=== PATIENT | female | born 1985 | race Caucasian/White ===

== ENCOUNTER 2018-08-31 21:34 | Emergency (ER) | payer MEDICAID, SELFPAY ==
[2018-08-31 21:39] VITALS: BP 158/81; PULSE 102; RESP 22; TEMP 36.9; O2SAT 99
[2018-08-31] MEDS: Albuterol/Ipratropium 3 ML UPD VIAL (21:46)
[2018-08-31] MEDS: Dexamethasone 4 MG TAB 8 MG PO (21:57)
--- NOTE | 2018-08-31 22:06 | DI.RAD_ITS ---
SYMPTOM/DIAGNOSIS: COUGH AFTER EXPOSURE TO MOLD PA AND LATERAL CHEST: The heart is normal in size. The lungs are clear. The mediastinal structures and pleura appear intact. CONCLUSION: Normal chest. No evidence of acute cardiopulmonary disease.
[2018-08-31 22:37] VITALS: BP 113/79; PULSE 108; O2SAT 100
[2018-08-31] MEDS: Albuterol/Ipratropium 3 ML UPD VIAL UPD (22:38)
[2018-08-31] MEDS: guaiFENesin/CODEINE PHOSPHATE 10 ML CUP PO (22:50)
--- NOTE | 2018-08-31 23:02 | W.ED.GENAD ---
Discharge Plan Disposition Patient Disposition: HOME Condition: Improving Discharge Details Chief Complaint: RespSymp Clinical Impression: Exacerbation of reactive airway disease Primary Care Provider: Graciela Mohamud ED Provider: Lucien Young Home Meds and New Rx's Prescriptions: New dexamethasone 6 mg tablet 6 mg PO DAILY Qty: 4 RF: 0 Robitussin Cough-Chest Vargas DM 5-100 mg/5 mL liquid 10 ml PO Q6H PRN (Reason: cough) Qty: 237 RF: 0 benzonatate [Tessalon Perles] 100 mg capsule 100 mg PO TID PRN (Reason: cough) Qty: 14 RF: 0 Continued venlafaxine [Effexor XR] 37.5 MG capsule,extended release 24hr 75 mg PO DAILY RF: 0 venlafaxine [Effexor XR] 37.5 MG capsule,extended release 24hr 150 mg PO DAILY RF: 0 pantoprazole 40 MG tablet,delayed release (DR/EC) 40 mg PO DAILY RF: 0 levothyroxine [Synthroid] 75 MCG tablet 75 mcg PO DAILY RF: 0 albuterol sulfate 8.5 GM HFA aerosol inhaler 2 puff Inhalation QID PRN PRNRF: 0 methylphenidate HCl [Ritalin] 20 MG tablet 20 mg PO TID RF: 0 metformin [Glucophage] 1,000 MG tablet 500 mg PO TID RF: 0 loratadine [Claritin Liqui-Gel] 10 MG capsule 1 tab PO DAILY RF: 0 No Action hydrocodone-acetaminophen 5-300 mg tablet 1 tab PO Q6H PRN (Reason: pain) Qty: 10 RF: 0 Discharge Instructions Instructions: Reactive Airways Disease (ED) Additional Instructions: Rest this evening. Small, frequent sips of fluids to maintain hydration. May try a teaspoon of honey at night to decrease her cough as well. Take dexamethasone as prescribed May use the provided Robitussin, Tessalon and subsequent prescription as needed for cough. Albuterol as needed for cough and wheeze. Please follow-up with your regular doctor in the next 7-10 days time for recheck Discharge Data Discharge Date/Time-TO BE ENTERED AT DEPARTURE: 08/31/18 23:56 Medical Decision Making 32-year-old female presents from home with cough and shortness of breath that worsened when her landlord attempted to investigate mold in the [place] of her apartment. She does have a history of reactive airway disease. She arrives afebrile, mildly tachycardic at 102 with diminished breath sounds throughout. Differential diagnosis includes asthma exacerbation, pneumonia, must exclude pneumothorax. Patient was given oral steroids and inhaled DuoNeb as well as antitussive. Referred for chest x-ray. Chest x-ray unremarkable. Patient improved with treatment for reactive airway disease. She will follow-up with her landlord regarding mold in the domicile. Treated with a burst steroids, dexamethasone given her intolerance of prednisone. She also be prescribed antitussive. Stable for discharge to home HPI General Mode of arrival: ambulatory. Date/Time Provider Initiated Documentation: 08/31/18 21:41. Limitations to Documentation: no limitations. Information obtained by: patient and family. History of Present Illness 32 year old F presents to the emergency department with the chief complaint of Cough and shortness of breath after mold exposure, described as moderate, Quality is described as dull and constant, and is localized to the chest. Patient reports no radiation. Patient started experiencing this hour(s) and it has been constant. No relieving factors improve symptom(s), No exacerbating factors reported . Patient notes cough and shortness of breath; denies chest pain and fever/chills. Patient did receive the following treatments prior to arrival, other (Home inhaler) Related Data Home Medications Medication Instructions Recorded Confirmed pantoprazole 40 mg PO DAILY 03/19/13 09/05/18 levothyroxine [Synthroid] 75 mcg PO DAILY 06/23/13 09/05/18 albuterol sulfate 2 puff INHALATION QID PRN PRN 08/31/14 09/05/18 venlafaxine [Effexor XR] 75 mg PO DAILY tab-cap 07/26/16 09/05/18 venlafaxine [Effexor XR] 150 mg PO DAILY tab-cap 07/26/16 09/05/18 loratadine [Claritin Liqui-Gel] 1 tab PO DAILY 03/18/17 09/05/18 metformin [Glucophage] 500 mg PO TID 03/18/17 09/05/18 methylphenidate HCl [Ritalin] 20 mg PO TID 03/18/17 09/05/18 Robitussin Cough-Chest Vargas DM 10 ml PO Q6H PRN #237 ml 08/31/18 09/05/18 benzonatate [Tessalon Perles] 100 mg PO TID PRN #14 cap 08/31/18 09/05/18 dexamethasone 6 mg PO DAILY #4 tab 08/31/18 09/05/18 hydrocodone-acetaminophen 1 tab PO Q6H PRN #10 tab 09/05/18 Previous Rx's Medication Instructions Recorded Robitussin Cough-Chest Vargas DM 10 ml PO Q6H PRN #237 ml 08/31/18 benzonatate [Tessalon Perles] 100 mg PO TID PRN #14 cap 08/31/18 dexamethasone 6 mg PO DAILY #4 tab 08/31/18 hydrocodone-acetaminophen 1 tab PO Q6H PRN #10 tab 09/05/18 Allergies Allergy/AdvReac Type Severity Reaction Status Date / Time Sulfa (Sulfonamide Allergy rash/vomiti Unverified 09/05/18 05:03 Antibiotics) ng ibuprofen AdvReac Psychosis Unverified 09/05/18 05:03 prednisone AdvReac flashes of Unverified 09/05/18 05:03 light/feels drunk General Stated Complaint: RespSymp TANA: 4 Review of Systems Review of Systems Patient concern for mold in home. Landlord investigated today and cough increased. 6 systems reviewed and otherwise negative [facility] Medical History deep vein thrombosis with complication Depression Impaired glucose tolerance Irritable colon Menorrhagia Positive urine drug screen Subclinical hypothyroidism Surgical History section Dilation and curettage (06/23/13) Hysterectomy, Laproscopic Ligation of fallopian tube (11/27/07) Sigmoidoscopy Family History Father Diabetes Heart disease Hyperlipidemia Grandmother Diabetes paternal uncle Mental disorder Social History Smoking/Tobacco Use Status: Never Alcohol Intake: never Drug use: Never Substance use type: does not use Do you feel safe in your relationship?: Yes Additional Social history: unable to assess privately Exam Narrative Exam Narrative: GEN: awake, alert, oriented 3. Pleasant, well groomed, interactive. HEAD: Normocephalic, atraumatic ENT: Mucous membranes moist, oropharynx unremarkable, External ear exam unremarkable EYES: PERRL, EOMI NECK: Full ROM, no ISMA, no menigismus CHEST/RESP: Nontender, diminished bilaterally with end expiratory wheeze. Cough noted. CARDIOVASCULAR: RRR, no murmur, rub delroy. 2+ Rad pulse bilateral ABDOMEN: Soft, nontender, no mass. +Bowel sounds EXT: Full ROM, no edema, no rash Neuro: Grossly normal neurologic exam, conversant, interactive. Psych: Speech fluent, thoughts congruent, affect normal Course Vital Signs Temperature 36.9 C 08/31/18 21:39 Pulse 102 H 08/31/18 21:39 Respiratory Rate 22 08/31/18 21:39 Blood Pressure 158/81 H 08/31/18 21:39 Pulse Oximetry 99 08/31/18 21:39 Temperature 36.9 C 08/31/18 21:39 Temperature Source Skin 08/31/18 21:39 Pulse 108 H 08/31/18 22:37 Respiratory Rate 22 08/31/18 21:39 Respiratory Effort 08/31/18 21:50 Respiratory Depth Normal 08/31/18 21:50 Blood Pressure 113/79 08/31/18 22:37 Blood Pressure Position Sitting 08/31/18 21:39 Pulse Oximetry 100 08/31/18 22:37 Oxygen Delivery Method Room Air 08/31/18 22:37 Oxygen Flow Rate 0 08/31/18 22:37 Pain Level 6 08/31/18 21:39
--- NOTE | 2018-08-31 23:08 | ED.GENADUL_ITS ---
Discharge Plan Disposition Patient Disposition: HOME Condition: Improving Discharge Details Chief Complaint: RespSymp Clinical Impression: Exacerbation of reactive airway disease Primary Care Provider: Graciela Mohamud ED Provider: Lucien Young Home Meds and New Rx's Prescriptions: New dexamethasone 6 mg tablet 6 mg PO DAILY Qty: 4 RF: 0 Robitussin Cough-Chest Vargas DM 5-100 mg/5 mL liquid 10 ml PO Q6H PRN (Reason: cough) Qty: 237 RF: 0 benzonatate [Tessalon Perles] 100 mg capsule 100 mg PO TID PRN (Reason: cough) Qty: 14 RF: 0 Continued venlafaxine [Effexor XR] 37.5 MG capsule,extended release 24hr 75 mg PO DAILY RF: 0 venlafaxine [Effexor XR] 37.5 MG capsule,extended release 24hr 150 mg PO DAILY RF: 0 pantoprazole 40 MG tablet,delayed release (DR/EC) 40 mg PO DAILY RF: 0 levothyroxine [Synthroid] 75 MCG tablet 75 mcg PO DAILY RF: 0 albuterol sulfate 8.5 GM HFA aerosol inhaler 2 puff Inhalation QID PRN PRNRF: 0 methylphenidate HCl [Ritalin] 20 MG tablet 20 mg PO TID RF: 0 metformin [Glucophage] 1,000 MG tablet 500 mg PO TID RF: 0 loratadine [Claritin Liqui-Gel] 10 MG capsule 1 tab PO DAILY RF: 0 No Action hydrocodone-acetaminophen 5-300 mg tablet 1 tab PO Q6H PRN (Reason: pain) Qty: 10 RF: 0 Discharge Instructions Instructions: Reactive Airways Disease (ED) Additional Instructions: Rest this evening. Small, frequent sips of fluids to maintain hydration. May try a teaspoon of honey at night to decrease her cough as well. Take dexamethasone as prescribed May use the provided Robitussin, Tessalon and subsequent prescription as needed for cough. Albuterol as needed for cough and wheeze. Please follow-up with your regular doctor in the next 7-10 days time for recheck Discharge Data Discharge Date/Time-TO BE ENTERED AT DEPARTURE: 08/31/18 23:56 Medical Decision Making 32-year-old female presents from home with cough and shortness of breath that worsened when her landlord attempted to investigate mold in the [place] of her apartment. She does have a history of reactive airway disease. She arrives afebrile, mildly tachycardic at 102 with diminished breath sounds throughout. Differential diagnosis includes asthma exacerbation, pneumonia, must exclude pneumothorax. Patient was given oral steroids and inhaled DuoNeb as well as antitussive. Referred for chest x-ray. Chest x-ray unremarkable. Patient improved with treatment for reactive airway disease. She will follow-up with her landlord regarding mold in the domicile. Treated with a burst steroids, dexamethasone given her intolerance of prednisone. She also be prescribed antitussive. Stable for discharge to home HPI General Mode of arrival: ambulatory . Date/Time Provider Initiated Documentation: 08/31/18 21:41 . Limitations to Documentation: no limitations . Information obtained by: patient and family . History of Present Illness 32 year old F presents to the emergency department with the chief complaint of Cough and shortness of breath after mold exposure, described as moderate, Quality is described as dull and constant, and is localized to the chest. Patient reports no radiation. Patient started experiencing this hour(s) and it has been constant. No relieving factors improve symptom(s), No exacerbating factors reported . Patient notes cough and shortness of breath; denies chest pain and fever/chills. Patient did receive the following treatme nts prior to arrival, other (Home inhaler) Related Data Home Medications Medication Instructions Recorded Confirmed pantoprazole 40 mg PO DAILY 03/19/13 09/05/18 levothyroxine [Synthroid] 75 mcg PO DAILY 06/23/13 09/05/18 albuterol sulfate 2 puff INHALATION QID PRN PRN 08/31/14 09/05/18 venlafaxine [Effexor XR] 75 mg PO DAILY tab-cap 07/26/16 09/05/18 venlafaxine [Effexor XR] 150 mg PO DAILY tab-cap 07/26/16 09/05/18 loratadine [Claritin Liqui-Gel] 1 tab PO DAILY 03/18/17 09/05/18 metformin [Glucophage] 500 mg PO TID 03/18/17 09/05/18 methylphenidate HCl [Ritalin] 20 mg PO TID 03/18/17 09/05/18 Robitussin Cough-Chest Vargas DM 10 ml PO Q6H PRN #237 ml 08/31/18 09/05/18 benzonatate [Tessalon Perles] 100 mg PO TID PRN #14 cap 08/31/18 09/05/18 dexamethasone 6 mg PO DAILY #4 tab 08/31/18 09/05/18 hydrocodone-acetaminophen 1 tab PO Q6H PRN #10 tab 09/05/18 Previous Rx's Medication Instructions Recorded Robitussin Cough-Chest Vargas DM 10 ml PO Q6H PRN #237 ml 08/31/18 benzonatate [Tessalon Perles] 100 mg PO TID PRN #14 cap 08/31/18 dexamethasone 6 mg PO DAILY #4 tab 08/31/18 hydrocodone-acetaminophen 1 tab PO Q6H PRN #10 tab 09/05/18 Allergies Allergy/AdvReac Type Severity Reaction Status Date / Time Sulfa (Sulfonamide Allergy rash/vomiti Unverified 09/05/18 05:03 Antibiotics) ng ibuprofen AdvReac Psychosis Unverified 09/05/18 05:03 prednisone AdvReac flashes of Unverified 09/05/18 05:03 light/feels drunk General Stated Complaint: RespSymp TANA: 4 Review of Systems Review of Systems Patient concern for mold in home. Landlord investigated today and cough increased. 6 systems reviewed and otherwise negative [facility] Medical History deep vein thrombosis with complication Depression Impaired glucose tolerance Irritable colon Menorrhagia Positive urine drug screen Subclinical hypothyroidism Surgical History section Dilation and curettage (06/23/13) Hysterectomy, Laproscopic Ligation of fallopian tube (11/27/07) Sigmoidoscopy Family History Father Diabetes Heart disease Hyperlipidemia Grandmother Diabetes paternal uncle Mental disorder Social History Smoking/Tobacco Use Status: Never Alcohol Intake: never Drug use: Never Substance use type: does not use Do you feel safe in your relationship?: Yes Additional Social history: unable to assess privately Exam Narrative Exam Narrative: GEN: awake, alert, oriented 3. Pleasant, well groomed, interactive. HEAD: Normocephalic, atraumatic ENT: Mucous membranes moist, oropharynx unremarkable, External ear exam unremarkable EYES: PERRL, EOMI NECK: Full ROM, no ISMA, no menigismus CHEST/RESP: Nontender, diminished bilaterally with end expiratory wheeze. Cough noted. CARDIOVASCULAR: RRR, no murmur, rub delroy. 2+ Rad pulse bilateral ABDOMEN: Soft, nontender, no mass. +Bowel sounds EXT: Full ROM, no edema, no rash Neuro: Grossly normal neurologic exam, conversant, interactive. Psych: Speech fluent, thoughts congruent, affect normal Course Vital Signs Temperature 36.9 C 08/31/18 21:39 Pulse 102 H 08/31/18 21:39 Respiratory Rate 22 08/31/18 21:39 Blood Pressure 158/81 H 08/31/18 21:39 Pulse Oximetry 99 08/31/18 21:39 Temperature 36.9 C 08/31/18 21:39 Temperature Source Skin 08/31/18 21:39 Pulse 108 H 08/31/18 22:37 Respiratory Rate 22 08/31/18 21:39 Respiratory Effort 08/31/18 21:50 Respiratory Depth Normal 08/31/18 21:50 Blood Pressure 113/79 08/31/18 22:37 Blood Pressure Position Sitting 08/31/18 21:39 Pulse Oximetry 100 08/31/18 22:37 Oxygen Delivery Method Room Air 08/31/18 22:37 Oxygen Flow Rate 0 08/31/18 22:37 Pain Level 6 08/31/18 21:39
--- NOTE | 2018-08-31 23:23 | DI.VRAD_ITS ---
EXAM: XR Chest, 2 Views EXAM DATE/TIME: 08/31/2018 10:07 PM CLINICAL HISTORY: 32 years old, female; Signs and symptoms; Cough; Patient HX: Cough after exposure to mold TECHNIQUE: XR of the chest, 2 views. COMPARISON: CR CHEST 2 VIEWS PA,LAT 03/18/2017 6:35 PM FINDINGS: Lungs: Unremarkable. No consolidation. Pleural space: Unremarkable. No pleural effusion. No pneumothorax. Heart/Mediastinum: Unremarkable. No cardiomegaly. Bones/joints: Unremarkable. IMPRESSION: Negative chest. Dictated and Authenticated by: Dereck Cazares MD. Ordering:LIBBY Mcgraw MD
[2018-08-31] MEDS: Albuterol HFA 8 GM 60 PUFF INH IH (23:47)
[2018-08-31] MEDS: Benzonatate 100 MG CAP 300 MG PO (23:47)
[2018-08-31] MEDS: guaiFENesin/CODEINE PHOSPHATE 10 ML CUP 20 ML PO (23:53)
[2018-08-31 23:55] VITALS: BP 148/67; PULSE 109; RESP 18; TEMP 37.1; O2SAT 99
== END 2018-08-31 23:56 | disposition home or self-care (01) ==
PROVIDERS: Emergency Provider Emergency Medicine; PCP Nurse Practitioner Family
DX: J18.9 Pneumonia, unspecified organism (principal)
CPT/HCPCS: 94640; 99283; 71046; J7620; J8540

== ENCOUNTER 2018-09-05 04:25 | Emergency (ER) | payer MEDICAID, SELFPAY ==
[2018-09-05 04:32] VITALS: BP 129/89; PULSE 102; RESP 16; TEMP 36.5; O2SAT 96
--- NOTE | 2018-09-05 04:39 | ED.GENADUL_ITS ---
Discharge Plan Disposition Patient Disposition: HOME Condition: Good Discharge Details Chief Complaint: Orthopedic Clinical Impression: Left knee injury Primary Care Provider: Graciela Mohamud ED Provider: Yannick Johnson [place] Meds and New Rx's Prescriptions: New hydrocodone-acetaminophen 5-300 mg tablet 1 tab PO Q6H PRN (Reason: pain) Qty: 10 RF: 0 Continued venlafaxine [Effexor XR] 37.5 MG capsule,extended release 24hr 75 mg PO DAILY RF: 0 venlafaxine [Effexor XR] 37.5 MG capsule,extended release 24hr 150 mg PO DAILY RF: 0 pantoprazole 40 MG tablet,delayed release (DR/EC) 40 mg PO DAILY RF: 0 levothyroxine [Synthroid] 75 MCG tablet 75 mcg PO DAILY RF: 0 albuterol sulfate 8.5 GM HFA aerosol inhaler 2 puff Inhalation QID PRN PRNRF: 0 methylphenidate HCl [Ritalin] 20 MG tablet 20 mg PO TID RF: 0 metformin [Glucophage] 1,000 MG tablet 500 mg PO TID RF: 0 loratadine [Claritin Liqui-Gel] 10 MG capsule 1 tab PO DAILY RF: 0 dexamethasone 6 mg tablet 6 mg PO DAILY Qty: 4 RF: 0 Robitussin Cough-Chest Vargas DM 5-100 mg/5 mL liquid 10 ml PO Q6H PRN (Reason: cough) Qty: 237 RF: 0 benzonatate [Tessalon Perles] 100 mg capsule 100 mg PO TID PRN (Reason: cough) Qty: 14 RF: 0 Discharge Instructions Additional Instructions: Wear knee immobilizer and use crutches to help with the knee pain. Weight-bear as tolerated. Elevate and ice over the weekend. Take Aleve twice a day. Use hydrocodone/acetaminophen as needed for uncontrolled pain. Follow-up with primary care next week for reevaluation. May need referral to orthopedics and/or MRI if continued significant pain and swelling to rule out cartilage or ligament injury. Referrals: Graciela Mohamud [Primary Care Provider] - Medical Decision Making Patient reports allergy to Motrin but has had Toradol in the past and tolerated. She will be given a shot of Toradol. There is no direct trauma to t he knee but it does appear to have an effusion. She is able to extend and lift her heel off the bed though causes significant pain. However, patellar and quadricep tendon intact with the ability to extend. Doubt bony injury but I am not able to examined the knee at all. Will obtain x-ray but suspect this is related to cartilage injury with effusion causing the majority of her pain. X-rays per my read as well as preliminary radiology read negative for bony injury. She will be placed in a knee immobilizer and put on weightbearing as tolerated status. Toradol has not really helped so she is given a dose of Vicodin. I did review her in the [place] prescription monitoring site. She has no narcotic prescriptions only her Ritalin. Vicodin and immobilization has helped significantly. She still has pain but it is manageable. She would like crutches and will be weightbearing as tolerated over the weekend. She does tolerate Aleve so I will have her use that twice a day. I will give her prescription for 10 Vicodin. State information sheet given and informed consent signed. She is to keep the leg elevated and iced. Follow-up with primary care and may need referral to orthopedics for possible meniscal or ligamentous injury. HPI General Mode of arrival: ambulatory . Date/Time Provider Initiated Documentation: 09/05/18 04:36 . Limitations to Documentation: no limitations . Information obtained by: patient . HPI Narrative: Patient presents to ED with complaints of worsening left knee pain. Patient reports hyperextending and twisting the knee when getting off her couch yesterday. 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 She denies direct trauma to the knee. She has been using heat, ice, Tylenol, gabapentin but the knee continues to get worse. She is having difficulty with range of motion or weightbearing because of pain. She denies other injury. She only has pain in the left knee not throughout the left leg. Related Data Home Medications Medication Instructions Recorded Confirmed pantoprazole 40 mg PO DAILY 03/19/13 09/05/18 levothyroxine [Synthroid] 75 mcg PO DAILY 06/23/13 09/05/18 albuterol sulfate 2 puff INHALATION QID PRN PRN 08/31/14 09/05/18 venlafaxine [Effexor XR] 75 mg PO DAILY tab-cap 07/26/16 09/05/18 venlafaxine [Effexor XR] 150 mg PO DAILY tab-cap 07/26/16 09/05/18 loratadine [Claritin Liqui-Gel] 1 tab PO DAILY 03/18/17 09/05/18 metformin [Glucophage] 500 mg PO TID 03/18/17 09/05/18 methylphenidate HCl [Ritalin] 20 mg PO TID 03/18/17 09/05/18 Robitussin Cough-Chest Vargas DM 10 ml PO Q6H PRN #237 ml 08/31/18 09/05/18 benzonatate [Tessalon Perles] 100 mg PO TID PRN #14 cap 08/31/18 09/05/18 dexamethasone 6 mg PO DAILY #4 tab 08/31/18 09/05/18 hydrocodone-acetaminophen 1 tab PO Q6H PRN #10 tab 09/05/18 Previous Rx's Medication Instructions Recorded Robitussin Cough-Chest Vargas DM 10 ml PO Q6H PRN #237 ml 08/31/18 benzonatate [Tessalon Perles] 100 mg PO TID PRN #14 cap 08/31/18 dexamethasone 6 mg PO DAILY #4 tab 08/31/18 hydrocodone-acetaminophen 1 tab PO Q6H PRN #10 tab 09/05/18 Allergies Allergy/AdvReac Type Severity Reaction Status Date / Time Sulfa (Sulfonamide Allergy rash/vomiti Unverified 09/05/18 05:03 Antibiotics) ng ibuprofen AdvReac Psychosis Unverified 09/05/18 05:03 prednisone AdvReac flashes of Unverified 09/05/18 05:03 light/feels drunk General Stated Complaint: Orthopedic TANA: 4 Review of Systems Constitutional Denies fever(s) and Denies weakness Musculoskeletal Reports joint swelling, Reports limited range of motion, Denies numbness and Denies tingling Integumentary/Breasts Denies erythema Neurologic Denies numbness, Denies tingling, Denies paresthesias and Denies weakness [facility] Medical History deep vein thrombosis with complication Depression Impaired glucose tolerance Irritable colon Menorrhagia Positive urine drug screen Subclinical hypothyroidism Surgical History section Dilation and curettage (06/23/13) Hysterectomy, Laproscopic Ligation of fallopian tube (11/27/07) Sigmoidoscopy Social History Smoking/Tobacco Use Status: Never Alcohol Intake: never Drug use: Never Substance use type: does not use Do you feel safe in your relationship?: Yes Additional Social history: unable to assess privately Exam Const General: cooperative, uncomfortable and anxious Orientation: alert and oriented x3 Skin General skin exam: no erythema Rashes: no rashes Neuro General: alert, oriented x3, no focal motor deficits and CN's II-XI intact bilaterally Sensory Exam: no sensory deficits noted Extrem General: normal exam except as noted Left lower extremity: knee Details: tenderness (unable to palpate anywhere without pain), swelling (effusion present), abnormal ROM Details: held in an abnormal fashion Details: in flexion (about 10 - 15 degrees); able to extend lower leg actively and other (NVI distal with sensation present, good distal strength and normal DP/PT pulse); no unusual warmth Course Vital Signs Temperature 97.7 F 09/05/18 04:32 Pulse 102 H 09/05/18 04:32 Respiratory Rate 16 09/05/18 04:32 Blood Pressure 129/89 09/05/18 04:32 Pulse Oximetry 96 09/05/18 04:32 Temperature 97.7 F 09/05/18 04:32 Temperature Source Temporal Artery Scan 09/05/18 04:32 Pulse 102 H 09/05/18 04:32 Respiratory Rate 16 09/05/18 04:32 Respiratory Effort Non-Labored 09/05/18 04:35 Blood Pressure 129/89 09/05/18 04:32 Blood Pressure Position Sitting 09/05/18 04:32 Pulse Oximetry 96 09/05/18 04:32 Oxygen Delivery Method Room Air 09/05/18 04:32 Oxygen Flow Rate 0 09/05/18 04:32 Pain Level 10 09/05/18 04:32
[2018-09-05] MEDS: Ketorolac 30 MG/ML VIAL IM (05:00)
--- NOTE | 2018-09-05 05:09 | DI.RAD_ITS ---
SYMPTOM/DIAGNOSIS: PAIN, SWELLING, INDIRECT TRAUMA LEFT KNEE: No fracture or joint effusion is seen. The joint spaces are well maintained. IMPRESSION: Negative left knee.
--- NOTE | 2018-09-05 05:28 | DI.VRAD_ITS ---
EXAM: XR Left Knee, 3 Views EXAM DATE/TIME: 09/05/2018 5:10 AM CLINICAL HISTORY: 32 years old, female; Pain; Knee; Left; Additional info: Hyperextension, pain afterwards TECHNIQUE: Imaging protocol: XR Left knee 3 views. COMPARISON: No relevant prior studies available. FINDINGS: Bones/joints: Bone mineralization is age-appropriate. There is no evidence of fracture. No evidence of dislocation. The joint spaces are adequately preserved; no significant degenerative narrowing and no bony erosion seen. Soft tissues: No radiopaque foreign body present. There is mild soft tissue swelling present. IMPRESSION: 1. No acute osseous abnormality. 2. Soft tissue swelling only. Dictated and Authenticated by: Ronald Nathan MD. Ordering:JOHNNY Lanier MD
[2018-09-05] MEDS: HYDROcodone 5/Acetaminophen 325 TAB PO (05:42)
[2018-09-05 06:42] VITALS: BP 116/77; PULSE 92; RESP 16; TEMP 36.5; O2SAT 96
== END 2018-09-05 06:55 | disposition home or self-care (01) ==
PROVIDERS: Emergency Provider Emergency Medicine; PCP Nurse Practitioner Family
DX: S89.92XA Unspecified injury of left lower leg, initial encounter (principal); M25.462 Effusion, left knee; X50.9XXA Other and unspecified overexertion or strenuous movements or postures, initial encounter
CPT/HCPCS: 73562; 96372; 99284; 99283; E0114; J1885; L1830

== ENCOUNTER 2018-09-11 13:00 | Outpatient (CLI) | payer MEDICAID, SELFPAY ==
--- NOTE | 2018-09-11 15:12 | DI.MRI_ITS ---
SYMPTOM/DIAGNOSIS: LT KNEE PAIN, M25.562, HYPEREXTENSION INJURY, CHRONIC LOW BACK PAIN, LT LEG SYMPTOMS AND NUMBNESS LT LEG LEFT KNEE MRI: MRI examination of the knee was performed according to the usual protocol. There is significant motion artifact on all pulse sequences. This limits interpretation and in particular, the menisci are not well visualized. No significant bony signal abnormality is seen. No significant soft tissue signal abnormality is seen. Extensor mechanism appears intact. Articular cartilage appears grossly well maintained as visualized. The ACL and PCL appear intact. Menisci not well visualized. No gross collateral ligament tear is seen. CONCLUSION: Limited study. No ACL tear is seen. LUMBOSACRAL SPINE MRI: MRI examination of the lumbosacral spine was performed according to the usual protocol. No significant bony signal abnormality is seen. The conus medullaris appears intact. Neural foramina appear well maintained. No disc herniation identified. No evidence of a central canal spinal stenosis. CONCLUSION: Negative MRI of the lumbosacral spine.
== END 2018-09-11 13:20 ==
PROVIDERS: PCP Nurse Practitioner Family; Visit Provider Nurse Practitioner Family
DX: M25.562 Pain in left knee (principal); M54.5 Low back pain; R20.0 Anesthesia of skin; S89.92XD Unspecified injury of left lower leg, subsequent encounter
CPT/HCPCS: 73721; 72148

== ENCOUNTER 2018-10-21 21:02 | Emergency (ER) | payer MEDICAID, SELFPAY ==
[2018-10-21 21:07] VITALS: BP 115/75; PULSE 97; RESP 16; TEMP 36.9; O2SAT 97
--- NOTE | 2018-10-21 21:17 | ED.GENADUL_ITS ---
Discharge Plan Disposition Patient Disposition: HOME Condition: Stable Discharge Details Chief Complaint: Headache Clinical Impression: Migraine Primary Care Provider: Graciela Mohamud ED Provider: Anurag Peoples Home Meds and New Rx's Prescriptions: New ondansetron 4 mg tablet,disintegrating 4 mg PO TID-QID PRN (Reason: nausea and vomiting) Qty: 20 RF: 0 Continued venlafaxine [Effexor XR] 37.5 MG capsule,extended release 24hr 75 mg PO DAILY RF: 0 venlafaxine [Effexor XR] 37.5 MG capsule,extended release 24hr 150 mg PO DAILY RF: 0 pantoprazole 40 MG tablet,delayed release (DR/EC) 40 mg PO DAILY RF: 0 levothyroxine [Synthroid] 75 MCG tablet 75 mcg PO DAILY RF: 0 albuterol sulfate 8.5 GM HFA aerosol inhaler 2 puff Inhalation QID PRN PRNRF: 0 methylphenidate HCl [Ritalin] 20 MG tablet 20 mg PO TID RF: 0 metformin [Glucophage] 1,000 MG tablet 500 mg PO TID RF: 0 loratadine [Claritin Liqui-Gel] 10 MG capsule 1 tab PO DAILY RF: 0 Discharge Instructions Instructions: Migraine Headache (ED) Additional Instructions: follow up as schedule with the neurologist. If you have severe worsening pain, fevers or persistent vomit return to the emergency department Medical Decision Making 33 yo female with hx of migraines comes in with chief complaint of head pain typical of her migraines and has had it for 3 days. She states the pain is throughout the entire head with the front being the worst. Is not the worst of her life and has slowly been worsening, no findings to suggest SAH. Has no focal neuro deficits and CN II-XII are intact. given her symptoms are like her prior migraines and normal neuro exam doubt cavernous sinus thrombosis or cerebral venous thrombosis. No fevers or menignismus so doubt manager technical support infection. will tx her symptomatically and monitor pt feeling better, asleep on repeat exam and pain has improved, stable neuro exam. will d/c home and advised f/u with her neurologist as scheduled on the Differential Diagnosis migraine, tension headache Medical Records Medical records reviewed: Yes I reviewed the patient's medical records. Lab Data Lab results reviewed: Yes I reviewed the patient's lab results. HPI General Mode of arrival: ambulatory . Date/Time Provider Initiated Documentation: 10/21/18 21:04 . Limitations to Documentation: no limitations . Information obtained by: patient . History of Present Illness 33 year old F presents to the emergency department with the chief complaint of headache, described as severe, Quality is described as stabbing and aching, and is localized to the head. Patient reports no radiation. Patient started experiencing this hour(s) (1) Related Data Home Medications Medication Instructions Recorded Confirmed pantoprazole 40 mg PO DAILY 03/19/13 10/21/18 levothyroxine [Synthroid] 75 mcg PO DAILY 06/23/13 10/21/18 albuterol sulfate 2 puff INHALATION QID PRN PRN 08/31/14 09/05/18 venlafaxine [Effexor XR] 75 mg PO DAILY tab-cap 07/26/16 10/21/18 venlafaxine [Effexor XR] 150 mg PO DAILY tab-cap 07/26/16 10/21/18 loratadine [Claritin Liqui-Gel] 1 tab PO DAILY 03/18/17 10/21/18 metformin [Glucophage] 500 mg PO TID 03/18/17 10/21/18 methylphenidate HCl [Ritalin] 20 mg PO TID 03/18/17 10/21/18 ondansetron 4 mg PO TID-QID PRN #20 tab 10/21/18 Previous Rx's Medication Instructions Recorded ondansetron 4 mg PO TID-QID PRN #20 tab 10/21/18 Allergies Allergy/AdvReac Type Severity Reaction Status Date / Time Sulfa (Sulfonamide Allergy rash/vomiti Unverified 10/21/18 22:08 Antibiotics) ng ibuprofen AdvReac Psychosis Unverified 10/21/18 22:08 prednisone AdvReac flashes of Unverified 10/21/18 22:08 light/feels drunk General Stated Complaint: Headache TANA: 3 Review of Systems Review of Systems All systems reviewed & are unremarkable except as noted in HPI and below Constitutional Denies weakness ENT Denies change in voice Cardiovascular Denies chest pain and Denies dyspnea Respiratory Denies cough and Denies dyspnea Gastrointestinal Denies abdominal pain Integumentary/Breasts Denies rash Neurologic Denies weakness [facility] Medical History deep vein thrombosis with complication Depression Impaired glucose tolerance Irritable colon Menorrhagia Positive urine drug screen Subclinical hypothyroidism Surgical History section Dilation and curettage (06/23/13) Hysterectomy, Laproscopic Ligation of fallopian tube (11/27/07) Sigmoidoscopy Social History Smoking/Tobacco Use Status: Never Alcohol Intake: never Drug use: Never Substance use type: does not use Do you feel safe at home: Yes Do you feel safe in your relationship?: Yes Additional Social history: unable to assess privately Exam Const General: no acute distress Orientation: alert HENMT Head: normal to inspection Ears: external ears normal General nose exam: external nose normal Mouth: moist mucous membranes Eyes General: appearance normal, both eyes and all related structures Neck Neck: normal visual inspection Resp Effort & Inspection: normal respiratory effort and able to speak in complete sentences Cardio Rate: regular rate Skin General skin exam: no rashes or lesions noted Neuro General: alert and oriented x3 Extrem General: normal to inspection Psych Mental Status: mental status grossly normal Course Vital Signs Temperature 36.9 C 10/21/18 21:07 Pulse 97 H 10/21/18 21:07 Respiratory Rate 16 10/21/18 21:07 Blood Pressure 115/75 10/21/18 21:07 Pulse Oximetry 97 10/21/18 21:07 Temperature 36.9 C 10/21/18 21:07 Temperature Source Skin 10/21/18 21:07 Pulse 97 H 10/21/18 21:07 Respiratory Rate 16 10/21/18 21:07 Blood Pressure 115/75 10/21/18 21:07 Blood Pressure Position Supine 10/21/18 21:07 Pulse Oximetry 97 10/21/18 21:07 Oxygen Delivery Method Room Air 10/21/18 21:07 Oxygen Flow Rate 0 10/21/18 21:07 Pain Level 8 10/21/18 21:07
[2018-10-21] MEDS: Normal Saline 1,000 ML 1000 ML IV (21:31)
[2018-10-21] MEDS: Ketorolac 30 MG/ML VIAL 15 MG IVP (21:32)
[2018-10-21] MEDS: Prochlorperazine 10 MG/2 ML VIAL IVP (21:33)
[2018-10-21 22:02] VITALS: BP 98/49; PULSE 83; RESP 18; TEMP 37.1; O2SAT 98
[2018-10-21] MEDS: SUMAtriptan 6 MG/0.5 ML VIAL SC (22:16)
[2018-10-21] MEDS: Dexamethasone 10 MG/ML VIAL IVP (22:16)
--- NOTE | 2018-10-21 22:19 | NUR.NOTE ---
Pt medicated as ordered by MD for ongoing headache after previous medication not effective.
[2018-10-21 22:35] LABS: HCG Qual (Serum) Negative
[2018-10-21] MEDS: Ondansetron O.D.T. 4 MG TABEF PO (22:50)
[2018-10-21 23:00] VITALS: BP 112/68; PULSE 71; RESP 16; TEMP 36.6; O2SAT 96
== END 2018-10-21 22:24 | disposition home or self-care (01) ==
PROVIDERS: Emergency Provider Emergency Medicine; PCP Nurse Practitioner Family
DX: G43.909 Migraine, unspecified, not intractable, without status migrainosus (principal); R73.02 Impaired glucose tolerance (oral)
CPT/HCPCS: 81025; 96361; 96372; 96374; 96375; 99284; 84703; J0780; J1100; J1885

== ENCOUNTER 2018-11-07 12:27 | Emergency (ER) | payer MEDICAID, SELFPAY ==
[2018-11-07 12:35] VITALS: BP 133/74; PULSE 112; RESP 16; TEMP 36.8; O2SAT 98
[2018-11-07] MEDS: Fluorescein STRIPS 100/BOX 1 MG (12:51)
[2018-11-07] MEDS: Tetracaine 0.5% 4 ML BTL (12:51)
--- NOTE | 2018-11-07 13:13 | W.ED.GENAD ---
Discharge Plan Disposition Patient Disposition: HOME Condition: Good Discharge Details Chief Complaint: EyeProblem Clinical Impression: Acute left eye pain Primary Care Provider: Graciela Mohamud ED Provider: Joni Escudero Home Meds and New Rx's Prescriptions: No Action venlafaxine [Effexor XR] 37.5 MG capsule,extended release 24hr 75 mg PO DAILY RF: 0 venlafaxine [Effexor XR] 37.5 MG capsule,extended release 24hr 150 mg PO DAILY RF: 0 pantoprazole 40 MG tablet,delayed release (DR/EC) 40 mg PO DAILY RF: 0 levothyroxine [Synthroid] 75 MCG tablet 75 mcg PO DAILY RF: 0 albuterol sulfate 8.5 GM HFA aerosol inhaler 2 puff Inhalation QID PRN PRNRF: 0 methylphenidate HCl [Ritalin] 20 MG tablet 20 mg PO TID RF: 0 metformin [Glucophage] 1,000 MG tablet 500 mg PO TID RF: 0 loratadine [Claritin Liqui-Gel] 10 MG capsule 1 tab PO DAILY RF: 0 ondansetron 4 mg tablet,disintegrating 4 mg PO TID-QID PRN (Reason: nausea and vomiting) Qty: 20 RF: 0 Discharge Instructions Additional Instructions: Please go directly to Dr. Hui's office. Have someone else drive you. If you notice any worsening of your symptoms, or any new symptoms such as vomiting, diarrhea, fever, chills, shortness of breath, chest pain, numbness, weakness, or fainting , please return immediately to the emergency department for reevaluation. Please follow up with your primary care provider as soon as possible for reassessment and reevaluation. As always, it was a pleasure participating in your medical care today. Discharge Data Discharge Date/Time-TO BE ENTERED AT DEPARTURE: 11/07/18 13:19 Medical Decision Making This is a 33-year-old female who presents with complaint of left eye pain. She describes it as a gritty sensation, however now there is an additive achy component which is causing a left-sided headache. She does admit to occasional blurry vision and occasional large spots in her eye that are black. She denies any dark curtain coming down over her vision. She denies any trauma. She denies any fever or chills. Exam demonstrates an unremarkable eye, no evidence of corneal abrasion, optic disc appears normal, bedside ultrasound shows no evidence of retinal detachment. Intraocular pressures are measured as follows: Left eye 16 right eye 11. However in spite of these normal pressures I am notably concerned for an acute angle-closure glaucoma as her history is certainly concerning for this in conjunction with her symptomatology. With no other emergent etiology identified at this time, I discussed the case with Dr. Hui personally over the phone, and he would like to evaluate the patient at his clinic immediately. The patient will be sent over with her for repeat intraocular testing and further ophthalmologic evaluation. I have extensively reviewed the treatment plan and discharge instructions with the patient and their family. I have addressed all patient concerns at this time. The patient and family was made aware of what symptoms to monitor for that would warrant a return to the emergency department. Discussed the plan with the patient and family, they demonstrate verbal understanding and agreement with our assessment and plan at this time. Ocular US Exam type: diagnostic Indication for exam: vision complaint Views obtained: Right eye transverse and longitudinal Findings and interpretations: all views were adequate. Retinal contour was normal. Vitreous body was anechoic. Lens was well positioned. No evidence of lens dislocation or retinal detachment. Optic nerve was measured and found to be less than 5mm. The patient tolerated the procedure well and there were no complications. HPI General Date/Time Provider Initiated Documentation: 11/07/18 13:10. HPI Narrative: This is a pleasant 33-year-old female with a past medical history of preglaucoma, who presents today for evaluation of left eye pain and irritation. The patient states that for the last 24 hours she has noted a grittiness/gritty sensation in her left eye, there is been initially mild irritation but now it has progressed the pain in the left eye causing a left-sided headache. Symptoms are made worse with light, she does note occasional episodes where she will lose large spots in her vision, however this resolves on its own. She does state that she has preglaucoma but her pressures are normal. She denies any trauma. She denies any fever or chills, she denies history of stroke, hypertension, high cholesterol or smoking. She has no other complaints of this at this time. Related Data Home Medications Medication Instructions Recorded Confirmed pantoprazole 40 mg PO DAILY 03/19/13 11/07/18 levothyroxine [Synthroid] 75 mcg PO DAILY 06/23/13 11/07/18 albuterol sulfate 2 puff INHALATION QID PRN PRN 08/31/14 11/07/18 venlafaxine [Effexor XR] 75 mg PO DAILY tab-cap 07/26/16 11/07/18 venlafaxine [Effexor XR] 150 mg PO DAILY tab-cap 07/26/16 11/07/18 loratadine [Claritin Liqui-Gel] 1 tab PO DAILY 03/18/17 11/07/18 metformin [Glucophage] 500 mg PO TID 03/18/17 11/07/18 methylphenidate HCl [Ritalin] 20 mg PO TID 03/18/17 11/07/18 ondansetron 4 mg PO TID-QID PRN #20 tab 10/21/18 11/07/18 Previous Rx's Medication Instructions Recorded ondansetron 4 mg PO TID-QID PRN #20 tab 10/21/18 Allergies Allergy/AdvReac Type Severity Reaction Status Date / Time Sulfa (Sulfonamide Allergy rash/vomiti Unverified 11/07/18 12:39 Antibiotics) ng ibuprofen AdvReac Psychosis Unverified 11/07/18 12:39 prednisone AdvReac flashes of Unverified 11/07/18 12:39 light/feels drunk General Stated Complaint: EyeProblem TANA: 5 Review of Systems Review of Systems All systems reviewed & are unremarkable except as noted in HPI and below PFSH Social History Smoking/Tobacco Use Status: Never Alcohol Intake: never Drug use: Never Substance use type: does not use Do you feel safe at home: Yes Do you feel safe in your relationship?: Yes Additional Social history: unable to assess privately Exam Narrative Exam Narrative: 1.Const: Well-nourished, Well-developed, appearing stated age 2.Eyes: PERRL, no conjunctival injection, and symmetrical lids. Right and left eye: EOMI, PERRL, Peripheral vision intact. No nystagmus. Fundoscopic exam shows normal optic discs and normal vasculature. No external signs of preseptal cellulitis, no redness around the eye, no proptosis. No hyphema, no signs of trauma around the eye, no periorbital emphysema. Fluorescein exam is negative for corneal abrasion, negative Wilner sign. Visual acuity as documented in chart. Left eye does demonstrate a slightly narrow angle. 3.ENT: Atraumatic external nose and ears. Moist MM. Neck: Symmetric, trachea midline, No thyromegaly. 4.CVS: +S1/S2, No murmurs or gallops. Peripheral pulses 2+ and equal in all extremities. Brisk capillary refill in all extremities. 5.RESP: Unlabored respiratory effort. Clear to auscultation bilaterally. No wheezes rales or rhonchi 6.GI: Soft, Nontender/Nondistended, No hepatosplenomegaly. No guarding or rebound. 7.MSK: Normocephalic/Atraumatic, Extremities w/o deformity or ttp No cyanosis or clubbing, Normal movement of all extremities 8.Skin: Warm, Dry. No rashes or lesions. 9.Neuro: developmental training counselor II-XII grossly intact. Sensation grossly intact, no focal neurologic deficits. 10.Psych: (AAO) x3. Appropriate mood and affect Course Vital Signs Temperature 36.8 C 11/07/18 12:35 Pulse 112 H 11/07/18 12:35 Respiratory Rate 16 11/07/18 12:35 Blood Pressure 133/74 11/07/18 12:35 Pulse Oximetry 98 11/07/18 12:35 Temperature 36.8 C 11/07/18 12:35 Temperature Source Skin 11/07/18 12:35 Pulse 112 H 11/07/18 12:35 Respiratory Rate 16 11/07/18 12:35 Respiratory Effort Non-Labored 11/07/18 12:37 Blood Pressure 133/74 11/07/18 12:35 Pulse Oximetry 98 11/07/18 12:35 Pain Level 6 11/07/18 12:35
== END 2018-11-07 13:19 | disposition home or self-care (01) ==
PROVIDERS: Emergency Provider Student in an Organized Health Care Education/Training Program; PCP Nurse Practitioner Family
DX: H57.12 Ocular pain, left eye (principal); H40.009 Preglaucoma, unspecified, unspecified eye; R51 Headache
CPT/HCPCS: 99283

== ENCOUNTER 2018-11-24 21:44 | Emergency (ER) | payer MEDICAID, SELFPAY ==
[2018-11-24 21:55] VITALS: BP 139/51; PULSE 83; RESP 18; TEMP 36.9; O2SAT 95
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
[2018-11-24] MEDS: Acetaminophen 500 MG TAB PO (22:13)
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
[2018-11-24 22:50] VITALS: BP 139/51; PULSE 83; RESP 18; O2SAT 95
== END 2018-11-24 22:50 | disposition home or self-care (01) ==
PROVIDERS: Emergency Provider Emergency Medicine; PCP Nurse Practitioner Family
DX: S60.221A Contusion of right hand, initial encounter (principal); W22.8XXA Striking against or struck by other objects, initial encounter
CPT/HCPCS: 29125; 99283; 73130; 99282; L3908

== ENCOUNTER 2018-12-11 14:21 | Outpatient (REF) | payer MEDICAID, SELFPAY ==
[2018-12-11 18:58] LABS: HCT 41.9 % (36.0-46.0); HGB 13.6 g/dL (12.0-15.5); Mean Corp. HGB Concentration 32.5 g/dL (32.0-36.0); Mean Corpuscular Hemoglobin 27.7 pg (27.0-33.0); Mean Corpuscular Volume 85.3 fL (80-95); Mean Platelet Volume 12.6 fL (8.0-11.0); Platelet Count 291 x1000/uL (130-400); RBC 4.91 m/cumm (4.00-5.20); White Blood Cell Count 5.77 k/cumm (4.4-10.8)
[2018-12-11 19:16] LABS: Hemoglobin A1C 5.8 % (4.5-6.2)
[2018-12-11 19:18] LABS: ALT 18 U/L (12-78); AST 14 U/L (15-37); Albumin 4.2 g/dL (3.4-5.0); Alkaline Phosphatase 89 U/L (46-116); Anion Gap 13.3 mmol/L (3-11); BUN 9 mg/dL (7-18); Bilirubin, Total 0.2 mg/dL (0.2-1.0); CO2 23.7 mmol/L (21.0-32.0); CREATININE 0.77 mg/dL (0.55-1.02); Calcium 9.5 mg/dL (8.5-10.1); Chloride 103 mmol/L (98-107); Glucose 97 mg/dL (70-100); Potassium 3.9 mmol/L (3.5-5.1); Sodium 140 mmol/L (136-145); TSH (W/Ref FT4) 0.38 uIU/mL (0.358-3.74)
== END 2018-12-11 14:41 ==
LOC: NCHCN 14:21
PROVIDERS: PCP Nurse Practitioner Family; Visit Provider Nurse Practitioner Family
DX: R00.0 Tachycardia, unspecified (principal); E03.9 Hypothyroidism, unspecified; R73.09 Other abnormal glucose; R51 Headache
CPT/HCPCS: 80053; 85027; 83036; 84443

== ENCOUNTER 2018-12-16 16:02 | Emergency (ER) | payer MEDICAID, SELFPAY ==
[2018-12-16 16:11] VITALS: BP 114/58; PULSE 76; RESP 24; TEMP 36.7; O2SAT 100
[2018-12-16] MEDS: Normal Saline 1,000 ML 1000 ML IV ×2 (16:34→18:17)
[2018-12-16] MEDS: Ondansetron 4 MG/2 ML VIAL IVP (16:35)
--- NOTE | 2018-12-16 16:35 | NUR.NOTE ---
Nursing Note: pt resting in bed, no signs of distress. facial expression and body language relaxed
[2018-12-16 16:39] LABS: Abs Immature Grans 0.01 k/cumm (0.0-0.09); Absolute Basophil Count 0.05 k/cumm (0.0-0.2); Absolute Eosinophil Count 0.06 k/cumm (0.0-0.7); Absolute Lymphocyte Count 2.06 k/cumm (1.2-3.4); Absolute Monocyte Count 0.26 k/cumm (0.11-0.7); Absolute Neutrophil Count 3.98 k/cumm (1.2-6.7); Basophils % 0.8; Eosinophils % 0.9; HGB 13.3 g/dL (12.0-15.5); Immature Grans % 0.2; Lymphocytes % 32.1; Mean Corp. HGB Concentration 33.3 g/dL (32.0-36.0); Mean Corpuscular Hemoglobin 27.9 pg (27.0-33.0); Mean Platelet Volume 12.4 fL (8.0-11.0); Platelet Count 269 x1000/uL (130-400); RBC 4.76 m/cumm (4.00-5.20); RBC Distribution Width 12.8 % (11.7-14.6); White Blood Cell Count 6.42 k/cumm (4.4-10.8)
[2018-12-16 16:57] LABS: ALT 12 U/L (12-78); AST 8 U/L (15-37); Alkaline Phosphatase 80 U/L (46-116); BUN 8 mg/dL (7-18); Bilirubin, Total 0.1 mg/dL (0.2-1.0); CREATININE 0.66 mg/dL (0.55-1.02); Calcium 9.2 mg/dL (8.5-10.1); Chloride 104 mmol/L (98-107); Glucose 149 mg/dL (70-100); Magnesium 2.1 mg/dL (1.8-2.4); Potassium 4.3 mmol/L (3.5-5.1); Sodium 139 mmol/L (136-145); Troponin I < 0.05 ng/mL (0.00-0.06)
[2018-12-16] MEDS: Ketorolac 30 MG/ML VIAL IVP (17:10)
--- NOTE | 2018-12-16 17:44 | NUR.NOTE ---
Nursing Note: pt ambulated to and from bathroom without difficulty. steady gait noted.
[2018-12-16 17:58] LABS: Bilirubin Negative (Negative); Blood Negative (Negative); Clarity Clear (Clear); Glucose Negative (Negative); Ketones Trace mg/dL (Negative); Leukocyte Esterase Negative (Negative); Nitrite Negative (Negative); Specific Gravity 1.015 (1.005-1.025); Urobilinogen 0.2 EU/dL (Up TO 0.2)
--- NOTE | 2018-12-16 18:09 | DI.RAD_ITS ---
SYMPTOM/DIAGNOSIS; HIP PAIN PELVIS AND LEFT HIP: The hip joint spaces are well maintained. There is no evidence of fracture or dislocation. There is no justo-articular spurring. No lytic or blastic bony lesions seen. The bones appear normally mineralized. The SI joints and pubic symphysis are unremarkable. The sacrum is partially obscured by stool and bowel gas. IMPRESSION: Negative pelvis and left hip.
[2018-12-16 18:14] LABS: *AMPHETAMINES SCREEN URINE Negative (Negative); *BARBITURATES SCREEN URINE Negative (Negative); *BENZODIAZEPINES SCREEN URINE Negative (Negative); Cannabinoids THC Negative (Negative); Cocaine Screen,Urine Negative (Negative); METHADONE URINE SCREEN Negative (Negative); OPIATES URINE SCREEN POSITIVE (Negative); Tricyclic Antidepressants Negative (Negative)
--- NOTE | 2018-12-16 18:39 | DI.VRAD_ITS ---
EXAM: XR Left Hip with Pelvis when Performed EXAM DATE/TIME: 12/16/2018 6:12 PM CLINICAL HISTORY: 33 years old, female; Patient HX: Left hip pain x years, increasing pain. No recent trauma. TECHNIQUE: Imaging protocol: XR Left hip with pelvis when performed. Views: 2 or 3 views. COMPARISON: CR LEFT HIP COMPLETE \T\ AP PELVIS 05/19/2015 3:03 PM FINDINGS: Bones/joints: No recent fracture or dislocation is identified. Soft tissues: Normal. IMPRESSION: No recent fracture or dislocation is identified. Dictated and Authenticated by: Alcon Back MD. Ordering:ELISABETH Vasquez MD
--- NOTE | 2018-12-16 18:59 | NUR.NOTE ---
Nursing Note: pt resting in stretcher, no signs of distress. Facial expression and body language relaxed. Slow and even respirations noted. No episode of vomiting since admission to ED>
--- NOTE | 2018-12-16 19:04 | ED.GENADUL_ITS ---
Discharge Plan Disposition Patient Disposition: HOME Condition: Improving Discharge Details Chief Complaint: SOB Clinical Impression: Sciatica of left side, Chronic pain Primary Care Provider: Bartolo Landa ED Provider: Pedro Cedeño Home Meds and New Rx's Prescriptions: New diclofenac sodium 50 mg tablet,delayed release (DR/EC) 50 mg PO TID PRN (Reason: pain) Qty: 10 RF: 0 ondansetron 4 mg tablet,disintegrating 4 mg PO TID PRN (Reason: nausea and vomiting) Qty: 10 RF: 0 Continued venlafaxine [Effexor XR] 37.5 MG capsule,extended release 24hr 75 mg PO DAILY RF: 0 venlafaxine [Effexor XR] 37.5 MG capsule,extended release 24hr 150 mg PO DAILY RF: 0 pantoprazole 40 MG tablet,delayed release (DR/EC) 40 mg PO DAILY RF: 0 levothyroxine [Synthroid] 75 MCG tablet 75 mcg PO DAILY RF: 0 albuterol sulfate 8.5 GM HFA aerosol inhaler 2 puff Inhalation QID PRN PRNRF: 0 methylphenidate HCl [Ritalin] 20 MG tablet 20 mg PO TID RF: 0 metformin [Glucophage] 1,000 MG tablet 500 mg PO TID RF: 0 loratadine [Claritin Liqui-Gel] 10 MG capsule 1 tab PO DAILY RF: 0 ondansetron 4 mg tablet,disintegrating 4 mg PO TID-QID PRN (Reason: nausea and vomiting) Qty: 20 RF: 0 Discharge Instructions Instructions: Sciatica (ED), Piriformis Syndrome (ED) Additional Instructions: Please stretch her hip 4 times daily to see if this relieves some of your sympt oms. Otherwise take medications as prescribed and follow-up with your primary care provider and pain clinic as recommended by their office. Return to the emergency department for new or worsening symptoms otherwise advance your diet as tolerated and stay well-hydrated Referrals: Bartolo Landa, DIRECTOR MEDICAL WRITING [Primary Care Provider] - 1 week (as needed) Discharge Data Discharge Date/Time-TO BE ENTERED AT DEPARTURE: 12/16/18 19:36 Medical Decision Making Patient presenting the emergency department for chief complaint of nausea and vomiting. Patient states that this started around 2 AM and has been persistent throughout the day. Patient states that around the same time she woke up with significant left hip pain. Patient states chronic ongoing problems with her left hip and that she is being referred to the pain clinic for management of this. She does state that she does not tolerate pain well and does have nausea and vomiting secondary to pain. She states that what also made her come in tonight was that she was attempting to get out of the shower and had significant increase of discomfort along with a near syncopal episode where her leg almost gave out . Patient denies any loss of consciousness or head injury. Physical exam shows a soft nontender abdomen with normal active bowel sounds, normal cardiac and respiratory exam, patient does have significant lower lumbar pain with discomfort to the left buttock and left hip. Patient does have reproducible pain elicited with internal rotation of the hip. Plan to check labs and EKG given patient's near syncopal episode but more feel that this is secondary to pain response and chronic issues. Plan to give IV fluids, Zofran, and ketorolac pending results Review of labs show unremarkable CBC, CMP shows mildly elevated elevated anion gap, otherwise nondiagnostic CMP, negative troponin, urine is not overly concentrated with only mild ketones. Urine drug screen does show positive for opiates otherwise negative. Patient reassessed and states continued pain and discomfort now mostly in her hip. Due to this patient was ordered additional morphine and x-ray of her hip. Review of her illogical imaging shows no acute findings within the hip. Patient reassessed and states some improvement of nausea vomiting and states that pain is stable that she feels she is able to go home. Did inform patient that given that internal rotation of the left hip does seem to increase pain and discomfort she may have sciatica plus some piriformis syndrome may benefit from seeing pain clinic. She reports that she is already attempting to get in with them. Otherwise I feel that all of patient's symptoms are secondary to her poor pain response. Patient was prescribed diclofenac along with Zofran for her control of symptoms. Return precautions discussed. HPI General Mode of arrival: ambulatory . Date/Time Provider Initiated Documentation: 12/16/18 16:03 . Limitations to Documentation: no limitations . Information obtained by: patient and RN notes reviewed . History of Present Illness 33 year old F presents to the emergency department with the chief complaint of left hip pain, nausea, vomitting, described as severe and similar to prior episodes, with intensity rated at 8. Quality is described as sharp, and is localized to the left (hip). Patient extremity and distal. Patient started experiencing this hour(s) (14) and it has been constant. No relieving factors improve symptom(s), Patient did receive the following treatments prior to arrival, none Related Data Home Medications Medication Instructions Recorded Confirmed pantoprazole 40 mg PO DAILY 03/19/13 11/07/18 levothyroxine [Synthroid] 75 mcg PO DAILY 06/23/13 11/07/18 albuterol sulfate 2 puff INHALATION QID PRN PRN 08/31/14 11/07/18 venlafaxine [Effexor XR] 75 mg PO DAILY tab-cap 07/26/16 11/07/18 venlafaxine [Effexor XR] 150 mg PO DAILY tab-cap 07/26/16 11/07/18 loratadine [Claritin Liqui-Gel] 1 tab PO DAILY 03/18/17 11/07/18 metformin [Glucophage] 500 mg PO TID 03/18/17 11/07/18 methylphenidate HCl [Ritalin] 20 mg PO TID 03/18/17 11/07/18 ondansetron 4 mg PO TID-QID PRN #20 tab 10/21/18 11/07/18 diclofenac sodium 50 mg PO TID PRN #10 tab 12/16/18 ondansetron 4 mg PO TID PRN #10 tab 12/16/18 Previous Rx's Medication Instructions Recorded ondansetron 4 mg PO TID-QID PRN #20 tab 10/21/18 diclofenac sodium 50 mg PO TID PRN #10 tab 12/16/18 ondansetron 4 mg PO TID PRN #10 tab 12/16/18 Allergies Allergy/AdvReac Type Severity Reaction Status Date / Time Sulfa (Sulfonamide Allergy rash/vomiti Unverified 11/07/18 12:39 Antibiotics) ng ibuprofen AdvReac Psychosis Unverified 11/07/18 12:39 prednisone AdvReac flashes of Unverified 11/07/18 12:39 light/feels drunk General Stated Complaint: SOB TANA: 2 Review of Systems Constitutional Denies chills, Denies fever(s) and Reports malaise Cardiovascular Denies chest pain, Denies palpitations, Reports dyspnea (due to intense pain) and Denies dyspnea on exertion Respiratory Denies cough, Reports dyspnea (due to intense pain) and Denies dyspnea on exertion Gastrointestinal Denies abdominal pain, Denies diarrhea, Reports nausea and Reports vomiting Musculoskeletal Reports as per HPI, Reports back pain, Reports arthralgias, Denies numbness, Reports radiating pain into limb, Denies stiffness and Reports tingling Integumentary/Breasts Denies erythema and Denies rash Neurologic Denies numbness and Reports tingling Endocrine Denies palpitations [facility] Medical History deep vein thrombosis with complication Depression Impaired glucose tolerance Irritable colon Menorrhagia Positive urine drug screen Subclinical hypothyroidism Surgical History section Dilation and curettage (06/23/13) Hysterectomy, Laproscopic Ligation of fallopian tube (11/27/07) Sigmoidoscopy Family History Father Diabetes Heart disease Hyperlipidemia Grandmother Diabetes paternal uncle Mental disorder Social History Smoking/Tobacco Use Status: Never Alcohol Intake: never Drug use: Never Substance use type: does not use Do you feel safe at home: Yes Do you feel safe in your relationship?: Yes Additional Social history: unable to assess privately Exam Const General: cooperative, no acute distress, anxious and not ill appearing Orientation: alert, awake and oriented x3 Resp Effort & Inspection: normal respiratory effort, able to speak in complete sentences, not labored, no respiratory distress, no stridor and not tachypneic Auscultation: clear to auscultation bilaterally Cardio Palpation: normal PMI Rate: regular rate Rhythm: regular rhythm Heart Sounds: S1 normal, S2 normal, no click, no murmurs and no rubs GI Palpation: soft, no hepatosplenomegaly, not firm, no guarding, no hernias, no masses, no pulsatile masses, not rigid and nontender Auscultation: normal bowel sounds Back/Spine/Pelvis Thoracic/Lumbar Spine: straight leg raise negative bilaterally, No mass, pain with thoraco-lumbar ROM, paraspinal tenderness (lumbar), No thoracic spinal tenderness and lumbar spinal tenderness (difuse ) Pelvis: no pain with anterior-posterior compression, no pain with lateral compression, no buttock ecchymosis, buttock tenderness on the left and sciatic notch tenderness on the left Extrem General: normal capillary refill, normal gait and no limp Left lower extremity: hip/thigh Details: tenderness Location: of the hip Location: laterally and abnormal ROM Details: pain with passive ROM Details: with internal rotation; no swelling, no ecchymosis, no crepitus and no deformity Course Vital Signs Temperature 36.7 C 12/16/18 16:11 Pulse 76 12/16/18 16:11 Respiratory Rate 24 12/16/18 16:11 Blood Pressure 114/58 L 12/16/18 16:11 Pulse Oximetry 100 12/16/18 16:11 Temperature 36.7 C 12/16/18 16:11 Temperature Source Temporal Artery Scan 12/16/18 16:11 Pulse 76 12/16/18 16:11 Respiratory Rate 24 12/16/18 16:11 Respiratory Effort Non-Labored 12/16/18 16:41 Respiratory Pattern Normal 12/16/18 16:41 Blood Pressure 114/58 L 12/16/18 16:11 Pulse Oximetry 100 12/16/18 16:11 Oxygen Delivery Method Room Air 12/16/18 16:11 Oxygen Flow Rate 0 12/16/18 16:11 Pain Level 8 12/16/18 16:11 Lab/Test Results Lab/Test Results: Laboratory Tests Range/Units 12/16/18 12/16/18 12/16/18 16:30 16:30 17:32 WBC (4.4-10.8) k/cumm 6.42 RBC (4.00-5.20) m/cumm 4.76 Hgb (12.0-15.5) g/dL 13.3 Hct (36.0-46.0) % 40.0 MCV (80-95) fL 84.0 MCH (27.0-33.0) pg 27.9 MCHC (32.0-36.0) g/dL 33.3 RDW (11.7-14.6) % 12.8 Plt Count (130-400) x1000/uL 269 MPV (8.0-11.0) fL 12.4 H Immature Gran % 0.2 Neutrophils % 62.0 Lymphocytes % 32.1 Monocytes % 4.0 Eosinophils % 0.9 Basophils % 0.8 Absolute Neutrophils (1.2-6.7) k/cumm 3.98 Absolute Lymphocytes (1.2-3.4) k/cumm 2.06 Absolute Monocytes (0.11-0.7) k/cumm 0.26 Absolute Eosinophils (0.0-0.7) k/cumm 0.06 Absolute Basophils (0.0-0.2) k/cumm 0.05 Sodium (136-145) mmol/L 139 Potassium (3.5-5.1) mmol/L 4.3 Chloride (98-107) mmol/L 104 Carbon Dioxide (21.0-32.0) mmol/L 23.0 Anion Gap (3-11) mmol/L 12.0 H BUN (7-18) mg/dL 8 Creatinine (0.55-1.02) mg/dL 0.66 Estimated GFR/1.73 m2 (mL/min/1.73m2) >= 60.00 Glucose (70-100) mg/dL 149 H Calcium (8.5-10.1) mg/dL 9.2 Magnesium (1.8-2.4) mg/dL 2.1 Total Bilirubin (0.2-1.0) mg/dL 0.1 L AST (15-37) U/L 8 L ALT (12-78) U/L 12 Alkaline Phosphatase (46-116) U/L 80 Troponin I (0.00-0.06) ng/mL < 0.05 Total Protein (6.4-8.2) g/dL 8.0 Albumin (3.4-5.0) g/dL 4.0 Urine Color (Yellow) Yellow Urine Clarity (Clear) Clear Urine pH (5-8) 7.0 Ur Specific [place] (1.005-1.025) 1.015 Urine Protein (Negative) mg/dL Negative Urine Ketones (Negative) mg/dL Trace H Urine Blood (Negative) Negative Urine Nitrite (Negative) Negative Urine Bilirubin (Negative) Negative Urine Urobilinogen (Up TO 0.2) EU/dL 0.2 Ur Leukocyte Esterase (Negative) Negative Urine Glucose (Negative) mg/dL Negative Urine Opiates Screen (Negative) Urine Methadone Screen (Negative) Ur Barbiturates Screen (Negative) Ur Tricyclics Screen (Negative) Ur Amphetamines Screen (Negative) U Benzodiazepines Scrn (Negative) Urine Cocaine Screen (Negative) Ur THC Screen (Negative) Range/Units 12/16/18 17:32 WBC (4.4-10.8) k/cumm RBC (4.00-5.20) m/cumm Hgb (12.0-15.5) g/dL Hct (36.0-46.0) % MCV (80-95) fL MCH (27.0-33.0) pg MCHC (32.0-36.0) g/dL RDW (11.7-14.6) % Plt Count (130-400) x1000/uL MPV (8.0-11.0) fL Immature Gran % Neutrophils % Lymphocytes % Monocytes % Eosinophils % Basophils % Absolute Neutrophils (1.2-6.7) k/cumm Absolute Lymphocytes (1.2-3.4) k/cumm Absolute Monocytes (0.11-0.7) k/cumm Absolute Eosinophils (0.0-0.7) k/cumm Absolute Basophils (0.0-0.2) k/cumm Sodium (136-145) mmol/L Potassium (3.5-5.1) mmol/L Chloride (98-107) mmol/L Carbon Dioxide (21.0-32.0) mmol/L Anion Gap (3-11) mmol/L BUN (7-18) mg/dL Creatinine (0.55-1.02) mg/dL Estimated GFR/1.73 m2 (mL/min/1.73m2) Glucose (70-100) mg/dL Calcium (8.5-10.1) mg/dL Magnesium (1.8-2.4) mg/dL Total Bilirubin (0.2-1.0) mg/dL AST (15-37) U/L ALT (12-78) U/L Alkaline Phosphatase (46-116) U/L Troponin I (0.00-0.06) ng/mL Total Protein (6.4-8.2) g/dL Albumin (3.4-5.0) g/dL Urine Color (Yellow) Urine Clarity (Clear) Urine pH (5-8) Ur Specific [place] (1.005-1.025) Urine Protein (Negative) mg/dL Urine Ketones (Negative) mg/dL Urine Blood (Negative) Urine Nitrite (Negative) Urine Bilirubin (Negative) Urine Urobilinogen (Up TO 0.2) EU/dL Ur Leukocyte Esterase (Negative) Urine Glucose (Negative) mg/dL Urine Opiates Screen (Negative) Positive Urine Methadone Screen (Negative) Negative Ur Barbiturates Screen (Negative) Negative Ur Tricyclics Screen (Negative) Negative Ur Amphetamines Screen (Negative) Negative U Benzodiazepines Scrn (Negative) Negative Urine Cocaine Screen (Negative) Negative Ur THC Screen (Negative) Negative
[2018-12-16 19:15] VITALS: BP 113/56; PULSE 68; RESP 16; O2SAT 98
== END 2018-12-16 19:36 | disposition home or self-care (01) ==
PROVIDERS: Emergency Provider Nurse Practitioner Family; PCP Nurse Practitioner Family
DX: M54.32 Sciatica, left side (principal); G89.29 Other chronic pain; R11.2 Nausea with vomiting, unspecified
CPT/HCPCS: 36415; 80053; 80307; 96361; 96374; 96375; 99284; 73502; 81003; 83735; 84484; 85025; J1885; J2405

== ENCOUNTER 2019-03-25 16:27 | Outpatient (REF) | payer MEDICAID, SELFPAY ==
[2019-03-25 18:52] LABS: HCT 36.9 % (36.0-46.0); HGB 11.9 g/dL (12.0-15.5); Mean Corp. HGB Concentration 32.2 g/dL (32.0-36.0); Mean Corpuscular Hemoglobin 27.8 pg (27.0-33.0); Mean Corpuscular Volume 86.2 fL (80-95); Mean Platelet Volume 11.9 fL (8.0-11.0); Platelet Count 290 x1000/uL (130-400); RBC 4.28 m/cumm (4.00-5.20); RBC Distribution Width 13.1 % (11.7-14.6)
[2019-03-25 19:06] LABS: ALT 29 U/L (14-59); AST 63 U/L (15-37); Albumin 3.9 g/dL (3.4-5.0); Alkaline Phosphatase 97 U/L (46-116); Anion Gap 11.5 mmol/L (3-11); BUN 7 mg/dL (7-18); Bilirubin, Total 0.4 mg/dL (0.2-1.0); CO2 24.5 mmol/L (21.0-32.0); Calcium 8.6 mg/dL (8.5-10.1); Chloride 103 mmol/L (98-107); Glucose 122 mg/dL (70-100); Potassium 3.8 mmol/L (3.5-5.1); Sodium 139 mmol/L (136-145); TSH (W/Ref FT4) 1.54 uIU/mL (0.36-3.74); Total Protein 7.6 g/dL (6.4-8.2)
[2019-03-25 20:30] LABS: Hemoglobin A1C 5.6 % (4.5-6.2)
== END 2019-03-25 16:47 ==
LOC: NCHCN 16:27
PROVIDERS: PCP Nurse Practitioner Family; Visit Provider Nurse Practitioner Family
DX: E03.9 Hypothyroidism, unspecified (principal); R00.0 Tachycardia, unspecified; L03.039 Cellulitis of unspecified toe
CPT/HCPCS: 80053; 85027; 83036; 84443

== ENCOUNTER 2019-04-27 13:47 | Emergency (ER) | payer MEDICAID, SELFPAY ==
[2019-04-27] VITALS (26 sets, daily range): BP systolic 106–132; BP diastolic 70–89; PULSE 79–134; RESP 8–32; TEMP 36.9; O2SAT 98–100
[2019-04-27] MEDS: Normal Saline 1,000 ML 1000 ML IV ×2 (14:09→15:28)
--- NOTE | 2019-04-27 14:12 | ED.GENADUL_ITS ---
Discharge Plan Disposition Patient Disposition: HOME Condition: Improving Discharge Details Chief Complaint: Urinary Clinical Impression: Pyelonephritis Primary Care Provider: Bartolo Landa ED Provider: Cherri Casey Home Meds and New Rx's Prescriptions: New cephalexin [Keflex] 500 mg capsule 500 mg PO BID 14 Days Qty: 28 RF: 0 tramadol 50 mg tablet 50 mg PO Q6H PRN (Reason: pain) Qty: 7 RF: 0 ondansetron HCl [Zofran] 4 mg tablet 4 mg PO Q8H PRN (Reason: nausea and vomiting) Qty: 7 RF: 0 Continued venlafaxine [Effexor XR] 37.5 MG capsule,extended release 24hr 75 mg PO DAILY RF: 0 venlafaxine [Effexor XR] 37.5 MG capsule,extended release 24hr 150 mg PO DAILY RF: 0 pantoprazole 40 MG tablet,delayed release (DR/EC) 40 mg PO DAILY RF: 0 levothyroxine [Synthroid] 75 MCG tablet 75 mcg PO DAILY RF: 0 albuterol sulfate 8.5 GM HFA aerosol inhaler 2 puff Inhalation QID PRN PRNRF: 0 methylphenidate HCl [Ritalin] 20 MG tablet 20 mg PO TID RF: 0 metformin [Glucophage] 1,000 MG tablet 500 mg PO TID RF: 0 loratadine [Claritin Liqui-Gel] 10 MG capsule 1 tab PO DAILY RF: 0 ondansetron 4 mg tablet,disintegrating 4 mg PO TID-QID PRN (Reason: nausea and vomiting) Qty: 20 RF: 0 diclofenac sodium 50 mg tablet,delayed release (DR/EC) 50 mg PO TID PRN (Reason: pain) Qty: 10 RF: 0 Discharge Instructions Instructions: Urinary Tract Infection in Women (ED), Kidney Infection (ED) Additional Instructions: Drink plenty of fluids and get plenty of rest. Alternate Tylenol and Motrin as needed and directed for pain. Take the tramadol for pain not relieved with Tylenol or Motrin. Take the antibiotics until finished. Take the Zofran as needed directed for nausea and vomiting. Follow-up with your primary care doctor within the next week for reevaluation. Return immediately to the emergency department if you develop any worsening or new concerning symptoms. Discharge Data Discharge Date/Time-TO BE ENTERED AT DEPARTURE: 04/27/19 18:15 Discharge Physician: Cherri Casey Medical Decision Making 1345 -- 33-year-old female with a history of hysterectomy, kidney stones and urosepsis with urinary frequency and urgency, vomiting and left flank pain for the past few days. She also states she vomited once and became short of breath and was concerned about aspiration. Patient appears uncomfortable and ill-appearing. She is diaphoretic. Heart rate 130s. Temp 98.4. BP 120/74. Abdomen soft and nontender. No CVA tenderness. Differential diagnosis includes UTI, pyelonephritis, sepsis, kidney stone, dehydration, electrolyte abnormality. Will place an IV, bolus IV fluids, screening labs, urinalysis as well as chest x-ray and CT abdomen and pelvis without contrast. 1615 -- labs and imaging reviewed. Normal white blood cell count. Lactate 1.5. Urinalysis notes 3-5 WBCs and moderate bacteria but negative leukocyte esterase and nitrate. Chest x-ray and CT negative. 1620 -- pt reassessed -- patient admits to relief of nausea but still complaining of left-sided lower back pain. Will place a Lidoderm patch and give a dose of morphine and reassess. 1700 -- patient reassessed -pain improved. Will attempt p.o. challenge and reassess. Offered admission but pt states she would rather go home. 1750 -- pain returning - pt offered admission again but she declines. She was given a dose of tramadol and Zofran and pain improving. She was able to drink fluids and no vomiting. We will send home with a prescription for Keflex for what appears to be pyelonephritis. Will also send with a small prescription of tramadol for pain as patient requested something stronger than Motrin or Tylenol. She was also given a prescription for Zofran. She is advised to follow-up with her primary care doctor for reevaluation and to return at anytime if worse. Medical Records Medical records reviewed: Yes I reviewed the patient's medical records. Imaging Data Radiologic Study: Radiologist's impression: XR CHEST 2V PA LATERAL INDICATION: shortness of breath after vomiting, r/o aspiration. COMPARISON: No exams were available for comparison TECHNIQUE: 2D digital imaging was performed. FINDINGS: The heart size and pulmonary vasculature are within normal limits. The lungs are clear. No pleural effusion or pneumothorax is identified. There is a pectus excavatum deformity. The bones are intact. IMPRESSION: No acute pulmonary process. CT ABDOMEN PELVIS WO CLINICAL HISTORY: L flank pain, n/v, urinary urgency, r/o stone/pyelo TECHNIQUE: Imaging Protocol: Axial computed tomography images with coronal and sagittal reformatted images were created and reviewed. COMPARISON: ABD/PELVIS WO W CONTRAST from 05/31/2016 FINDINGS: ABDOMEN: Lung Bases: Normal where visualized. Liver: Normal density. No measurable mass. Gallbladder and biliary tract: No radiodense calculus or dilation. Pancreas: Normal density, no abnormal calcifications or inflammatory process. Spleen: Normal. Kidneys: Normal size, contour and axis. No radiodense stones or obstructive uropathy. No masses seen. Adrenal glands: No masses seen. Lymph nodes: Within normal limits. Abdominal Aorta: Abdominal portion non-dilated. PELVIS: Bladder: Symmetric distention, no gross wall thickening. Bowel: No obstruction or bowel wall thickening. Peritoneal cavity: No ascites, collection or mesenteric inflammatory response. Reproductive organs: Within normal limits. Bones: Within normal limits. IMPRESSION: No evidence of nephrolithiasis or obstructive uropathy. No evidence of an acute abdomen. The findings were discussed with the Emergency Department on the date of the examination. Lab Data Lab results reviewed: Yes I reviewed the patient's lab results. Labs: 04/27/19 17:35 Urine - Clean Catch Urine Culture - Final Gram Positive [place],Mixed 04/27/19 14:47 Blood Blood Culture - Preliminary NO GROWTH 24 HOURS Laboratory Tests Range/Units 04/27/19 04/27/19 04/27/19 14:00 14:07 14:07 WBC (4.4-10.8) k/cumm 7.22 RBC (4.00-5.20) m/cumm 4.89 Hgb (12.0-15.5) g/dL 13.7 Hct (36.0-46.0) % 41.7 MCV (80-95) fL 85.3 MCH (27.0-33.0) pg 28.0 MCHC (32.0-36.0) g/dL 32.9 RDW (11.7-14.6) % 13.1 Plt Count (130-400) x1000/uL 302 MPV (8.0-11.0) fL 11.4 H Immature Gran % 0.1 Neutrophils % 74.8 Lymphocytes % 20.1 Monocytes % 3.7 Eosinophils % 0.6 Basophils % 0.7 Absolute Neutrophils (1.2-6.7) k/cumm 5.40 Absolute Lymphocytes (1.2-3.4) k/cumm 1.45 Absolute Monocytes (0.11-0.7) k/cumm 0.27 Absolute Eosinophils (0.0-0.7) k/cumm 0.04 Absolute Basophils (0.0-0.2) k/cumm 0.05 D-Dimer (<500) ng/mlFEU Sodium (136-145) mmol/L 139 Potassium (3.5-5.1) mmol/L 3.5 Chloride (98-107) mmol/L 104 Carbon Dioxide (21.0-32.0) mmol/L 20.6 L Anion Gap (3-11) mmol/L 14.4 H BUN (7-18) mg/dL 13 Creatinine (0.55-1.02) mg/dL 0.77 Estimated GFR/1.73 m2 (mL/min/1.73m2) >= 60.00 Glucose (70-100) mg/dL 143 H Lactate (0.6-1.4) mmol/L Calcium (8.5-10.1) mg/dL 9.3 Total Bilirubin (0.2-1.0) mg/dL 0.3 AST (15-37) U/L 15 ALT (14-59) U/L 20 Alkaline Phosphatase (46-116) U/L 98 Total Protein (6.4-8.2) g/dL 8.9 H Albumin (3.4-5.0) g/dL 4.3 Lipase (73-393) U/L 73 Urine Color (Yellow) Yellow Urine Clarity (Clear) Clear Urine pH (5-8) 6.0 Ur Specific [place] (1.005-1.025) >= 1.030 H Urine Protein (Negative) mg/dL 30 H Urine Ketones (Negative) mg/dL Trace H Urine Blood (Negative) Negative Urine Nitrite (Negative) Negative Urine Bilirubin (Negative) Negative Urine Urobilinogen (Up TO 0.2) EU/dL 0.2 Ur Leukocyte Esterase (Negative) Negative Urine RBC (0-2) HPF 3-5 H Urine WBC (0-5) HPF 3-5 Ur Epithelial Cells (Negative) HPF Moderate Urine Crystals (Negative) HPF Negative Urine Bacteria (Negative) HPF Moderate Urine Casts (Negative) LPF Negative Urine Mucus (Negative) Moderate Urine Other (Negative) Few renal Ur Culture Indicated? No/sq. contamination Urine Glucose (Negative) mg/dL Negative Range/Units 04/27/19 04/27/19 14:47 14:59 WBC (4.4-10.8) k/cumm RBC (4.00-5.20) m/cumm Hgb (12.0-15.5) g/dL Hct (36.0-46.0) % MCV (80-95) fL MCH (27.0-33.0) pg MCHC (32.0-36.0) g/dL RDW (11.7-14.6) % Plt Count (130-400) x1000/uL MPV (8.0-11.0) fL Immature Gran % Neutrophils % Lymphocytes % Monocytes % Eosinophils % Basophils % Absolute Neutrophils (1.2-6.7) k/cumm Absolute Lymphocytes (1.2-3.4) k/cumm Absolute Monocytes (0.11-0.7) k/cumm Absolute Eosinophils (0.0-0.7) k/cumm Absolute Basophils (0.0-0.2) k/cumm D-Dimer (<500) ng/mlFEU 284 Sodium (136-145) mmol/L Potassium (3.5-5.1) mmol/L Chloride (98-107) mmol/L Carbon Dioxide (21.0-32.0) mmol/L Anion Gap (3-11) mmol/L BUN (7-18) mg/dL Creatinine (0.55-1.02) mg/dL Estimated GFR/1.73 m2 (mL/min/1.73m2) Glucose (70-100) mg/dL Lactate (0.6-1.4) mmol/L 1.5 H Calcium (8.5-10.1) mg/dL Total Bilirubin (0.2-1.0) mg/dL AST (15-37) U/L ALT (14-59) U/L Alkaline Phosphatase (46-116) U/L Total Protein (6.4-8.2) g/dL Albumin (3.4-5.0) g/dL Lipase (73-393) U/L Urine Color (Yellow) Urine Clarity (Clear) Urine pH (5-8) Ur Specific [place] (1.005-1.025) Urine Protein (Negative) mg/dL Urine Ketones (Negative) mg/dL Urine Blood (Negative) Urine Nitrite (Negative) Urine Bilirubin (Negative) Urine Urobilinogen (Up TO 0.2) EU/dL Ur Leukocyte Esterase (Negative) Urine RBC (0-2) HPF Urine WBC (0-5) HPF Ur Epithelial Cells (Negative) HPF Urine Crystals (Negative) HPF Urine Bacteria (Negative) HPF Urine Casts (Negative) LPF Urine Mucus (Negative) Urine Other (Negative) Ur Culture Indicated? Urine Glucose (Negative) mg/dL HPI General Mode of arrival: ambulatory . Date/Time Provider Initiated Documentation: 04/27/19 13:59 . Limitations to Documentation: no limitations . Information obtained by: patient . HPI Narrative: Pt is a 33yo F who presents to the ED w/ a c/o urinary frequency and urgency for the past few days and vomiting over the past 2 days. She states she has a history of urosepsis and kidney stones and states she became concerned about this today when she vomited and then became significantly short of breath so she was concerned that she swallowed her vomit. She also admits to a fever of 102 recently. She denies any chest pain, abdominal pain, hematuria. Related Data Home Medications Medication Instructions Recorded Confirmed pantoprazole 40 mg PO DAILY 03/19/13 11/07/18 levothyroxine [Synthroid] 75 mcg PO DAILY 06/23/13 11/07/18 albuterol sulfate 2 puff INHALATION QID PRN PRN 08/31/14 11/07/18 venlafaxine [Effexor XR] 75 mg PO DAILY tab-cap 07/26/16 11/07/18 venlafaxine [Effexor XR] 150 mg PO DAILY tab-cap 07/26/16 11/07/18 loratadine [Claritin Liqui-Gel] 1 tab PO DAILY 03/18/17 11/07/18 metformin [Glucophage] 500 mg PO TID 03/18/17 11/07/18 methylphenidate HCl [Ritalin] 20 mg PO TID 03/18/17 11/07/18 ondansetron 4 mg PO TID-QID PRN #20 tab 10/21/18 11/07/18 diclofenac sodium 50 mg PO TID PRN #10 tab 12/16/18 cephalexin [Keflex] 500 mg PO BID 14 Days #28 cap 04/27/19 ondansetron HCl [Zofran] 4 mg PO Q8H PRN #7 tab 04/27/19 tramadol 50 mg PO Q6H PRN #7 tab 04/27/19 Previous Rx's Medication Instructions Recorded ondansetron 4 mg PO TID-QID PRN #20 tab 10/21/18 diclofenac sodium 50 mg PO TID PRN #10 tab 12/16/18 cephalexin [Keflex] 500 mg PO BID 14 Days #28 cap 04/27/19 ondansetron HCl [Zofran] 4 mg PO Q8H PRN #7 tab 04/27/19 tramadol 50 mg PO Q6H PRN #7 tab 04/27/19 Allergies Allergy/AdvReac Type Severity Reaction Status Date / Time Sulfa (Sulfonamide Allergy rash/vomiti Unverified 11/07/18 12:39 Antibiotics) ng ibuprofen AdvReac Psychosis Unverified 11/07/18 12:39 prednisone AdvReac flashes of Unverified 11/07/18 12:39 light/feels drunk General Stated Complaint: Urinary TANA: 3 Review of Systems All systems reviewed & are unremarkable except as noted in HPI and below Constitutional Constitutional: Reports as per HPI, Denies chills and Denies fever(s) Eyes Eyes: Denies blurry vision ENT Ears, Nose, Mouth, and Throat: Denies dizziness, Denies sore throat and Denies throat swelling Cardiovascular Cardiovascular: Denies chest pain and Denies dyspnea Respiratory Respiratory: Denies cough and Denies dyspnea Gastrointestinal Gastrointestinal: Denies abdominal pain, Denies diarrhea, Reports nausea and Denies vomiting Genitourinary Genitourinary: Denies hematuria, Reports urinary frequency, Denies dysuria, Reports flank pain and Reports urinary urgency Musculoskeletal Musculoskeletal: Denies back pain and Denies numbness Integumentary/Breasts Skin/Breast: Denies lesions and Denies rash Neurologic Neurologic: Denies dizziness, Denies focal weakness and Denies numbness Allergic/Immunologic Allergic/Immunologic: Denies throat swelling PFSH Medical History deep vein thrombosis with complication Depression Impaired glucose tolerance during . HgbA1c have been normal. Irritable colon Menorrhagia 12/2012 continued bleeding after PP endometritis. No response to abx/Norethindrone. Nl imaging studies. 06/23/13 hysteroscopy, D+C and Mirena IUD insertion. 11/2013 Pt had laparotomy for supracervical [place] [facility] [place] Positive urine drug screen 03/19/16 for Codeine and Morphine at time of admission for gastroenteritis. Subclinical hypothyroidism during 3rd . Surgical History section 08/06/2006 PCD arrest of descent 11/27/2007 RCD with BTL 11/12/2012 Repeat CD at term [facility] [place]. Uterine atony immediately post op Office EMBx 01/11/13 @ [facility] [place] c/w chronic endometritis. 11/13 Admitted to [facility] [place] with fever and pelvic pain s/p IV abx x3day Dilation and curettage (06/23/13) diagnostic hysteroscopy with insertion of Mirena IUD. Benign pathology. No endometritis or adenomyosis Hysterectomy, Laproscopic November 2013 H converted to supracervical hysterectomy at [facility] [place]. Ligation of fallopian tube (11/27/07) RCD with bilateral fimbriectomy. Sigmoidoscopy Family History Father Diabetes Heart disease father 50yo from heart failure. Hyperlipidemia Grandmother Diabetes paternal uncle Mental disorder drug use and eventually suicide Social History Smoking/Tobacco Use Status: Never Alcohol Intake: current Alcohol Intake frequency: a few times a month Alcohol type: wine Drug use: Never Substance use type: does not use Do you feel safe at home: Yes Do you feel safe in your relationship?: Yes Exam Const General: cooperative, uncomfortable, no acute distress, diaphoretic and ill appearing acutely Orientation: alert, awake and oriented x3 HENMT Head: normal to inspection Face and sinus: normal facial exam Eyes General: appearance normal, both eyes and all related structures Pupils: PERRL EOM: EOM intact bilaterally Neck Neck: normal visual inspection and No submandibular swelling Lymphatic: no lymphadenopathy noted Chest Chest: normal inspection of the chest and no tenderness Resp Effort & Inspection: normal respiratory effort and able to speak in complete sentences Auscultation: clear to auscultation bilaterally Cardio Rate: regular rate Rhythm: regular rhythm GI Inspection: normal to inspection Palpation: soft, not firm, not rigid and nontender Auscultation: normal bowel sounds Back/Spine/Pelvis Back: No no CVA tenderness Thoracic/Lumbar Spine: thoracic and lumbar spine normal to inspection Skin General skin exam: no rashes or lesions noted Neuro General: alert, awake and oriented x3 Cognition: normal cognition Speech: speech normal Motor: muscle tone normal throughout Sensory Exam: no sensory deficits noted Extrem General: normal to inspection, full ROM, normal capillary refill, no calf tenderness bilaterally and no edema Psych Appearance: grossly normal Mental Status: mental status grossly normal Speech and Movement: speech and movement normal Affect: normal affect Course Vital Signs Vital signs: Vital Signs Temperature 98.4 F 04/27/19 13:52 Pulse 134 H 04/27/19 13:52 Respiratory Rate 28 H 04/27/19 13:52 Blood Pressure 120/74 04/27/19 13:52 Pulse Oximetry 100 04/27/19 13:52 Temperature 98.4 F 04/27/19 13:52 Temperature Source Temporal Artery Scan 04/27/19 13:52 Pulse 134 H 04/27/19 13:52 Respiratory Rate 28 H 04/27/19 13:52 Respiratory Effort Non-Labored 04/27/19 13:52 Blood Pressure 120/74 04/27/19 13:52 Pulse Oximetry 100 04/27/19 13:52 Oxygen Delivery Method Room Air 04/27/19 13:52 Oxygen Flow Rate 0 04/27/19 13:52
[2019-04-27 14:15] LABS: Abs Immature Grans 0.01 k/cumm (0.0-0.09); Absolute Basophil Count 0.05 k/cumm (0.0-0.2); Absolute Eosinophil Count 0.04 k/cumm (0.0-0.7); Absolute Lymphocyte Count 1.45 k/cumm (1.2-3.4); Absolute Monocyte Count 0.27 k/cumm (0.11-0.7); Basophils % 0.7; Eosinophils % 0.6; HCT 41.7 % (36.0-46.0); HGB 13.7 g/dL (12.0-15.5); Immature Grans % 0.1; Lymphocytes % 20.1; Mean Corp. HGB Concentration 32.9 g/dL (32.0-36.0); Mean Corpuscular Volume 85.3 fL (80-95); Mean Platelet Volume 11.4 fL (8.0-11.0); Monocytes % 3.7; Neutrophils % 74.8; Platelet Count 302 x1000/uL (130-400); RBC 4.89 m/cumm (4.00-5.20); RBC Distribution Width 13.1 % (11.7-14.6); White Blood Cell Count 7.22 k/cumm (4.4-10.8)
[2019-04-27 14:17] LABS: Bilirubin Negative (Negative); Blood Negative (Negative); Clarity Clear (Clear); Glucose Negative (Negative); Ketones Trace mg/dL (Negative); Leukocyte Esterase Negative (Negative); Nitrite Negative (Negative); Specific Gravity >= 1.030 (1.005-1.025); Urobilinogen 0.2 EU/dL (Up TO 0.2)
--- NOTE | 2019-04-27 14:27 | DI.CT_ITS ---
EXAM: CT ABDOMEN PELVIS WO CLINICAL HISTORY: L flank pain, n/v, urinary urgency, r/o stone/pyelo TECHNIQUE: Imaging Protocol: Axial computed tomography images with coronal and sagittal reformatted images were created and reviewed. COMPARISON: ABD/PELVIS WO W CONTRAST from 05/31/2016 FINDINGS: ABDOMEN: Lung Bases: Normal where visualized. Liver: Normal density. No measurable mass. Gallbladder and biliary tract: No radiodense calculus or dilation. Pancreas: Normal density, no abnormal calcifications or inflammatory process. Spleen: Normal. Kidneys: Normal size, contour and axis. No radiodense stones or obstructive uropathy. No masses seen. Adrenal glands: No masses seen. Lymph nodes: Within normal limits. Abdominal Aorta: Abdominal portion non-dilated. PELVIS: Bladder: Symmetric distention, no gross wall thickening. Bowel: No obstruction or bowel wall thickening. Peritoneal cavity: No ascites, collection or mesenteric inflammatory response. Reproductive organs: Within normal limits. Bones: Within normal limits. IMPRESSION: No evidence of nephrolithiasis or obstructive uropathy. No evidence of an acute abdomen. The findings were discussed with the Emergency Department on the date of the examination. DATA REPOSITORY: All CT scans at this facility are submitted to the National Radiology Data Registry (NRDR) Dose Index Registry (DIR) with the [employer] (A[employer]). RADIATION OPTIMIZATION: All CT scans at this facility use at least one of these dose optimization te chniques: automated exposure control; mA and/or kV adjustment per patient size (includes targeted exa ms where dose is matched to clinical indication); or iterative reconstruction.
[2019-04-27 14:28] LABS: Bacteria Moderate HPF (Negative); C & S Indicated? No/Sq. Contamination; Casts Negative LPF (Negative); Crystals Negative HPF (Negative); Epithelial Cells Moderate HPF (Negative); Mucus Moderate (Negative); Other Cells Few Renal (Negative)
--- NOTE | 2019-04-27 14:31 | DI.RAD_ITS ---
EXAM: XR CHEST 2V PA LATERAL INDICATION: shortness of breath after vomiting, r/o aspiration. COMPARISON: No exams were available for comparison TECHNIQUE: 2D digital imaging was performed. FINDINGS: The heart size and pulmonary vasculature are within normal limits. The lungs are clear. No pleural effusion or pneumothorax is identified. There is a pectus excavatum deformity. The bones are intact. IMPRESSION: No acute pulmonary process.
[2019-04-27 14:39] LABS: ALT 20 U/L (14-59); AST 15 U/L (15-37); Albumin 4.3 g/dL (3.4-5.0); Alkaline Phosphatase 98 U/L (46-116); Anion Gap 14.4 mmol/L (3-11); BUN 13 mg/dL (7-18); Bilirubin, Total 0.3 mg/dL (0.2-1.0); CO2 20.6 mmol/L (21.0-32.0); CREATININE 0.77 mg/dL (0.55-1.02); Calcium 9.3 mg/dL (8.5-10.1); Chloride 104 mmol/L (98-107); Glucose 143 mg/dL (70-100); Lipase 73 U/L (73-393); Potassium 3.5 mmol/L (3.5-5.1); Sodium 139 mmol/L (136-145); Total Protein 8.9 g/dL (6.4-8.2)
[2019-04-27 14:54] LABS: Lactate 1.5 mmol/L (0.6-1.4)
--- NOTE | 2019-04-27 14:56 | NUR.NOTE ---
Nursing Note: placed on cardiac monitoring.
[2019-04-27] MEDS: Ketorolac 30 MG/ML VIAL (15:27)
[2019-04-27] MEDS: Ondansetron 4 MG/2 ML VIAL IVP (16:08)
[2019-04-27] MEDS: Lidocaine 5% Patch 1 PATCH TP (16:24)
[2019-04-27] MEDS: cefTRIAXone 1 GM/50 ML BAG IVPB (16:39)
[2019-04-27 17:10] LABS: D-Dimer 284 ng/mlFEU (<500)
[2019-04-27] MEDS: traMADol 50 MG TAB PO (18:02)
[2019-04-27] MEDS: Ondansetron O.D.T. 4 MG TABEF PO (18:02)
== END 2019-04-27 18:15 | disposition home or self-care (01) ==
PROVIDERS: Emergency Provider Physician Assistant; PCP Nurse Practitioner Family
DX: N10 Acute pyelonephritis (principal); R06.02 Shortness of breath
CPT/HCPCS: 36415; 80053; 83690; 87040; 96361; 96365; 96375; 99284; 71046; 74176; 81003; 81015; 83605; 85025; 85379; 87086; J0696; J1885; J2405

== ENCOUNTER 2019-08-11 15:03 | Outpatient (REF) | payer MEDICAID, SELFPAY | END 2019-08-11 15:23 | LOC: NCHCN 15:03 | PROVIDERS: PCP Nurse Practitioner Family; Visit Provider Nurse Practitioner Family | DX: R39.89 Other symptoms and signs involving the genitourinary system (principal) | CPT/HCPCS: 87086 ==

== ENCOUNTER 2019-08-13 19:34 | Inpatient (IN) | payer MEDICAID, SELFPAY ==
[2019-08-13] VITALS (33 sets, daily range): BP systolic 97–141; BP diastolic 48–83; PULSE 83–136; RESP 10–36; TEMP 37.9; O2SAT 94–100
[2019-08-13 20:19] LABS: Lactate 1.6 mmol/L (0.6-1.4)
[2019-08-13] MEDS: DOXYCYCLINE 100 MG in Normal Saline 100 ML IVPB (20:19)
[2019-08-13 20:20] LABS: Abs Immature Grans 0.01 k/cumm (0.0-0.09); Absolute Basophil Count 0.04 k/cumm (0.0-0.2); Absolute Eosinophil Count 0.12 k/cumm (0.0-0.7); Absolute Lymphocyte Count 2.09 k/cumm (1.2-3.4); Absolute Monocyte Count 0.64 k/cumm (0.11-0.7); Absolute Neutrophil Count 2.44 k/cumm (1.2-6.7); Basophils % 0.7; Eosinophils % 2.2; HCT 38.6 % (36.0-46.0); Immature Grans % 0.2 %; Lymphocytes % 39.1; Mean Corp. HGB Concentration 33.7 g/dL (32.0-36.0); Mean Corpuscular Volume 86.2 fL (80-95); Mean Platelet Volume 11.5 fL (8.0-11.0); Neutrophils % 45.8; Platelet Count 254 x1000/uL (130-400); RBC 4.48 m/cumm (4.00-5.20); RBC Distribution Width 13.5 % (11.7-14.6); White Blood Cell Count 5.34 k/cumm (4.4-10.8)
--- NOTE | 2019-08-13 20:25 | DI.RAD_ITS ---
EXAM: XR PORTABLE CHEST AP CLINICAL HISTORY: septic, r/o pneumonia. TECHNIQUE: 2D digital imaging was performed. COMPARISON: No exams were available for comparison FINDINGS: LUNGS: Clear. No pleural abnormality seen. HEART: Normal. MEDIASTINUM: Normal. OTHER FINDINGS: None. IMPRESSION: No acute pulmonary findings. DATA REPOSITORY: RADIATION DOSE DELIVERED:
[2019-08-13] MEDS: Normal Saline 1,000 ML 1000 ML IV ×2 (20:26→21:38)
[2019-08-13 20:44] LABS: PTT Activated 22.3 sec (21.0-31.4); Prothrombin Time 10.2 sec (9.3-11.0)
--- NOTE | 2019-08-13 20:46 | W.ED.GENAD ---
Discharge Plan Disposition Patient Disposition: [facility] IN[facility]IENT Condition: Good Discharge Details Chief Complaint: Palpitatns Clinical Impression: Sepsis, Pyelonephritis, Acute hypokalemia, Acute flank pain Primary Care Provider: Bartolo Landa ED Provider: Joni Escudero Home Meds and New Rx's Prescriptions: No Action venlafaxine [Effexor XR] 37.5 MG capsule,extended release 24hr 75 mg PO DAILY RF: 0 venlafaxine [Effexor XR] 37.5 MG capsule,extended release 24hr 150 mg PO DAILY RF: 0 pantoprazole 40 MG tablet,delayed release (DR/EC) 40 mg PO DAILY RF: 0 levothyroxine [Synthroid] 75 MCG tablet 75 mcg PO DAILY RF: 0 albuterol sulfate 8.5 GM HFA aerosol inhaler 2 puff Inhalation QID PRN PRNRF: 0 methylphenidate HCl [Ritalin] 20 MG tablet 20 mg PO TID RF: 0 metformin [Glucophage] 1,000 MG tablet 500 mg PO TID RF: 0 loratadine [Claritin Liqui-Gel] 10 MG capsule 1 tab PO DAILY RF: 0 ondansetron 4 mg tablet,disintegrating 4 mg PO TID-QID PRN (Reason: nausea and vomiting) Qty: 20 RF: 0 methadone 40 mg Tablet,Soluble 80 mg PO RF: 0 diclofenac sodium 50 mg tablet,delayed release (DR/EC) 50 mg PO TID PRN (Reason: pain) Qty: 10 RF: 0 Medical Decision Making This is a 33-year-old female with a past medical history of urosepsis, type 2 diabetes, DVT x3, Kimberly-Danlos syndrome, fibromyalgia, total hysterectomy, who presents today for evaluation of fever, chills, sore throat, fatigue and shortness of breath. Patient had dental procedure performed 3-1/2 days ago, and then 2 days ago she had mild fatigue and sore throat with mild fever. She denied any urinary symptoms, she is her PCP and was started on she believes was cipro. Since then she has become notably short of breath, felt palpitations, he has been feeling notably worse. She has had continued fever at home, not amendable to NSAIDs. She denies any chest pain, tearing or ripping sensation. She does have history of 3 DVTs in the past, they were associated with . She is on no anticoagulants. She denies any recent long trips but she did have a recent dental procedure. Patient does admit to feeling like this in the past when she was uroseptic, she denies any other complaints at this time. She denies any IV or illicit drug use, headache or neck pain. She does admit to mild low back pain, she does admit to a few episodes of vomiting as well today but denies any abdominal pain. Physical exam demonstrates no significant abnormalities. No signs of a surgical abdomen. Bedside limited cardiac ultrasound shows no evidence of large fungating lesion or thrombus that I can appreciate at this time. No signs of significant right heart strain. Differential is highest for bacteremia secondary to recent dental infection, urosepsis, influenza. We will rehydrate, monitor closely and reassess. Broad-spectrum antibiotics will be started this patient does demonstrate evidence of notable sepsis. Antibiotics to be used will be vancomycin, doxycycline and aztreonam secondary to allergies. 10:08 PM Influenza testing negative, laboratory work-up shows normal white count, normal procalcitonin, patient still demonstrates fever. We have discussed Toradol, and she has tolerated Toradol in the past per the patient, will give this. D-dimer is negative, symptoms unlikely for PE. Chest x-ray negative for acute process per virtual radiology. Lactate minimally elevated at 1.6. Urinalysis shows leuk esterase present, 20-50 WBCs, influenza testing negative. Urine is not totally clean, we will attempt a repeat urinalysis however with the patient's flank pain, and her symptoms identical to breast urosepsis episode, I feel this is likely the source. Repeat abdominal exam continues to demonstrate no reproducible abdominal tenderness, no signs of an acute surgical abdomen. No indication for radiographic abdominal imaging. RBCs negative on UA, and inconsistent with stone. Patient's tachycardia has improved, however she is still mildly tachycardic in the low 100s after additional fluid bolus. We will give another liter of normal saline. With the patient's evidence of urosepsis, I do feel that she would benefit from inpatient admission for continued IV antibiotics. Will discuss case with hospitalist for admission. Of note differential still does include bacteremia secondary to recent dental infection. 11 PM Case was discussed with hospitalist Dr. Cherry. He agrees with assessment and plan. I have extensively reviewed the treatment plan with the patient. I have addressed all patient concerns at this time. I have also discussed the plan with the admitting physician and they agree with the current assessment and plan and have agreed to assume responsibility for the patient. All parties demonstrate verbal understanding and agreement with our assessment and plan at this time. Candidate vein just proximal to the right AC joint was examined with linear array probe - confirmed collapsibility, lack of pulsatility, and proper anatomic location. Using aseptic technique, IV catheter inserted with flash of blood noted, flow of venous blood confirmed. Flushes easily and without pain. No hematoma or complications noted. IV secured. Patient tolerated well. EKG 19: 52 Rate 128, QTc 464, QRS 94, sinus tachycardia, no significant ST elevations or depressions, minimal T wave flattening in lead III, Q wave in lead III. Terminal S wave unremarkable in lead I. No evidence of STEMI. EKG from 12/16/2018 demonstrates very similar findings. FINDINGS: Lungs: No consolidation. Pleural space: No significant pleural effusion. No pneumothorax. Heart/Mediastinum: No cardiomegaly. Bones/joints: No acute fracture. IMPRESSION: Negative portable chest. Thank you for allowing us to participate in the care of your patient. Dictated and Authenticated by: Demetra Pugh MD 08/13/2019 8:49 PM Eastern Time ([place] & [place]) HPI General Date/Time Provider Initiated Documentation: 08/13/19 19:37. HPI Narrative: This is a 33-year-old female with a past medical history of urosepsis, type 2 diabetes, DVT x3, Kimberly-Danlos syndrome, fibromyalgia, total hysterectomy, who presents today for evaluation of fever, chills, sore throat, fatigue and shortness of breath. Patient had dental procedure performed 3-1/2 days ago, and then 2 days ago she had mild fatigue and sore throat with mild fever. She denied any urinary symptoms, she is her PCP and was started on she believes was cipro. Since then she has become notably short of breath, felt palpitations, he has been feeling notably worse. She has had continued fever at home, not amendable to NSAIDs. She denies any chest pain, tearing or ripping sensation. She does have history of 3 DVTs in the past, they were associated with . She is on no anticoagulants. She denies any recent long trips but she did have a recent dental procedure. Patient does admit to feeling like this in the past when she was uroseptic, she denies any other complaints at this time. She denies any IV or illicit drug use, headache or neck pain. She does admit to mild low back pain, she does admit to a few episodes of vomiting as well today but denies any abdominal pain. No other complaints at this time. No other modifying factors. Related Data Home Medications Medication Instructions Recorded Confirmed pantoprazole 40 mg PO DAILY 03/19/13 08/13/19 levothyroxine [Synthroid] 75 mcg PO DAILY 06/23/13 08/13/19 albuterol sulfate 2 puff INHALATION QID PRN PRN 08/31/14 08/13/19 venlafaxine [Effexor XR] 75 mg PO DAILY tab-cap 07/26/16 08/13/19 venlafaxine [Effexor XR] 150 mg PO DAILY tab-cap 07/26/16 08/13/19 loratadine [Claritin Liqui-Gel] 1 tab PO DAILY 03/18/17 08/13/19 metformin [Glucophage] 500 mg PO TID 03/18/17 08/13/19 methylphenidate HCl [Ritalin] 20 mg PO TID 03/18/17 08/13/19 ondansetron 4 mg PO TID-QID PRN #20 tab 10/21/18 08/13/19 diclofenac sodium 50 mg PO TID PRN #10 tab 12/16/18 08/13/19 methadone 80 mg PO 08/13/19 Previous Rx's Medication Instructions Recorded ondansetron 4 mg PO TID-QID PRN #20 tab 10/21/18 diclofenac sodium 50 mg PO TID PRN #10 tab 12/16/18 Allergies Allergy/AdvReac Type Severity Reaction Status Date / Time Sulfa (Sulfonamide Allergy rash/vomiti Unverified 11/07/18 12:39 Antibiotics) ng ibuprofen AdvReac Psychosis Unverified 11/07/18 12:39 prednisone AdvReac flashes of Unverified 11/07/18 12:39 light/feels drunk General Stated Complaint: Palpitatns TANA: 2 Review of Systems All systems reviewed & are unremarkable except as noted in HPI and below PFSH Social History Smoking/Tobacco Use Status: Never Alcohol Intake: current Alcohol Intake frequency: a few times a month Alcohol type: wine Drug use: Never Substance use type: does not use Do you feel safe at home: Yes Do you feel safe in your relationship?: Yes Exam Narrative Exam Narrative: 1.Const: Well-nourished, Well-developed, appearing stated age 2.Eyes: PERRL, no conjunctival injection, and symmetrical lids. 3.ENT: Atraumatic external nose and ears. Moist MM. Neck: Symmetric, trachea midline, No thyromegaly. Patient demonstrates good movement of cervical neck. There is no nuchal rigidity, no nuchal tenderness. Patient is able to flex the neck without any difficulty or significant pain. Negative Kernig's and Brudzinski sign. 4.CVS: +S1/S2, No murmurs or gallops. Peripheral pulses 2+ and equal in all extremities. Brisk capillary refill in all extremities. 5.RESP: Unlabored respiratory effort. Clear to auscultation bilaterally. No wheezes rales or rhonchi 6.GI: Soft, Nontender/Nondistended, No hepatosplenomegaly. No guarding or rebound. 7.MSK: Normocephalic/Atraumatic, Extremities w/o deformity or ttp No cyanosis or clubbing, Normal movement of all extremities 8.Skin: Warm, Dry. No rashes or lesions. 9.Neuro: director of public health II-XII grossly intact. Sensation grossly intact, no focal neurologic deficits. 10.Psych: (AAO) x3. Appropriate mood and affect Course Vital Signs Vital signs: Vital Signs Temperature 37.9 C H 08/13/19 19:37 Pulse 136 H 08/13/19 19:37 Respiratory Rate 99 H 08/13/19 19:37 Blood Pressure 141/83 H 08/13/19 19:37 Pulse Oximetry 100 08/13/19 19:37 Temperature 37.9 C H 08/13/19 19:37 Pulse 136 H 08/13/19 19:37 Respiratory Rate 99 H 08/13/19 19:37 Respiratory Effort 08/13/19 19:53 Blood Pressure 141/83 H 08/13/19 19:37 Pulse Oximetry 100 08/13/19 19:37 Pain Level 10 08/13/19 19:37 Lab/Test Results Lab/Test Results: 08/13/19 20:45 Nose Influenza Types A,B Antigen - Pending 08/13/19 20:27 Nasopharynx Influenza Types A,B Antigen - Pending 08/13/19 20:00 Blood Blood Culture - Pending 08/13/19 20:10 Blood Blood Culture - Pending Laboratory Tests Range/Units 08/13/19 08/13/19 08/13/19 20:00 20:00 20:00 WBC (4.4-10.8) k/cumm 5.34 RBC (4.00-5.20) m/cumm 4.48 Hgb (12.0-15.5) g/dL 13.0 Hct (36.0-46.0) % 38.6 MCV (80-95) fL 86.2 MCH (27.0-33.0) pg 29.0 MCHC (32.0-36.0) g/dL 33.7 RDW (11.7-14.6) % 13.5 Plt Count (130-400) x1000/uL 254 MPV (8.0-11.0) fL 11.5 H Immature Gran % % 0.2 Neutrophils % 45.8 Lymphocytes % 39.1 Monocytes % 12.0 Eosinophils % 2.2 Basophils % 0.7 Absolute Neutrophils (1.2-6.7) k/cumm 2.44 Absolute Lymphocytes (1.2-3.4) k/cumm 2.09 Absolute Monocytes (0.11-0.7) k/cumm 0.64 Absolute Eosinophils (0.0-0.7) k/cumm 0.12 Absolute Basophils (0.0-0.2) k/cumm 0.04 PT (9.3-11.0) sec 10.2 INR (0.9-1.1) 1.0 APTT (21.0-31.4) sec 22.3 Lactate (0.6-1.4) mmol/L 1.6 H
[2019-08-13 20:47] LABS: ALT 18 U/L (14-59); AST 27 U/L (15-37); Albumin 4.3 g/dL (3.4-5.0); Alkaline Phosphatase 94 U/L (46-116); Anion Gap 12.6 mmol/L (3-11); BUN 14 mg/dL (7-18); Bilirubin, Total 0.2 mg/dL (0.2-1.0); CO2 25.4 mmol/L (21.0-32.0); CREATININE 0.73 mg/dL (0.55-1.02); Calcium 8.8 mg/dL (8.5-10.1); Chloride 102 mmol/L (98-107); Glucose 83 mg/dL (74-106); Lipase 55 U/L (73-393); Sodium 140 mmol/L (136-145); TSH (W/Ref FT4) 3.02 uIU/mL (0.36-3.74); Total Protein 8.3 g/dL (6.4-8.2)
[2019-08-13 20:48] LABS: Troponin I < 0.05 ng/Ml (<0.06)
--- NOTE | 2019-08-13 20:50 | DI.VRAD_ITS ---
PROCEDURE INFORMATION: Exam: XR Chest, 1 View Exam date and time: 08/13/2019 20:22 Age: 33 years old Clinical indication: Other: Septic, R/O pneumonia TECHNIQUE: Imaging protocol: XR of the chest Views: 1 view. COMPARISON: CR XR CHEST 2V PA LATERAL 04/27/2019 15:26 FINDINGS: Lungs: No consolidation. Pleural space: No significant pleural effusion. No pneumothorax. Heart/Mediastinum: No cardiomegaly. Bones/joints: No acute fracture. IMPRESSION: Negative portable chest. Dictated and Authenticated by: Demetra Pugh MD. Ordering:JAIMIE Quinones MD
[2019-08-13] MEDS: Ondansetron 4 MG/2 ML VIAL IVP (20:51)
[2019-08-13 20:58] LABS: D-Dimer 466 ng/mlFEU (<500)
[2019-08-13 21:05] LABS: Magnesium 2.1 mg/dL (1.8-2.4)
[2019-08-13] MEDS: AZTREONAM 2,000 MG in Normal Saline 100 ML 200 MG IVPB (21:22)
[2019-08-13 21:23] LABS: Procalcitonin < 0.1 ng/mL
[2019-08-13 21:31] LABS: Bilirubin Negative (Negative); Blood Trace-intact (Negative); Clarity Clear (Clear); Glucose Negative (Negative); Ketones >=160 mg/dL (Negative); Leukocyte Esterase Small (Negative); Nitrite Negative (Negative); Urobilinogen 0.2 EU/dL (Up TO 0.2)
[2019-08-13 21:36] LABS: C & S Indicated? C&S Done As Ordered
[2019-08-13] MEDS: Ketorolac 15 MG/ML VIAL IVP (21:36)
[2019-08-13 21:39] LABS: Bacteria Moderate HPF (Negative); Epithelial Cells Many HPF (Negative); RBC Negative HPF (0-2); WBC 20-50 HPF (0-5)
[2019-08-13 21:40] LABS: Casts Negative LPF (Negative); Crystals Negative HPF (Negative); Mucus Negative (Negative)
[2019-08-13] MEDS: VANCOMYCIN 1,000 MG in Normal Saline 500 ML 333.3333 MG IVPB (22:12)
[2019-08-13] MEDS: POTASSIUM CHLORIDE 20 MEQ/100 ML BAG 50 MEQ IVPB (22:14)
--- NOTE | 2019-08-13 23:30 | HPE_ITS ---
Date of service: 08/13/19 Time of Service: 23:30 Assessment and Plan Assessment and plan (1) Fever: Status: Acute Assessment and plan: Fever, tachycardia, flank pain and dysuria point to a urinary source, possible urosepsis. Preceding this had upper respiratory symptoms and this may, instead, simply be a viral infection. Urine culture obtained 2 days before presentation, prior to initiating any antibiotics, is indeterminate with mixed gram-positive organisms in a mid to low colony count. The subsequent urine and blood cultures drawn today may consequently be negative because of the antecedent use of ciprofloxacin. Strep test 2 days prior to presentation negative. Influenza swab here in the ER negative. I suspect all treatment for this infectious event is going to be empiric as cultures are probably going to be nondiagnostic or negative. She received broad-spectrum antibiotics in the emergency room which I do not think, based on clinical information now available, as needed. I am placing her on ceftriaxone and monitoring symptoms, fever, white count and await cultures. (2) Dysuria: Status: Acute Assessment and plan: Management as above. At this point symptoms are re latively mild and I do not think we need to use Pyridium or other symptom treatment directed towards dysuria. (3) Vomiting: Status: Acute Assessment and plan: She has been on oral ondansetron with not much effect with this illness but no evidence of QTC prolongation on her ECG. We will con tinue with IV ondansetron which seemed to work better in the ER. Hopefully with treatment of infection the nausea and vomiting will get better. Continue PPI at outpatient dose. (4) Hypothyroidism: Status: Acute Assessment and plan: TSH recently checked, within normal range. Continue outpatient dose of levothyroxine. (5) Acute hypokalemia: Status: Acute Assessment and plan: Mild hypokalemia possibly from GI losses. Supplement with IV and recheck in the morning. (6) Acute flank pain: Status: Acute Assessment and plan: Mild symptoms now, do not think this represents a stone. Did not have hematuria on urinalysis. If symptoms worsen consider CT pyelogram to assess for urolithiasis. (7) Long-term current use of methadone for opiate dependence: Status: Acute Assessment and plan: Reports stable in recovery on current methadone dose which we will continue. (8) Sepsis: Status: Acute Assessment and plan: Initial presentation compatible with sepsis. Has responded to fluids, symptom relief. Management as above. (9) Fibromyalgia: Status: Acute Assessment and plan: Appears to be stable on outpatient management, continue gabapentin and venlafaxine at current doses. (10) Prediabetes: Status: Acute Assessment and plan: Outpatient hemoglobin A 1C results have consistently been less than 6.0. The recent episode of nausea and vomiting seems to be acute and probably not related to metformin but need to keep this in mind as a p ossible adverse reaction. Perhaps, if nausea persists, dose reduction or temporarily holding metformin to see how she responds. (11) Hot flashes due to surgical menopause: Status: Acute Assessment and plan: She has had a history of related DVTs and he had has been on chronic estrogen since her hysterectomy and oophorectomy (unilateral versus bilateral?) Intolerable hot flashes without the estrogen. I am continuing her outpatient regimen. History of Present Illness History of Present Illness Chief Complaint: Nausea, vomiting, fever, feeling generally unwell . Narrative: 33-year-old woman presented to the emergency room with progressively feeling unwell in general. She was seen 2 days ago in the acute care of [facility] with sore throat, myalgias beyond her usual, fever, mild cough. She has chronic nasal congestion from allergies which was not worse than her typical. She also complained of a little bit of left low back pain. Quick strep was negative. Urine dipstick had trace leukocytes. Urine was sent for culture which has subsequently grown 10-50,000 colonies per mL mixed gram-positive cocci. She was started on Cipro empirically at the time of her office visit of which she has taken 5 doses. Her sore throat is gotten a bit better but she has had increasing low back pain and has today developed some dysuria. She has not had urgency. She has also had persistent fever and has today developed nausea and nonbloody nonbilious emesis. No diarrhea. She has a history of past urinary tract infections and pyelonephritis although in terms of positive cultures, nothing in our records since 2013. She has had several indeterminate urine culture results. She had some restorative dental work done the week prior to presentation. No mouth swelling. There is still some discomfort at the site. She has not had any productive cough. No pleuritic chest pain. No recent travel. She has received the influenza vaccine this past fall. No rash. She has been abstinent in her recovery with no history of using IV drugs. On presentation to the emergency room she was febrile, tachycardic, generally uncomfortable. She had labs drawn, blood and urine cultures obtained (contaminated urine specimen based on presence of epithelial cells) was given a saline bolus and dosed with doxycycline, aztreonam and vancomycin. At the time of my interview her hemodynamic status had improved significantly with heart rate in the 80s to 90s and subjectively feeling much better with improvement of nausea after IV ondansetron. Review of Systems All systems reviewed & are unremarkable except as noted in HPI and below PFSH Social History Smoking/Tobacco Use Status: Never Alcohol Intake: current Alcohol Intake frequency: a few times a month Alcohol type: wine Drug use: Never Substance use type: does not use Do you feel safe at home: Yes Do you feel safe in your relationship?: Yes Meds Home Medications and Allergies Home Medications Medication Instructions Recorded Confirmed Type pantoprazole 40 mg PO DAILY 03/19/13 08/13/19 History levothyroxine [Synthroid] 75 mcg PO DAILY 06/23/13 08/13/19 History albuterol sulfate 2 puff INHALATION QID PRN PRN 08/31/14 08/13/19 History venlafaxine [Effexor XR] 75 mg PO DAILY tab-cap 07/26/16 08/13/19 History venlafaxine [Effexor XR] 150 mg PO DAILY tab-cap 07/26/16 08/13/19 History loratadine [Claritin Liqui-Gel] 1 tab PO DAILY 03/18/17 08/13/19 History metformin [Glucophage] 500 mg PO TID 03/18/17 08/13/19 History methylphenidate HCl [Ritalin] 20 mg PO TID 03/18/17 08/13/19 History ondansetron 4 mg PO TID-QID PRN #20 tab 10/21/18 08/13/19 Rx diclofenac sodium 50 mg PO TID PRN #10 tab 12/16/18 08/13/19 Rx estradiol 1 mg BID 08/13/19 08/13/19 History gabapentin 300 mg PO QID 02/28/20 02/28/20 History methadone 80 mg PO 08/13/19 History Allergies Allergy/AdvReac Type Severity Reaction Status Date / Time Sulfa (Sulfonamide Allergy rash/vomiti Unverified 11/07/18 12:39 Antibiotics) ng ibuprofen AdvReac Psychosis Unverified 11/07/18 12:39 prednisone AdvReac flashes of Unverified 11/07/18 12:39 light/feels drunk Exam Narrative Exam Narrative: Woman appearing her stated age in no acute distress after ER interventions as noted in HPI. Temperature 37.9 blood pressure 100-1 10 over 60s pulse rate in the 80s, sinus rhythm on monitor. SaO2 99% on room air. Sclera clear. No facial swelling. No gingival swelling or discharge. Pharynx with tonsils surgically absent. Neck supple no cervical adenopathy. Lungs clear throughout no wheeze crackles or rub. Regular heart rhythm without murmur S3 or S4. Active bowel sounds no tenderness to palpation. Extremities warm, good pulses. Several tattoos, no petechiae, no erythema. There is no calf swelling or tenderness. She has symmetric movement of all extremities. 2+ DTRs throughout. Oriented x4. Results Chest x-ray clear. EKG QTC 464 ms. Urinalysis probably contaminated specimen based on number of epithelial cells present. Blood cultures drawn. Labs Result diagrams: 08/13/19 20:00 08/13/19 20:00 Labs: Laboratory Results - last 24 hr 08/13/19 08/13/19 08/13/19 20:00 20:00 20:00 WBC 5.34 RBC 4.48 Hgb 13.0 Hct 38.6 MCV 86.2 MCH 29.0 MCHC 33.7 RDW 13.5 Plt Count 254 MPV 11.5 H Immature Gran % 0.2 Neutrophils % 45.8 Lymphocytes % 39.1 Monocytes % 12.0 Eosinophils % 2.2 Basophils % 0.7 Absolute Neutrophils 2.44 Absolute Lymphocytes 2.09 Absolute Monocytes 0.64 Absolute Eosinophils 0.12 Absolute Basophils 0.04 PT INR APTT D-Dimer Sodium 140 Potassium 3.0 L Chloride 102 Carbon Dioxide 25.4 Anion Gap 12.6 H BUN 14 Creatinine 0.73 Estimated GFR/1.73 m2 >= 60.00 Glucose 83 Lactate 1.6 H Calcium 8.8 Magnesium Total Bilirubin 0.2 AST 27 ALT 18 Alkaline Phosphatase 94 Troponin I < 0.05 Total Protein 8.3 H Albumin 4.3 Lipase 55 Procalcitonin TSH 3.02 Urine Color Urine Clarity Urine pH Ur Specific [place] Urine Protein Urine Ketones Urine Blood Urine Nitrite Urine Bilirubin Urine Urobilinogen Ur Leukocyte Esterase Urine RBC Urine WBC Ur Epithelial Cells Urine Crystals Urine Bacteria Urine Casts Urine Mucus Ur Culture Indicated? Urine Glucose 08/13/19 08/13/19 08/13/19 20:00 20:00 20:00 WBC RBC Hgb Hct MCV MCH MCHC RDW Plt Count MPV Immature Gran % Neutrophils % Lymphocytes % Monocytes % Eosinophils % Basophils % Absolute Neutrophils Absolute Lymphocytes Absolute Monocytes Absolute Eosinophils Absolute Basophils PT 10.2 INR 1.0 APTT 22.3 D-Dimer 466 Sodium Potassium Chloride Carbon Dioxide Anion Gap BUN Creatinine Estimated GFR/1.73 m2 Glucose Lactate Calcium Magnesium 2.1 Total Bilirubin AST ALT Alkaline Phosphatase Troponin I Total Protein Albumin Lipase Procalcitonin < 0.1 TSH Urine Color Urine Clarity Urine pH Ur Specific [place] Urine Protein Urine Ketones Urine Blood Urine Nitrite Urine Bilirubin Urine Urobilinogen Ur Leukocyte Esterase Urine RBC Urine WBC Ur Epithelial Cells Urine Crystals Urine Bacteria Urine Casts Urine Mucus Ur Culture Indicated? Urine Glucose 08/13/19 21:16 WBC RBC Hgb Hct MCV MCH MCHC RDW Plt Count MPV Immature Gran % Neutrophils % Lymphocytes % Monocytes % Eosinophils % Basophils % Absolute Neutrophils Absolute Lymphocytes Absolute Monocytes Absolute Eosinophils Absolute Basophils PT INR APTT D-Dimer Sodium Potassium Chloride Carbon Dioxide Anion Gap BUN Creatinine Estimated GFR/1.73 m2 Glucose Lactate Calcium Magnesium Total Bilirubin AST ALT Alkaline Phosphatase Troponin I Total Protein Albumin Lipase Procalcitonin TSH Urine Color Yellow Urine Clarity Clear Urine pH 7.0 Ur Specific [place] 1.020 Urine Protein Negative Urine Ketones >=160 H Urine Blood Trace-intact H Urine Nitrite Negative Urine Bilirubin Negative Urine Urobilinogen 0.2 Ur Leukocyte Esterase Small H Urine RBC Negative Urine WBC 20-50 H Ur Epithelial Cells Many Urine Crystals Negative Urine Bacteria Moderate Urine Casts Negative Urine Mucus Negative Ur Culture Indicated? C&s done as ordered Urine Glucose Negative Last Vital Signs Temp 37.9 C H 08/13/19 19:37 Pulse 95 H 08/13/19 23:01 Resp 19 08/13/19 23:10 BP 107/68 08/13/19 23:01 Pulse Ox 99 08/13/19 23:10
[2019-08-13 23:34] LABS: Bilirubin Negative (Negative); Blood Negative (Negative); Clarity Clear (Clear); Glucose Negative (Negative); Ketones 15 mg/dL (Negative); Leukocyte Esterase Negative (Negative); Nitrite Negative (Negative); Urobilinogen 0.2 EU/dL (Up TO 0.2); pH 6.5 (5-8)
[2019-08-14] VITALS (10 sets, daily range): BP systolic 101–126; BP diastolic 66–77; PULSE 72–94; RESP 14–19; TEMP 36.3–37.1; O2SAT 97–100
[2019-08-14] MEDS: Normal Saline Flush 10 ML SYR (01:14)
[2019-08-14] MEDS: POTASSIUM CHLORIDE/0.9% NACL 1,000 ML 150 MEQ IV ×4 (01:14→21:47)
[2019-08-14] MEDS: Levothyroxine 75 MCG TAB PO (05:56)
[2019-08-14 06:58] LABS: HCT 33.8 % (36.0-46.0); HGB 10.6 g/dL (12.0-15.5); Mean Corp. HGB Concentration 31.4 g/dL (32.0-36.0); Mean Corpuscular Hemoglobin 27.9 pg (27.0-33.0); Mean Corpuscular Volume 88.9 fL (80-95); Mean Platelet Volume 11.8 fL (8.0-11.0); Platelet Count 192 x1000/uL (130-400); RBC Distribution Width 13.9 % (11.7-14.6); White Blood Cell Count 4.48 k/cumm (4.4-10.8)
[2019-08-14 07:11] LABS: Anion Gap 6.2 mmol/L (3-11); BUN 6 mg/dL (7-18); CO2 24.8 mmol/L (21.0-32.0); CREATININE 0.44 mg/dL (0.55-1.02); Calcium 7.5 mg/dL (8.5-10.1); Chloride 111 mmol/L (98-107); Glucose 95 mg/dL (74-106); Potassium 4.3 mmol/L (3.5-5.1); Sodium 142 mmol/L (136-145)
--- NOTE | 2019-08-14 07:42 | NUR.NOTE ---
Nursing Note: 08/14/19 0761 Spoke with Krista covarrubias [facility] who stated Kaia Young with same birthdate received methadone last on August 13, 2019 at a dose of 80 mg.
[2019-08-14] MEDS: Gabapentin 300 MG CAP PO ×4 (07:46→20:12)
[2019-08-14] MEDS: Venlafaxine 150 MG CAPCR PO (07:46)
[2019-08-14] MEDS: Venlafaxine 37.5 MG CAPCR 75 MG PO (07:46)
[2019-08-14] MEDS: Loratidine 10 MG TAB PO (07:47)
[2019-08-14] MEDS: Pantoprazole 40 MG TABCR PO (07:47)
[2019-08-14] MEDS: metFORMIN 500 MG TAB PO (07:47)
[2019-08-14] MEDS: cefTRIAXone 1 GM/50 ML BAG IVPB (07:48)
[2019-08-14] MEDS: Estradiol 1 MG TAB PO ×2 (09:02→20:11)
[2019-08-14] MEDS: Methadone Liquid 10 MG/ML 80 MG PO (09:02)
--- NOTE | 2019-08-14 10:25 | PDOC.CMIN ---
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 Surgical: Hysterectomy, x3, umbilical hernia repair, tonsillectomy, adenoidectomy, LUCÍA. PREVIOUS FUNCTIONAL STATUS/SOCIAL/FAMILY SUPPORTS:: Kaia lives in [facility] with her spouse, Fabian. Per Kaia, she has one child who is six years old. She is disabled at baseline, but is independent with her ADL's. Per Kaia, her pain is unmanageable at times. CURRENT FUNCTIONAL STATUS:: Kaia was lying in bed when CM met with her. She reported that she was beginning to feel better. She stated that, per MD, testing was being completed on her stool to determine the source of infection. Kaia shared her concern regarding pain caused by her underlying illnesses. She also stated that she is in the process of changing PCP's- back to Graciela Mohamud, who had left the current practice. Kaia had a good relationship with her, and is planning on following her to her new practice. CM will continue to follow. ADVANCE DIRECTIVES:: None of file. Has patient been provided with information about the portal?: No Did the patient sign up for the portal?: No CODE STATUS:: Full Code INSURANCE COVERAGE / FINANCIAL ISSUES:: [employer] CURRENT HOME/COMMUNITY SERVICES/EQUIPMENT:: Kaia currently does not have equipment. She does see Sandra Chris at [facility] regularly. PRIMARY CARE PHYSICIAN:: Currently she sees Bartolo Landa, but she plans to follow Graciela Mohamud, her previous PCP to her current practice at [facility]. POTENTIAL DISCHARGE NEEDS:: Evaluations for further needs, follow up appointments PATIENT/FAMILY EDUCATION NEEDS:: Review discharge instructions regarding activity levels and medications, discussion of self care needs including ask me three ANTICIPATED BARRIERS TO DISCHARGE:: None identified at this time. TRANSPORTATION:: Anticipate she will be driven home via private vehicle by family/friends. PLAN:: Anticipate Kaia will return home when medically cleared. No anticipated services at this time. She will follow up with her PCP and discharge plan of care. She will transport via private vehicle by family/friends when ready. CM will continue to follow.
[2019-08-14] MEDS: Methylphenidate 10 MG TAB 20 MG PO ×3 (10:29→20:12)
[2019-08-14 10:41] LABS: Lactate 0.8 mmol/L (0.6-1.4)
[2019-08-14 10:44] LABS: *AMPHETAMINES SCREEN URINE Negative (Negative); *BARBITURATES SCREEN URINE Negative (Negative); *BENZODIAZEPINES SCREEN URINE Negative (Negative); Cannabinoids THC Negative (Negative); Cocaine Screen,Urine Negative (Negative); METHADONE URINE SCREEN POSITIVE (Negative); OPIATES URINE SCREEN Negative (Negative)
[2019-08-14 10:45] LABS: Tricyclic Antidepressants Negative (Negative)
--- NOTE | 2019-08-14 11:41 | PHA.ADMREV ---
Pharmacy Clinical Review - Admission Clinical Review (Last Updated 08/13/19 @ 23:36 by Allen Cherry MD) Hot flashes due to surgical menopause (Acute) Prediabetes (Acute) Long-term current use of methadone for opiate dependence (Acute) Vomiting (Acute) Dysuria (Acute) Fever (Acute) Sepsis (Acute) Pyelonephritis (Acute) Acute hypokalemia (Acute) Acute flank pain (Acute) Fibromyalgia (Acute 05/23/16) Hypothyroidism (Acute 02/09/13) Sulfa (Sulfonamide Antibiotics) Allergy (Unverified 11/07/18 12:39) rash/vomiting ibuprofen Adverse Reaction (Unverified 11/07/18 12:39) Psychosis prednisone Adverse Reaction (Unverified 11/07/18 12:39) flashes of light/feels drunk Height 4 ft 11 in Weight 47.8 kg - Renal Dosing Renal Dosing: BUN 6 mg/dL (7-18) L 08/14/19 06:25 Creatinine 0.44 mg/dL (0.55-1.02) L 08/14/19 06:25 Medications needing adjustments: Reviewed (Est CrCl~72mL/min.. (Effexor-OK)) - Anticoagulation Anticoagulation: Hgb 10.6 g/dL (12.0-15.5) L D 08/14/19 06:25 Hct 33.8 % (36.0-46.0) L 08/14/19 06:25 Plt Count 192 x1000/uL (130-400) 08/14/19 06:25 INR 1.0 (0.9-1.1) 08/13/19 20:00 Creatinine 0.44 mg/dL (0.55-1.02) L 08/14/19 06:25 DVT Prohphylaxis: Reviewed ( concerned about patient Hx of DVT and her currently ttaking Estrogens. No DVT Proph yet) Therapeutic Anticoagulation: N/A - Opiate Usage Evaluate Pain Scale/Pains Meds: Reviewed (Methadone 80mg daily (confirmed by nursing with MINERVA)) Scheduled Bowel Reg ordered if on Opiates?: Yes - Relevant Labs Sodium 142 mmol/L (136-145) 08/14/19 06:25 Potassium 4.3 mmol/L (3.5-5.1) D 08/14/19 06:25 Chloride 111 mmol/L (98-107) H 08/14/19 06:25 Magnesium 2.1 mg/dL (1.8-2.4) 08/13/19 20:00 Electrolytes, C-Reactive P, ESR: Reviewed (Electrolytes-WNL) - Antimicrobial Stewardship Antibiotic appropriateness: Reviewed (Patient is on Cefriaxone 1gm IV q24h, In ER had one time doses of Vancomycin, Doxycycline and Aztreonam) Surgical Abx d/c within 24 hr: N/A Culture review/Resistance: Reviewed (Blood & Urine -pending, Flu-negative) - DM Control DM Control: Glucose 95 mg/dL (74-106) 08/14/19 06:25 Finger Stick Blood Glucose 101 Insulin Dosing: Reviewed (on Metformin 500mg AC) - Heart Failure/WV Heart Failure/WV: Troponin I Cancelled 08/13/19 23:06 - BP Control BP Control: Blood Pressure 101/68 Blood Pressure 123/67 Blood Pressure 126/77 - QTc Review If Elevated: Reviewed (QTc-464 On mETHADONE, PROTONIX , ZOFRAN & vENLAFAXINE) - IV to PO Switch IV Medications: N/A - Home Meds Home Med List reviewed: Reviewed (Diclofenac & Acyclovir (prn) NOT ORDERED, Cipro-Failed,) - Current meds Current Medication Order Review: Reviewed (REVIEWED)
--- NOTE | 2019-08-14 16:23 | W.PM.PROGNOT ---
Date of Service Date of service: 08/14/19 Time of Service: 16:23 Assessment and Plan Assessment and plan (1) Viral gastroenteritis: Status: Acute Assessment and plan: Based on fever, nausea, and now diarrhea as well as a sick contact. Stool studies are pending - however, I expect that the care will be supportive. We will hold metformin as it could exacerbate the diarrhea. Continue IVF. Check orthostatics. (2) Dysuria: Status: Acute Assessment and plan: UA negative. Will await C&S as patients can have pyelonephritis but negative UA if there is an obstruction, but I feel that we can likely d/c ceftriaxone tomorrow. Consider other causes of dysuria (i.e. herpes or other STDs) if sx persist. (3) Hypothyroidism: Status: Acute Assessment and plan: Continue levothyroxine. (4) Acute hypokalemia: Status: Acute Assessment and plan: Continue repletion; monitor (5) Acute flank pain: Status: Resolved Assessment and plan: ? due to pyelonephritis vs gastroenteritis. (6) Long-term current use of methadone for opiate dependence: Status: Acute Assessment and plan: A patient of [facility]. Continue methadone (7) Sepsis: Status: Ruled-out Assessment and plan: Ruled out (8) Fibromyalgia: Status: Acute Assessment and plan: Continue gabapentin and venlafaxine. (9) Prediabetes: Status: Acute Assessment and plan: Hold metformin in setting of acute GI illness (10) Hot flashes due to surgical menopause: Status: Acute Assessment and plan: on chronic estrogen therapy for early post-op menopause (s/p hysterectomy/unilateral oophorectomy). Follow up as outpatient, though risks of this should be considered given h/o related DVT. (11) DVT prophylaxis: Status: Acute Assessment and plan: Start SC lovenox (12) Discharge planning issues: Status: Acute Assessment and plan: Full code Anticipate discharge home in 48 hours Subjective Subjective Interval history since last seen: Ms Briones complains of having watery diarrhea starting this morning - she has had at least 12 liquid BM's. Endorses dizziness, but this got a lot better since admission. Denies chest pain, shortness of breath. Denies nausea and abdominal pain. C/o bloating. States she normally takes metformin twice a day and has diarrhea at home too, but never this frequent. States her best friend had a GI bug in the last few days. Exam Narrative Exam Narrative: General: Very pleasant female, A&Ox3, does not look toxic HEENT: EOMI, MMM, very dilated pupils (in the dark) Heart: RRR, mildly tachycardic, no m/r/g Lungs: CTAB Abdomen: soft, distended, nontender Extremities: no e/c/c BLE's Objective Objective Clinical Data: Abnormal lab results 08/13/19 08/13/19 08/13/19 Range/Units 20:00 20:00 20:00 RBC (4.00-5.20) m/cumm Hgb (12.0-15.5) g/dL Hct (36.0-46.0) % MCHC (32.0-36.0) g/dL MPV 11.5 H (8.0-11.0) fL Potassium 3.0 L (3.5-5.1) mmol/L Chloride (98-107) mmol/L Anion Gap 12.6 H (3-11) mmol/L BUN (7-18) mg/dL Creatinine (0.55-1.02) mg/dL Lactate 1.6 H (0.6-1.4) mmol/L Calcium (8.5-10.1) mg/dL Total Protein 8.3 H (6.4-8.2) g/dL Urine Ketones (Negative) mg/dL Urine Blood (Negative) Ur Leukocyte Esterase (Negative) Urine WBC (0-5) HPF Urine Methadone Screen (Negative) 08/13/19 08/13/19 08/14/19 Range/Units 21:16 23:25 06:25 RBC (4.00-5.20) m/cumm Hgb (12.0-15.5) g/dL Hct (36.0-46.0) % MCHC (32.0-36.0) g/dL MPV (8.0-11.0) fL Potassium (3.5-5.1) mmol/L Chloride 111 H (98-107) mmol/L Anion Gap (3-11) mmol/L BUN 6 L (7-18) mg/dL Creatinine 0.44 L (0.55-1.02) mg/dL Lactate (0.6-1.4) mmol/L Calcium 7.5 L (8.5-10.1) mg/dL Total Protein (6.4-8.2) g/dL Urine Ketones >=160 H 15 H (Negative) mg/dL Urine Blood Trace-intact H (Negative) Ur Leukocyte Esterase Small H (Negative) Urine WBC 20-50 H (0-5) HPF Urine Methadone Screen (Negative) 08/14/19 08/14/19 Range/Units 06:25 09:55 RBC 3.80 L (4.00-5.20) m/cumm Hgb 10.6 L D (12.0-15.5) g/dL Hct 33.8 L (36.0-46.0) % MCHC 31.4 L (32.0-36.0) g/dL MPV 11.8 H (8.0-11.0) fL Potassium (3.5-5.1) mmol/L Chloride (98-107) mmol/L Anion Gap (3-11) mmol/L BUN (7-18) mg/dL Creatinine (0.55-1.02) mg/dL Lactate (0.6-1.4) mmol/L Calcium (8.5-10.1) mg/dL Total Protein (6.4-8.2) g/dL Urine Ketones (Negative) mg/dL Urine Blood (Negative) Ur Leukocyte Esterase (Negative) Urine WBC (0-5) HPF Urine Methadone Screen Positive A (Negative) Vital Signs Temperature 36.6 C 08/14/19 15:52 Temperature Source Tympanic 08/14/19 15:52 Pulse 74 08/14/19 15:52 Pulse Rhythm Regular 08/14/19 07:40 Pulse 94 H 08/14/19 00:00 Respiratory Rate 14 08/14/19 15:52 Respiratory Effort Non-Labored 08/14/19 07:40 Respiratory Depth Normal 08/14/19 07:40 Respiratory Pattern Normal 08/14/19 07:40 Blood Pressure 117/69 08/14/19 15:52 Blood Pressure Mean 71 08/13/19 23:16 Pulse Oximetry 98 08/14/19 15:52 Oxygen Delivery Method Room Air 08/14/19 15:52 Oxygen Flow Rate 0 08/14/19 15:52 Pain Level 3 08/14/19 15:52 Intake & Output 08/13/19 08/14/19 08/14/19 23:59 11:59 23:59 Intake Total 2440 / 2440 1645 / 2645 1000 / 2645 Output Total 800 / 800 900 / 900 Balance 1640 / 1640 745 / 1745 1000 / 1745 Weight 47.627 kg 47.8 kg Intake: IV 2200 / 2200 1035 / 2035 1000 / 2035 Oral 240 / 240 610 / 610 Output: Urine 800 / 800 900 / 900 Other: Urine Color Pale Urine Appearance Clear Urine Odor None Stool Size Moderate Stool Characteristics Liquid Voiding Methods Toilet Laboratory Results WBC 4.48 k/cumm (4.4-10.8) 08/14/19 06:25 RBC 3.80 m/cumm (4.00-5.20) L 08/14/19 06:25 Hgb 10.6 g/dL (12.0-15.5) L D 08/14/19 06:25 Hct 33.8 % (36.0-46.0) L 08/14/19 06:25 MCV 88.9 fL (80-95) 08/14/19 06:25 MCH 27.9 pg (27.0-33.0) 08/14/19 06:25 MCHC 31.4 g/dL (32.0-36.0) L 08/14/19 06:25 RDW 13.9 % (11.7-14.6) 08/14/19 06:25 Plt Count 192 x1000/uL (130-400) 08/14/19 06:25 MPV 11.8 fL (8.0-11.0) H 08/14/19 06:25 Immature Gran % 0.2 % 08/13/19 20:00 Neutrophils % 45.8 08/13/19 20:00 Lymphocytes % 39.1 08/13/19 20:00 Monocytes % 12.0 08/13/19 20:00 Eosinophils % 2.2 08/13/19 20:00 Basophils % 0.7 08/13/19 20:00 Absolute Neutrophils 2.44 k/cumm (1.2-6.7) 08/13/19 20:00 Absolute Lymphocytes 2.09 k/cumm (1.2-3.4) 08/13/19 20:00 Absolute Monocytes 0.64 k/cumm (0.11-0.7) 08/13/19 20:00 Absolute Eosinophils 0.12 k/cumm (0.0-0.7) 08/13/19 20:00 Absolute Basophils 0.04 k/cumm (0.0-0.2) 08/13/19 20:00 PT 10.2 sec (9.3-11.0) 08/13/19 20:00 INR 1.0 (0.9-1.1) 08/13/19 20:00 APTT 22.3 sec (21.0-31.4) 08/13/19 20:00 D-Dimer 466 ng/mlFEU (<500) 08/13/19 20:00 Sodium 142 mmol/L (136-145) 08/14/19 06:25 Potassium 4.3 mmol/L (3.5-5.1) D 08/14/19 06:25 Chloride 111 mmol/L (98-107) H 08/14/19 06:25 Carbon Dioxide 24.8 mmol/L (21.0-32.0) 08/14/19 06:25 Anion Gap 6.2 mmol/L (3-11) 08/14/19 06:25 BUN 6 mg/dL (7-18) L 08/14/19 06:25 Creatinine 0.44 mg/dL (0.55-1.02) L 08/14/19 06:25 Estimated GFR/1.73 m2 >= 60.00 (mL/min/1.73m2) 08/14/19 06:25 Glucose 95 mg/dL (74-106) 08/14/19 06:25 Lactate 0.8 mmol/L (0.6-1.4) 08/14/19 10:35 Calcium 7.5 mg/dL (8.5-10.1) L 08/14/19 06:25 Magnesium 2.1 mg/dL (1.8-2.4) 08/13/19 20:00 Total Bilirubin 0.2 mg/dL (0.2-1.0) 08/13/19 20:00 AST 27 U/L (15-37) 08/13/19 20:00 ALT 18 U/L (14-59) 02/28/20 20:00 Alkaline Phosphatase 94 U/L (46-116) 08/13/19 20:00 Troponin I Cancelled 08/13/19 23:06 Total Protein 8.3 g/dL (6.4-8.2) H 08/13/19 20:00 Albumin 4.3 g/dL (3.4-5.0) 08/13/19 20:00 Lipase 55 U/L (73-393) 08/13/19 20:00 Procalcitonin < 0.1 ng/mL 08/13/19 20:00 TSH 3.02 uIU/mL (0.36-3.74) 08/13/19 20:00 Urine Color Yellow (Yellow) 08/13/19 23:25 Urine Clarity Clear (Clear) 08/13/19 23:25 Urine pH 6.5 (5-8) 08/13/19 23:25 Ur Specific [place] 1.010 (1.005-1.025) 08/13/19 23:25 Urine Protein Negative mg/dL (Negative) 08/13/19 23:25 Urine Ketones 15 mg/dL (Negative) H 08/13/19 23:25 Urine Blood Negative (Negative) 08/13/19 23:25 Urine Nitrite Negative (Negative) 08/13/19 23:25 Urine Bilirubin Negative (Negative) 08/13/19 23:25 Urine Urobilinogen 0.2 EU/dL (Up TO 0.2) 08/13/19 23:25 Ur Leukocyte Esterase Negative (Negative) 08/13/19 23:25 Urine RBC Negative HPF (0-2) 08/13/19 21:16 Urine WBC 20-50 HPF (0-5) H 08/13/19 21:16 Ur Epithelial Cells Many HPF (Negative) 08/13/19 21:16 Urine Crystals Negative HPF (Negative) 08/13/19 21:16 Urine Bacteria Moderate HPF (Negative) 08/13/19 21:16 Urine Casts Negative LPF (Negative) 08/13/19 21:16 Urine Mucus Negative (Negative) 08/13/19 21:16 Ur Culture Indicated? C&s done as ordered 08/13/19 21:16 Urine Glucose Negative mg/dL (Negative) 08/13/19 23:25 Urine Opiates Screen Negative (Negative) 08/14/19 09:55 Urine Methadone Screen Positive (Negative) A 08/14/19 09:55 Ur Barbiturates Screen Negative (Negative) 08/14/19 09:55 Ur Tricyclics Screen Negative (Negative) 08/14/19 09:55 Ur Amphetamines Screen Negative (Negative) 08/14/19 09:55 U Benzodiazepines Scrn Negative (Negative) 08/14/19 09:55 Urine Cocaine Screen Negative (Negative) 08/14/19 09:55 Ur THC Screen Negative (Negative) 08/14/19 09:55
[2019-08-14] MEDS: Acetaminophen 325 MG TAB 650 MG PO (18:27)
[2019-08-14] MEDS: Dicyclomine 10 MG CAP 20 MG PO (21:46)
[2019-08-14] MEDS: Normal Saline Flush 10 ML SYR IVP (21:47)
[2019-08-15 03:55] VITALS: BP 104/65; PULSE 72; RESP 16; TEMP 36.8; O2SAT 99
[2019-08-15] MEDS: POTASSIUM CHLORIDE/0.9% NACL 1,000 ML 150 MEQ IV (04:12)
[2019-08-15] MEDS: Levothyroxine 75 MCG TAB PO (06:19)
[2019-08-15 06:49] LABS: Abs Immature Grans 0.01 k/cumm (0.0-0.09); Absolute Basophil Count 0.03 k/cumm (0.0-0.2); Absolute Eosinophil Count 0.22 k/cumm (0.0-0.7); Absolute Lymphocyte Count 2.17 k/cumm (1.2-3.4); Absolute Monocyte Count 0.36 k/cumm (0.11-0.7); Absolute Neutrophil Count 1.23 k/cumm (1.2-6.7); Basophils % 0.7; Eosinophils % 5.5; HGB 10.5 g/dL (12.0-15.5); Immature Grans % 0.2 %; Mean Corp. HGB Concentration 31.8 g/dL (32.0-36.0); Mean Corpuscular Hemoglobin 28.4 pg (27.0-33.0); Mean Corpuscular Volume 89.2 fL (80-95); Mean Platelet Volume 11.7 fL (8.0-11.0); Neutrophils % 30.6; Platelet Count 183 x1000/uL (130-400); RBC Distribution Width 13.8 % (11.7-14.6); White Blood Cell Count 4.02 k/cumm (4.4-10.8)
[2019-08-15 06:57] LABS: Anion Gap 7.5 mmol/L (3-11); BUN 6 mg/dL (7-18); CO2 26.5 mmol/L (21.0-32.0); CREATININE 0.46 mg/dL (0.55-1.02); Calcium 7.8 mg/dL (8.5-10.1); Chloride 106 mmol/L (98-107); Glucose 98 mg/dL (74-106); Magnesium 1.8 mg/dL (1.8-2.4); Potassium 4.5 mmol/L (3.5-5.1); Sodium 140 mmol/L (136-145)
[2019-08-15] MEDS: Enoxaparin 40 MG/0.4 ML SYR SC (07:52)
[2019-08-15] MEDS: cefTRIAXone 1 GM/50 ML BAG IVPB (07:52)
[2019-08-15] MEDS: Dicyclomine 10 MG CAP 20 MG PO ×2 (07:52→11:34)
[2019-08-15] MEDS: Methylphenidate 10 MG TAB 20 MG PO ×2 (07:53→13:56)
[2019-08-15] MEDS: Pantoprazole 40 MG TABCR PO (07:53)
[2019-08-15] MEDS: Venlafaxine 150 MG CAPCR PO (07:53)
[2019-08-15] MEDS: Venlafaxine 37.5 MG CAPCR 75 MG PO (07:53)
[2019-08-15] MEDS: Gabapentin 300 MG CAP PO ×2 (07:53→11:34)
[2019-08-15] MEDS: Estradiol 1 MG TAB PO (07:53)
[2019-08-15] MEDS: Loratidine 10 MG TAB PO (07:54)
[2019-08-15] MEDS: Methadone Liquid 10 MG/ML 80 MG PO (07:54)
[2019-08-15 08:10] VITALS: BP 96/62; PULSE 70; RESP 18; TEMP 36.6; O2SAT 98
[2019-08-15] MEDS: Normal Saline 1,000 ML 100 ML IV (09:47)
[2019-08-15 11:30] VITALS: BP 107/60; PULSE 75; RESP 18; TEMP 36; O2SAT 98
[2019-08-15] MEDS: Loperamide 2 MG CAP PO (11:34)
--- NOTE | 2019-08-15 12:10 | DSE_ITS ---
Date of service: 08/15/19 Time of Service: 12:11 DS: Diagnosis Discharge Diagnosis (1) Viral gastroenteritis: Status: Acute (2) Dysuria: Status: Resolved Asessment and Plan: UTI ruled out (3) Hypothyroidism: Status: Chronic (4) Acute hypokalemia: Status: Resolved (5) Acute flank pain: Status: Resolved Asessment and Plan: UTI ruled out (6) Long-term current use of methadone for opiate dependence: Status: Acute (7) Sepsis: Status: Ruled-out (8) Fibromyalgia: Status: Acute (9) Prediabetes: Status: Acute (10) Hot flashes due to surgical menopause: Status: Acute (11) Dehydration: Status: Resolved Discharge Plan Disposition Patient Disposition: HOME Condition: Good Discharge Details Chief Complaint: Palpitatns Clinical Impression: Sepsis, Pyelonephritis, Acute hypokalemia, Acute flank pain Reason For Visit: FEVER,NAUSEA,POSSIBLE UROSEPSIS Admit Date/Time: 08/13/19 23:10 Admit Provider: Allen Cherry Attending Provider: Allen Cherry Primary Care Provider: Bartolo Landa ED Provider: Joni Escudero Hospital Course Hospital Course: Ms Briones is a 33 year old female with PMHx of IBS, prediabetes on metformin, DVT during , no longer on anticoagulation, and opioid dependence on methadone therapy through [facility], as well as multiple prior to UTIs, who was admitted to [facility] hospitalist service on 08/13/2019 with suspicion for sepsis of urinary source due to fever, dysuria, and flank pain, suggestive of pyelonephritis. She was started on empiric ceftriaxone. However, her septic workup was negative, to include UA/C&S and blood cultures, and her flank pain resolved as she developed copious diarrhea. The patient did endorse have a recent sick contact as well. She tested negative for C.Diff and has no features of bacterial gastroenteritis/colitis, but does appear to be suffering from a viral gastroenteritis which has already significantly improved. There is also a history of recent URI, suggestive of perhaps adenovirus infection, though testing for this was not deemed to be of clinical benefit. The patient has improved with IV hydration, is tolerating PO, her electrolyte abnormalities have resolved, and her diarrhea has slowed down. She is no longer clinically dehydrated. We are holding her metformin in setting of the acute gastroenteritis - however, the patient does endorse consistent GI side effects of metformin at baseline. We ask that her PCP address whether the patient should resume metformin when she has recovered from her acute viral illness. The patient is stable for discharge home today with prn loperamide and bentyl, but no antibiotics. She should follow up with her PCP within 1 week. Care for patient as well as completion of her discharge summary on day of discharge took 45 minutes. Home Meds and New Rx's Prescriptions: New dicyclomine 10 mg Capsule 10 - 20 mg PO QID PRN PRN (Reason: intestinal spasms/cramps) Qty: 30 RF: 0 loperamide 2 mg Capsule 2 mg PO QLOOSE PRNQty: 30 RF: 0 Continued venlafaxine [Effexor XR] 37.5 MG capsule,extended release 24hr 75 mg PO DAILY RF: 0 venlafaxine [Effexor XR] 37.5 MG capsule,extended release 24hr 150 mg PO DAILY RF: 0 pantoprazole 40 MG tablet,delayed release (DR/EC) 40 mg PO DAILY RF: 0 levothyroxine [Synthroid] 75 MCG tablet 75 mcg PO DAILY RF: 0 albuterol sulfate 8.5 GM HFA aerosol inhaler 2 puff Inhalation QID PRN PRNRF: 0 methylphenidate HCl [Ritalin] 20 MG tablet 20 mg PO TID RF: 0 loratadine [Claritin Liqui-Gel] 10 MG capsule 1 tab PO DAILY RF: 0 methadone 40 mg Tablet,Soluble 80 mg PO RF: 0 estradiol 1 mg Tablet 1 mg BID RF: 0 gabapentin 300 mg Capsule 300 mg PO QID RF: 0 ondansetron 4 mg tablet,disintegrating 4 mg PO TID-QID PRN (Reason: nausea and vomiting) Qty: 20 RF: 0 diclofenac sodium 50 mg tablet,delayed release (DR/EC) 50 mg PO TID PRN (Reason: pain) Qty: 10 RF: 0 Discontinued metformin [Glucophage] 1,000 MG tablet 500 mg PO TID RF: 0 ciprofloxacin HCl [Cipro] 500 mg Tablet 500 mg PO BID RF: 0 Discharge Instructions Instructions: Loperamide (By mouth), Dicyclomine (By mouth), Dehydration (DC), Gastroenteritis (DC), Acute Nausea and Vomiting (DC) Additional Instructions: Return to the hospital with any fever, bleeding, chest pain, shortness of breath, if your diarrhea worsens. Drink plenty of electrolyte-containing fluids such as Gatorade. Follow up with your PCP within 1 week. Referrals: Bartolo Landa NP [Primary Care Provider] - (within 1 week - post hospital admission) Activity:: Activity as Tolerated Equipment/Supplies:: No Equipment Needed Diet:: bland, low acid diet, advance as tolerated Discharge Orders Discharge Orders: Discharge Order (Routine); Ordered 08/15/19 Ordered By: Diane Gonzalez DS: Summary Status at Discharge Functional status at discharge: independent ambulation Overall status at discharge: patient is progressing back to baseline Mental Status: mental status grossly normal Speech and Movement: speech and movement normal Mood: congruent mood Affect: normal affect Exam Narrative Exam Narrative: General: Very pleasant female, A&Ox3, looks better HEENT: EOMI, MMM Heart: RRR Lungs: CTAB Abdomen: soft, distended, nontender Extremities: no e/c/c BLE's Psych Mental Status: mental status grossly normal Speech and Movement: speech and movement normal Mood: congruent mood Affect: normal affect DS: Data Vitals/I&O Vitals and I&O: Vital Signs Temperature 36.0 C L 08/15/19 11:30 Temperature Source Tympanic 08/15/19 11:30 Pulse 75 08/15/19 11:30 Pulse Rhythm Regular 08/15/19 07:30 Pulse 94 H 08/14/19 00:00 Respiratory Rate 18 08/15/19 11:30 Respiratory Effort Non-Labored 08/15/19 07:30 Respiratory Depth Normal 08/15/19 07:30 Respiratory Pattern Normal 08/15/19 07:30 Blood Pressure 107/60 08/15/19 11:30 Blood Pressure Mean 71 08/13/19 23:16 Pulse Oximetry 98 08/15/19 11:30 Oxygen Delivery Method Room Air 08/15/19 11:30 Oxygen Flow Rate 0 08/15/19 11:30 Pain Level 2 08/15/19 11:30 Intake & Output 08/14/19 08/15/19 08/15/19 23:59 11:59 23:59 Intake Total 2920 / 4565 962.5 / 962.5 Output Total 350 / 1250 Balance 2570 / 3315 962.5 / 962.5 Intake: IV 2920 / 3955 962.5 / 962.5 Output: Urine 350 / 1250 Other: Urine Color Yellow Urine Appearance Clear Clear Urine Odor None Comment voids independently Stool Size Small Small Stool Characteristics Liquid Liquid Voiding Methods Toilet Toilet Data Completed and Pending Completed studies during hospitalization [Text1]: CXR: Negative portable chest. Labs on day of discharge: Labs from last 24 hours 08/15/19 08/15/19 06:30 06:30 WBC 4.02 L RBC 3.70 L Hgb 10.5 L Hct 33.0 L MCV 89.2 MCH 28.4 MCHC 31.8 L RDW 13.8 Plt Count 183 MPV 11.7 H Immature Gran % 0.2 Neutrophils % 30.6 Lymphocytes % 54.0 Monocytes % 9.0 Eosinophils % 5.5 Basophils % 0.7 Absolute Neutrophils 1.23 Absolute Lymphocytes 2.17 Absolute Monocytes 0.36 Absolute Eosinophils 0.22 Absolute Basophils 0.03 Sodium 140 Potassium 4.5 Chloride 106 Carbon Dioxide 26.5 Anion Gap 7.5 BUN 6 L Creatinine 0.46 L Estimated GFR/1.73 m2 >= 60.00 Glucose 98 Calcium 7.8 L Magnesium 1.8 Preliminary micro results at discharge 08/13/19 20:00 Blood Culture - Preliminary Blood NO GROWTH 24 HOURS 08/13/19 20:10 Blood Culture - Preliminary Blood NO GROWTH 24 HOURS [facility] Medical History (Updated 08/15/19 @ 12:12 by Diane Gonzalez MD) deep vein thrombosis with complication Depression Hot flashes due to surgical menopause (Acute) Impaired glucose tolerance during . HgbA1c have been normal. Irritable colon Long-term current use of methadone for opiate dependence (Acute) Menorrhagia 12/2012 continued bleeding after PP endometritis. No response to abx/Norethindrone. Nl imaging studies. 06/23/13 hysteroscopy, D+C and Mirena IUD insertion. 11/2013 Pt had laparotomy for supracervical hysterectomy at [facility]. Positive urine drug screen 03/19/16 for Codeine and Morphine at time of admission for gastroenteritis. Prediabetes (Acute) Subclinical hypothyroidism during 3rd . Surgical History section 08/06/2006 PCD arrest of descent 11/27/2007 RCD with BTL 11/12/2012 Repeat CD at term [facility]. Uterine atony immediately post op Office EMBx 01/11/13 @ [facility] c/w chronic endometritis. 11/13 Admitted to [facility] with fever and pelvic pain s/p IV abx x3day Dilation and curettage (06/23/13) diagnostic hysteroscopy with insertion of Mirena IUD. Benign pathology. No endometritis or adenomyosis Hysterectomy, Laproscopic November 2013 [facility] converted to supracervical hysterectomy at [facility]. Ligation of fallopian tube (11/27/07) RCD with bilateral fimbriectomy. Sigmoidoscopy Social History Smoking/Tobacco Use Status: Never Alcohol Intake: current Alcohol Intake frequency: a few times a month Alcohol type: wine Drug use: Never Substance use type: does not use Do you feel safe at home: Yes Do you feel safe in your relationship?: Yes
--- NOTE | 2019-08-15 17:54 | PDOC.CMDIS ---
- If Service Date Differs Date of service: 08/15/19 Time of Service: 17:54 LACE Index Scoring Tool - Questions: Length of Stay (in days): 3 Acuity (Admit via E.D.?): Yes E.D. Visits: 8 - Answers: Total Score: 10 Risk of Readmission: High Risk Care Management Discharge Reason for Hospitalization: Fever, nausea, possible Urosepsis Discharge Plan: Kaia will return home with no additional services at this time. She will follow up with her PCP and discharge plan of care. CRISTIAN offered Kaia a 'last dose' letter to provide to [facility]ERV[facility], which she accepted. Her will drive her home via private vehicle. She is agreeable to the plan. Patient/Family Education Needs: Review discharge instructions regarding activity levels and medications, discussion of self care needs including ask me three
== END 2019-08-15 15:07 | disposition home or self-care (01) | DRG 392 ==
LOC: ER 23:42 → MS 08-14 00:21
PROVIDERS: Internal Medicine; Admitting Provider Internal Medicine; Emergency Provider Student in an Organized Health Care Education/Training Program; PCP Nurse Practitioner Family; Visit Provider Internal Medicine
DX: A08.4 Viral intestinal infection, unspecified (principal); F11.20 Opioid dependence, uncomplicated; R73.03 Prediabetes; Z79.84 Long term (current) use of oral hypoglycemic drugs; K58.9 Irritable bowel syndrome, unspecified; Z86.718 Personal history of other venous thrombosis and embolism; Z87.440 Personal history of urinary (tract) infections; E86.0 Dehydration; R30.0 Dysuria; E87.6 Hypokalemia; E03.9 Hypothyroidism, unspecified; M79.7 Fibromyalgia; E89.41 Symptomatic postprocedural ovarian failure
CPT/HCPCS: 36415; 80048; 80053; 80307; 83690; 84145; 85027; 87040; 87449; 93005; 96361; 96365; 96366; 96368; 96375; 96376; 99222; 99232; 99239; 99285; J1650; 71045; 81003; 81015; 83605; 83735; 84443; 84484; 85025; 85379; 85610; 85730; 87086; 87324; 93010; J0696; J1885; J2405; J3480

== ENCOUNTER 2019-12-01 10:59 | Outpatient (CLI) | payer MEDICAID, SELFPAY ==
[2019-12-02 09:22] LABS: Hepatitis B Surface Ag Negative (Negative)
[2019-12-02 09:51] LABS: HIV-1/2 Ag & Ab Screen Negative (Negative)
[2019-12-02 10:09] LABS: Hepatitis C Ab w Rflx HCV PCR Negative (Negative)
[2019-12-02 14:48] LABS: Syphilis Total Ab w/Reflex Nonreactive (Nonreactive)
== END 2019-12-01 11:19 ==
PROVIDERS: PCP Nurse Practitioner Family; Visit Provider Nurse Practitioner Women's Health
DX: N89.8 Other specified noninflammatory disorders of vagina (principal); Z11.3 Encounter for screening for infections with a predominantly sexual mode of transmission
CPT/HCPCS: 36415; 86803; 87340; 87389; 86780; 87480; 87510; 87660

== ENCOUNTER 2019-12-01 11:40 | Outpatient (REF) | payer MEDICAID, SELFPAY ==
--- NOTE | 2019-12-01 10:45 | PAPFT_PTH ---
PATIENT: Kaia Briones LOC: [facility] U#:[id number] AGE/SX: 34/F ROOM: RE12/01/[address]: Michelle Peoples NP : [id number] BED: DIS: 12/01/2019 SPEC #: [id number] RECD: 12/01/19 14:56 STATUS: SHERLY REQ #: [id number] TINA: 12/01/19 10:[address]: Michelle Peoples NP DEPT: [facility] Cytology RECD BY: Edith Galindo ENTERED: 12/01/19 14:56 SP TYPE: PAPFT OTHR DR: Bartolo Landa Tissues: 1 - CX/ENDOCX FOR PAP SMEARS Procedures: PAP THIN PREP/UVM Screening HPV DNA PROBE Comments: [id number] (CHLAMYDIA/GC)
[2019-12-02 13:34] LABS: Chlamydia Result Negative (Negative); GC Result Negative (Negative)
== END 2019-12-01 12:00 ==
LOC: LBN 11:40
PROVIDERS: PCP Nurse Practitioner Family; Visit Provider Nurse Practitioner Women's Health
DX: Z11.3 Encounter for screening for infections with a predominantly sexual mode of transmission (principal); Z12.4 Encounter for screening for malignant neoplasm of cervix
CPT/HCPCS: 87491; 87591; 88142; 87624

== ENCOUNTER 2020-03-22 15:26 | Emergency (ER) | payer MEDICAID, SELFPAY ==
[2020-03-22 15:29] VITALS: BP 101/59; PULSE 81; RESP 20; TEMP 36.3; O2SAT 100
[2020-03-22] MEDS: Normal Saline 1,000 ML 1000 ML IV ×2 (15:46→16:27)
--- NOTE | 2020-03-22 15:51 | W.ED.GENAD ---
Discharge Plan Disposition Patient Disposition: HOME Condition: Stable Discharge Details Clinical Impression: Nausea & vomiting, Abdominal pain Primary Care Provider: Bartolo Landa ED Provider: Vito Chiang Home Meds and New Rx's Prescriptions: New metoclopramide HCl [Reglan] 10 mg tablet 10 mg PO Q6H PRNQty: 10 RF: 0 Continued venlafaxine [Effexor XR] 37.5 MG capsule,extended release 24hr 75 mg PO DAILY RF: 0 venlafaxine [Effexor XR] 37.5 MG capsule,extended release 24hr 150 mg PO DAILY RF: 0 pantoprazole 40 MG tablet,delayed release (DR/EC) 40 mg PO DAILY RF: 0 levothyroxine [Synthroid] 75 MCG tablet 75 mcg PO DAILY RF: 0 albuterol sulfate 8.5 GM HFA aerosol inhaler 2 puff Inhalation QID PRN PRNRF: 0 methylphenidate HCl [Ritalin] 20 MG tablet 20 mg PO TID RF: 0 loratadine [Claritin Liqui-Gel] 10 MG capsule 1 tab PO DAILY RF: 0 methadone 40 mg Tablet,Soluble 80 mg PO DAILY RF: 0 estradiol 1 mg Tablet 1 mg BID RF: 0 gabapentin 300 mg Capsule 300 mg PO QID RF: 0 dicyclomine 10 mg Capsule 10 - 20 mg PO QID PRN PRN (Reason: intestinal spasms/cramps) Qty: 30 RF: 0 loperamide 2 mg Capsule 2 mg PO QLOOSE PRNQty: 30 RF: 0 ondansetron 4 mg tablet,disintegrating 4 mg PO TID-QID PRN (Reason: nausea and vomiting) Qty: 20 RF: 0 diclofenac sodium 50 mg tablet,delayed release (DR/EC) 50 mg PO TID PRN (Reason: pain) Qty: 10 RF: 0 Discharge Instructions Instructions: Acute Nausea and Vomiting (ED), Abdominal Pain (ED) Additional Instructions: Reglan as directed. [id number] Mylanta as directed. Clear liquid diet, advance as tolerated. Please watch for new or worsening symptoms and return to the ER for any concerns. I do recommend reaching out to your primary care provider tomorrow for prompt outpatient reevaluation. Discharge Data Discharge Date/Time-TO BE ENTERED AT DEPARTURE: 03/22/20 18:50 Medical Decision Making <Echo Owen - Last Filed: 03/23/20 08:53> 34-year-old female presents with chief complaint of nausea vomiting which began at 1:00 this afternoon. She states that she is unable to keep anything down. Associated symptoms include left mid and upper abdominal pain. Patient is on methadone and was unable to take her medication today due to the vomiting. She does report some soft stool but she had just a little stool output earlier today. Denies any fever, hematochezia met emesis, dysuria or any other symptoms. She does have a surgical history of hysterectomy, cholecystectomy, ureteral stents, past medical history includes hypothyroidism, fibromyalgia, chronic low back pain, OCD. She received 4 mg of Zofran ODT by EMS prior to arrival which she reports did little for her symptoms. Differential diagnosis includes bowel obstruction, gastroenteritis, methadone withdrawal, UTI, pyelonephritis. Labs at this time are pending, will give Phenergan 12 and half milligrams IV piggyback and 1 L normal saline, care is to be handed off to oncoming provider RALPH Núñez pending labs and disposition. <RALPH Pierre - Last Filed: 03/22/20 19:06> I received signout of this 34-year-old female from my colleague KYM Owen. Patient developed nausea, vomiting, epigastric discomfort that began late last night early this morning. She denies recent illness, travel, bad food exposure or sick contacts. Prior to my evaluation laboratory values pending. She is receiving 1 L IV fluid and has already been given Zofran and Phenergan. I will add on a lipase as well. Upon evaluation she appears well, nontoxic. Moist mucous membranes, head normal cephalic, heart regular rate and rhythm, lungs clear to auscultation, abdomen is soft, without rigidity, rebound or guarding. Normal bowel sounds. There is mild left upper quadrant and epigastric discomfort to moderate palpation. We will give a second liter of IV fluid, she reports nausea is improving but still present and her pain is unchanged. We will give Reglan IV and a combo Mylanta-lidocaine p.o. Upon reevaluation she remains afebrile. Heart rate 89. Blood pressure 117/75. She is using her cell phone without difficulty. Laboratory values reveal a white blood cell count of 10.01 hematocrit 40.7 hemoglobin 12.9 platelet count 233. Sodium 135 potassium 3.8, creatinine 0.67 with a GFR greater than 60. Glucose 124. Calcium 9.2 magnesium 1.9, LFTs unremarkable. Urinalysis unremarkable. Lipase 46 Upon reevaluation we discussed her benign laboratory values here in the ER. She reports that the Reglan has greatly helped her nausea and that the GI cocktail has essentially resolved her pain. She will be p.o. challenged. Patient able to tolerate crackers and earnestine marely without difficulty. Patient appears well, nontoxic, nonsurgical abdominal examination. At this time I feel as though a diagnosis of gastritis, gastroenteritis, etc. is reasonable. We discussed options. Will provide a prescription for Reglan, she will use [id number] Mylanta, and will initiate clear liquid diet, advancing as tolerated. Patient was encouraged to return to the ER for new or worsening symptoms. Upon discharge patient is comfortable with this plan and has no additional questions or concerns. Medical Records Medical records reviewed: Yes I reviewed the patient's medical records. Lab Data Lab results reviewed: Yes I reviewed the patient's lab results. Lab results narrative: Laboratory Tests Range/Units 03/22/20 03/22/20 03/22/20 15:45 15:45 15:45 WBC (4.4-10.8) 10^3/uL 10.01 RBC (3.93-5.22) 10^6/uL 4.52 Hgb (11.2-15.7) g/dL 12.9 Hct (36.0-46.0) % 40.7 MCV (80-95) fL 90.0 MCH (27.0-33.0) pg 28.5 MCHC (32.0-36.0) % 31.7 L RDW (11.7-14.6) % 13.2 Plt Count (130-400) 10^3/uL 233 MPV (8.0-11.0) fL 11.7 H Immature Gran % 0.2 Neutrophils % 79.8 Lymphocytes % 16.3 Monocytes % 2.9 Eosinophils % 0.4 Basophils % 0.4 Nucleated RBC % % 0 Absolute Neutrophils (1.2-6.7) 10^3/uL 7.99 H Absolute Lymphocytes (1.2-3.4) 10^3/uL 1.63 Absolute Monocytes (0.1-0.8) 10^3/uL 0.29 Absolute Eosinophils (0.0-0.7) 10^3/uL 0.04 Absolute Basophils (0.0-0.2) 10^3/uL 0.04 Sodium (136-145) mmol/L 135 L Potassium (3.5-5.1) mmol/L 3.8 Chloride (98-107) mmol/L 98 Carbon Dioxide (21.0-32.0) mmol/L 28.6 Anion Gap (3-11) mmol/L 8.4 BUN (7-18) mg/dL 8 Creatinine (0.55-1.02) mg/dL 0.67 Estimated GFR/1.73 m2 (mL/min/1.73m2) >= 60.00 Glucose (74-106) mg/dL 124 H Calcium (8.5-10.1) mg/dL 9.2 Magnesium (1.8-2.4) mg/dL 1.9 Total Bilirubin (0.2-1.0) mg/dL 0.2 AST (15-37) U/L 24 ALT (14-59) U/L 19 Alkaline Phosphatase (46-116) U/L 97 Total Protein (6.4-8.2) g/dL 8.0 Albumin (3.4-5.0) g/dL 3.8 Lipase (73-393) U/L 46 Urine Color (Yellow) Urine Clarity (Clear) Urine pH (5-8) Ur Specific Irene (1.005-1.025) Urine Protein (Negative) mg/dL Urine Ketones (Negative) mg/dL Urine Blood (Negative) Urine Nitrite (Negative) Urine Bilirubin (Negative) Urine Urobilinogen (Up TO 0.2) EU/dL Ur Leukocyte Esterase (Negative) Urine Glucose (Negative) mg/dL Range/Units 03/22/20 17:10 WBC (4.4-10.8) 10^3/uL RBC (3.93-5.22) 10^6/uL Hgb (11.2-15.7) g/dL Hct (36.0-46.0) % MCV (80-95) fL MCH (27.0-33.0) pg MCHC (32.0-36.0) % RDW (11.7-14.6) % Plt Count (130-400) 10^3/uL MPV (8.0-11.0) fL Immature Gran % Neutrophils % Lymphocytes % Monocytes % Eosinophils % Basophils % Nucleated RBC % % Absolute Neutrophils (1.2-6.7) 10^3/uL Absolute Lymphocytes (1.2-3.4) 10^3/uL Absolute Monocytes (0.1-0.8) 10^3/uL Absolute Eosinophils (0.0-0.7) 10^3/uL Absolute Basophils (0.0-0.2) 10^3/uL Sodium (136-145) mmol/L Potassium (3.5-5.1) mmol/L Chloride (98-107) mmol/L Carbon Dioxide (21.0-32.0) mmol/L Anion Gap (3-11) mmol/L BUN (7-18) mg/dL Creatinine (0.55-1.02) mg/dL Estimated GFR/1.73 m2 (mL/min/1.73m2) Glucose (74-106) mg/dL Calcium (8.5-10.1) mg/dL Magnesium (1.8-2.4) mg/dL Total Bilirubin (0.2-1.0) mg/dL AST (15-37) U/L ALT (14-59) U/L Alkaline Phosphatase (46-116) U/L Total Protein (6.4-8.2) g/dL Albumin (3.4-5.0) g/dL Lipase (73-393) U/L Urine Color (Yellow) Yellow Urine Clarity (Clear) Clear Urine pH (5-8) 8.0 Ur Specific Irene (1.005-1.025) 1.015 Urine Protein (Negative) mg/dL Negative Urine Ketones (Negative) mg/dL Negative Urine Blood (Negative) Negative Urine Nitrite (Negative) Negative Urine Bilirubin (Negative) Negative Urine Urobilinogen (Up TO 0.2) EU/dL 0.2 Ur Leukocyte Esterase (Negative) Negative Urine Glucose (Negative) mg/dL Negative HPI <Echo Owen - Last Filed: 03/23/20 08:53> General Mode of arrival: EMS. Date/Time Provider Initiated Documentation: 03/22/20 15:30. Limitations to Documentation: no limitations. Information obtained by: patient and EMS. HPI Narrative: 34-year-old female presents with chief complaint of nausea vomiting which began at 1:00 this afternoon. She states that she is unable to keep anything down. Associated symptoms include left mid and upper abdominal pain. Patient is on methadone and was unable to take her medication today due to the vomiting. She does report some soft stool but she had just a little stool output earlier today. Denies any fever, hematochezia met emesis, dysuria or any other symptoms. She does have a surgical history of hysterectomy, cholecystectomy, ureteral stents, past medical history includes hypothyroidism, fibromyalgia, chronic low back pain, OCD. She received 4 mg of Zofran ODT by EMS prior to arrival which she reports did little for her symptoms. Related Data Home Medications Medication Instructions Recorded Confirmed pantoprazole 40 mg PO DAILY 03/19/13 03/22/20 levothyroxine [Synthroid] 75 mcg PO DAILY 06/23/13 03/22/20 albuterol sulfate 2 puff INHALATION QID PRN PRN 08/31/14 03/22/20 venlafaxine [Effexor XR] 75 mg PO DAILY tab-cap 07/26/16 03/22/20 venlafaxine [Effexor XR] 150 mg PO DAILY tab-cap 07/26/16 03/22/20 loratadine [Claritin Liqui-Gel] 1 tab PO DAILY 03/18/17 03/22/20 methylphenidate HCl [Ritalin] 20 mg PO TID 03/18/17 03/22/20 diclofenac sodium 50 mg PO TID PRN #10 tab 12/16/18 03/22/20 estradiol 1 mg BID 08/13/19 12/01/19 gabapentin 300 mg PO QID 08/13/19 03/22/20 methadone 80 mg PO DAILY 08/13/19 03/22/20 dicyclomine 10 - 20 mg PO QID PRN PRN #30 cap 08/15/19 03/22/20 loperamide 2 mg PO QLOOSE PRN #30 cap 08/15/19 03/22/20 ondansetron 4 mg PO TID-QID PRN #20 tab 08/15/19 03/22/20 metoclopramide HCl [Reglan] 10 mg PO Q6H PRN #10 tab 03/22/20 Previous Rx's Medication Instructions Recorded diclofenac sodium 50 mg PO TID PRN #10 tab 12/16/18 dicyclomine 10 - 20 mg PO QID PRN PRN #30 cap 08/15/19 loperamide 2 mg PO QLOOSE PRN #30 cap 08/15/19 ondansetron 4 mg PO TID-QID PRN #20 tab 08/15/19 metoclopramide HCl [Reglan] 10 mg PO Q6H PRN #10 tab 03/22/20 Allergies Allergy/AdvReac Type Severity Reaction Status Date / Time Sulfa (Sulfonamide Allergy rash/vomiti Unverified 03/22/20 18:46 Antibiotics) ng ibuprofen AdvReac Psychosis Unverified 03/22/20 18:46 prednisone AdvReac flashes of Unverified 03/22/20 18:46 light/feels drunk General Stated Complaint: Nausea/Vomit/Diar TANA: 3 Review of Systems <Echo Owen - Last Filed: 03/23/20 08:53> Narrative: Constitutional: Negative for weight loss, alert and oriented, well groomed, thin body habitus, appears comfortable. HEENT: Denies trauma, headaches, blurry vision, nasal discharge, sore throat, trouble swallowing. Chest: Denies chest pain, palpitations, irregular rhythm, hypertension. Respiratory: Denies Shortness of breath, cough, hemoptysis. GI: Denies constipation. Positive abdominal pain nausea vomiting and loose stools. : Denies dysuria, hematuria, flank pain, rectal bleeding. Neuro: Denies dizziness, blurry vision, weakness, syncope, headache or facial numbness. Hematologic: Denies easy bruising, intolerance to heat or cold, hair loss. PFSH <Echo Owen - Last Filed: 03/23/20 08:53> Medical History deep vein thrombosis with complication Depression Hot flashes due to surgical menopause Impaired glucose tolerance during . HgbA1c have been normal. Irritable colon Long-term current use of methadone for opiate dependence Menorrhagia 12/2012 continued bleeding after PP endometritis. No response to abx/Norethindrone. Nl imaging studies. 06/23/13 hysteroscopy, D+C and Mirena IUD insertion. 11/2013 Pt had laparotomy for supracervical hysterectomy at [facility]. Positive urine drug screen 03/19/16 for Codeine and Morphine at time of admission for gastroenteritis. Prediabetes Subclinical hypothyroidism during 3rd . Surgical History section 08/06/2006 PCD arrest of descent 11/27/2007 RCD with BTL 11/12/2012 Repeat CD at term [facility]. Uterine atony immediately post op Office EMBx 01/11/13 @ [facility] c/w chronic endometritis. 11/13 Admitted to [facility] with fever and pelvic pain s/p IV abx x3day Dilation and curettage (06/23/13) diagnostic hysteroscopy with insertion of Mirena IUD. Benign pathology. No endometritis or adenomyosis Hysterectomy, Laproscopic November 2013 H converted to supracervical hysterectomy at [facility]. Ligation of fallopian tube (11/27/07) RCD with bilateral fimbriectomy. Sigmoidoscopy Family History Father Diabetes Heart disease father 50yo from heart failure. Hyperlipidemia Grandmother Diabetes paternal uncle Mental disorder drug use and eventually suicide Social History Smoking/Tobacco Use Status: Never Alcohol Intake: current Alcohol Intake frequency: a few times a month Alcohol type: wine Drug use: Current Sobriety Substance use type: does not use Details: methadone clinic Do you feel safe at home: Yes Do you feel safe in your relationship?: Yes Exam <Echo Owen - Last Filed: 03/23/20 08:53> Narrative Exam Narrative: Constitutional: Alert and oriented x3. Appears stated age. Normal body habitus. Head: Normocephalic, no trauma. Eyes: Pupils PERRLA, Red reflex noted, EOM's intact. Eyelids symmetrical without lesions, discharge, or swelling. ENT: Bilateral TM's WNL, External ear normal to inspection, no mastoid TTP, swelling, or erythema, Nasal turbinates WNL, no nasal discharge. Normal dentition, Posterior pharynx WNL, no exudate. Chest: RRR, Normal S1, S2, distal pulses intact. Resp: Lungs clear to auscultation bilaterally, no wheezes, rales, or rhonchi. Musculoskeletal: Normal gait, 5/5 strength to all four extremities. Abdomen: Soft, tender to palpation left upper quadrant and midepigastric tenderness. Skin: No suspicious rashes or lesions. Capillary refill less than 2 sec. Neurologic: Cranial nerves II-XII intact. Alert and oriented x 3. DTR's intact. Hematologic/Lymphatic: No ecchymosis, no lymphadenopathy. Course <Echo Owen - Last Filed: 03/23/20 08:53> Vital Signs Vital signs: Vital Signs Temperature 36.3 C L 03/22/20 15:29 Pulse 81 03/22/20 15:29 Respiratory Rate 20 03/22/20 15:29 Blood Pressure 101/59 L 03/22/20 15:29 Pulse Oximetry 100 03/22/20 15:29 Temperature 36.3 C L 03/22/20 15:29 Temperature Source Temporal Artery Scan 03/22/20 15:29 Pulse 81 03/22/20 15:29 Respiratory Rate 20 03/22/20 15:29 Respiratory Effort Non-Labored 03/22/20 15:32 Blood Pressure 101/59 L 03/22/20 15:29 Blood Pressure Position Supine 03/22/20 15:29 Pulse Oximetry 100 03/22/20 15:29 Oxygen Delivery Method Room Air 03/22/20 15:29 Oxygen Flow Rate 0 03/22/20 15:29 Pain Level 7 03/22/20 15:29 Sign Out <Echo wOen - Last Filed: 03/23/20 08:53> Sign Out Data: Sign Out Comment: Pending labs Last updated by Echo Owen at 03/22/20 16:02
[2020-03-22 15:53] LABS: Abs Immature Grans 0.02 10^3/uL (0.0-0.06); Absolute Basophil Count 0.04 10^3/uL (0.0-0.2); Absolute Eosinophil Count 0.04 10^3/uL (0.0-0.7); Absolute Lymphocyte Count 1.63 10^3/uL (1.2-3.4); Absolute Monocyte Count 0.29 10^3/uL (0.1-0.8); Absolute Neutrophil Count 7.99 10^3/uL (1.2-6.7); Basophils % 0.4; Eosinophils % 0.4; HCT 40.7 % (36.0-46.0); HGB 12.9 g/dL (11.2-15.7); Immature Grans % 0.2; Lymphocytes % 16.3; MCH 28.5 pg (27.0-33.0); MCHC 31.7 % (32.0-36.0); MPV 11.7 fL (8.0-11.0); Monocytes % 2.9; Neutrophils % 79.8; Nucleated RBC 0 %; Platelet Count 233 10^3/uL (130-400); RBC 4.52 10^6/uL (3.93-5.22); RDW 13.2 % (11.7-14.6); RDW-SD 43.5 fL; WBC 10.01 10^3/uL (4.4-10.8)
[2020-03-22 16:14] LABS: ALT 19 U/L (14-59); AST 24 U/L (15-37); Albumin 3.8 g/dL (3.4-5.0); Alkaline Phosphatase 97 U/L (46-116); Anion Gap 8.4 mmol/L (3-11); BUN 8 mg/dL (7-18); Bilirubin, Total 0.2 mg/dL (0.2-1.0); CO2 28.6 mmol/L (21.0-32.0); CREATININE 0.67 mg/dL (0.55-1.02); Calcium 9.2 mg/dL (8.5-10.1); Chloride 98 mmol/L (98-107); Glucose 124 mg/dL (74-106); Magnesium 1.9 mg/dL (1.8-2.4); Potassium 3.8 mmol/L (3.5-5.1); Sodium 135 mmol/L (136-145)
[2020-03-22 17:17] LABS: Bilirubin Negative (Negative); Blood Negative (Negative); Clarity Clear (Clear); Glucose Negative (Negative); Ketones Negative (Negative); Leukocyte Esterase Negative (Negative); Nitrite Negative (Negative); Specific Gravity 1.015 (1.005-1.025); Urobilinogen 0.2 EU/dL (Up TO 0.2)
[2020-03-22 17:32] LABS: Lipase 46 U/L (73-393)
[2020-03-22] MEDS: Metoclopramide 10 MG/2 ML VIAL IVP (17:36)
[2020-03-22 18:35] VITALS: BP 117/75; PULSE 89; RESP 16; TEMP 37.1; O2SAT 96
== END 2020-03-22 18:50 | disposition home or self-care (01) ==
PROVIDERS: Registered Nurse Emergency; Emergency Provider Physician Assistant; PCP Nurse Practitioner Family
DX: R11.2 Nausea with vomiting, unspecified (principal); R10.13 Epigastric pain; R10.12 Left upper quadrant pain
CPT/HCPCS: 36415; 80053; 83690; 96361; 96365; 96375; 99284; 81003; 83735; 85025; J2765

== ENCOUNTER 2021-10-21 10:44 | Emergency (ER) | payer MEDICAID, SELFPAY ==
[2021-10-21 10:59] VITALS: BP 117/72; PULSE 95; RESP 17; TEMP 37.1; O2SAT 100
--- NOTE | 2021-10-21 12:14 | W.ED.GENAD ---
Discharge Plan Disposition Patient Disposition: HOME Condition: Stable Discharge Details Clinical Impression: Abscess, dental Primary Care Provider: Bartolo Landa ED Provider: Edith Back Home Meds and New Rx's Prescriptions: New clindamycin HCl 150 mg capsule 450 mg PO TID Qty: 90 0RF Continued venlafaxine [Effexor XR] 37.5 MG capsule,extended release 24hr 75 mg PO DAILY 0RF Rx Instructions: Takes w/150mg capsule venlafaxine [Effexor XR] 37.5 MG capsule,extended release 24hr 150 mg PO DAILY 0RF acyclovir 800 mg tablet 800 mg PO BID PRN (Reason: herpes) 5 Days Qty: 10 2RF pantoprazole 40 MG tablet,delayed release (DR/EC) 40 mg PO DAILY 0RF levothyroxine [Synthroid] 75 MCG tablet 75 mcg PO DAILY 0RF albuterol sulfate 8.5 GM HFA aerosol inhaler 2 puff Inhalation QID PRN PRN0RF Label Comments: 6 months ago methylphenidate HCl [Ritalin] 20 MG tablet 20 mg PO TID 0RF loratadine [Claritin Liqui-Gel] 10 MG capsule 1 tab PO DAILY 0RF methadone 40 mg Tablet,Soluble 80 mg PO DAILY 0RF estradiol 1 mg Tablet 1 mg BID 0RF gabapentin 300 mg Capsule 300 mg PO QID 0RF dicyclomine 10 mg Capsule 10 - 20 mg PO QID PRN PRN (Reason: intestinal spasms/cramps) Qty: 30 0RF loperamide 2 mg Capsule 2 mg PO QLOOSE PRNQty: 30 0RF ondansetron 4 mg tablet,disintegrating 4 mg PO TID-QID PRN (Reason: nausea and vomiting) Qty: 20 0RF diclofenac sodium 50 mg tablet,delayed release (DR/EC) 50 mg PO TID PRN (Reason: pain) Qty: 10 0RF metoclopramide HCl [Reglan] 10 mg tablet 10 mg PO Q6H PRNQty: 10 0RF buprenorphine-naloxone [Suboxone] 8-2 mg film 0RF Label Comments: Place 1 film under tongue twice a day through Sun, prescribed by Dr. Diallo Discharge Data Discharge Date/Time-TO BE ENTERED AT DEPARTURE: 10/21/21 12:32 Medical Decision Making Inferior alveolar dental block applied with pressure relief in symptoms Given several tablets of oxycodone, confirmed the patient is not on methadone and discussed risk associated with addiction Placed on clindamycin Patient has been tested and will follow up with them in the outpatient setting No evidence of Don's angina Return precautions discussed and patient expressed understanding Medical Records Medical records reviewed: Yes I reviewed the patient's medical records. Lab Data Lab results reviewed: Yes I reviewed the patient's lab results. HPI General Date/Time Provider Initiated Documentation: 10/21/21 11:13. HPI Narrative: This 36-year-old female presents with right sided lower dental pain which started 4 days ago. She has a fracture to the affected tooth. She has not facial swelling reportedly. She denies any fever or chills. She denies any difficulty swallowing or chance of . Related Data Home Medications Medication Instructions Recorded Confirmed pantoprazole 40 mg tablet,delayed 40 mg PO DAILY 03/19/13 10/21/21 release levothyroxine 75 mcg tablet 75 mcg PO DAILY 06/23/13 10/21/21 (Synthroid) albuterol sulfate 90 mcg/actuation 2 puff INHALATION QID PRN PRN 08/31/14 10/21/21 aerosol inhaler venlafaxine 37.5 mg 75 mg PO DAILY tab-cap 07/26/16 03/22/20 capsule,extended release 24 hr (Effexor XR) venlafaxine 37.5 mg 150 mg PO DAILY tab-cap 07/26/16 03/22/20 capsule,extended release 24 hr (Effexor XR) loratadine 10 mg capsule (Claritin 1 tab PO DAILY 03/18/17 10/21/21 Liqui-Gel) methylphenidate HCl 20 mg tablet 20 mg PO TID 03/18/17 10/21/21 (Ritalin) diclofenac sodium 50 mg 50 mg PO TID PRN #10 tab 12/16/18 10/21/21 tablet,delayed release estradiol 1 mg tablet 1 mg BID 08/13/19 10/21/21 gabapentin 300 mg capsule 300 mg PO QID 08/13/19 10/21/21 methadone 40 mg soluble tablet 80 mg PO DAILY 08/13/19 03/22/20 dicyclomine 10 mg capsule 10 - 20 mg PO QID PRN PRN #30 cap 08/15/19 10/21/21 loperamide 2 mg capsule 2 mg PO QLOOSE PRN #30 cap 08/15/19 10/21/21 ondansetron 4 mg disintegrating 4 mg PO TID-QID PRN #20 tab 08/15/19 10/21/21 tablet metoclopramide HCl 10 mg tablet 10 mg PO Q6H PRN #10 tab 03/22/20 10/21/21 (Reglan) acyclovir 800 mg tablet 800 mg PO BID PRN 5 Days #10 tab 08/28/20 buprenorphine 8 mg-naloxone 2 mg film 10/21/21 10/21/21 sublingual film (Suboxone) clindamycin HCl 150 mg capsule 450 mg PO TID #90 cap 10/21/21 Previous Rx's Medication Instructions Recorded diclofenac sodium 50 mg 50 mg PO TID PRN #10 tab 12/16/18 tablet,delayed release dicyclomine 10 mg capsule 10 - 20 mg PO QID PRN PRN #30 cap 08/15/19 loperamide 2 mg capsule 2 mg PO QLOOSE PRN #30 cap 08/15/19 ondansetron 4 mg disintegrating 4 mg PO TID-QID PRN #20 tab 08/15/19 tablet metoclopramide HCl 10 mg tablet 10 mg PO Q6H PRN #10 tab 03/22/20 (Reglan) acyclovir 800 mg tablet 800 mg PO BID PRN 5 Days #10 tab 08/28/20 clindamycin HCl 150 mg capsule 450 mg PO TID #90 cap 10/21/21 Allergies Allergy/AdvReac Type Severity Reaction Status Date / Time Sulfa (Sulfonamide Allergy rash/vomiti Unverified 03/22/20 18:46 Antibiotics) ng ibuprofen AdvReac Psychosis Unverified 03/22/20 18:46 prednisone AdvReac flashes of Unverified 03/22/20 18:46 light/feels drunk General Stated Complaint: DentalOral TANA: 4 Review of Systems All systems reviewed & are unremarkable except as noted in HPI and below PFSH All Active Problems (Updated 10/21/21 @ 12:22 by RALPH Doe) Abscess, dental (Acute) Screening for STD (sexually transmitted disease) (Acute) Discharge planning issues (Acute) DVT prophylaxis (Acute) Viral gastroenteritis (Acute) Hot flashes due to surgical menopause (Acute) Prediabetes (Acute) Long-term current use of methadone for opiate dependence (Acute) Vomiting (Acute) Fever (Acute) Pyelonephritis (Acute) Acute tonsillitis (Acute 05/31/13) deep vein thrombosis with complication (Acute 04/07/13) received Lovenox during her pregnancies. Bleeding of cervix (Acute 05/03/16) s/p supracervical hysterectomy 2013. Has spotting. Blood glucose abnormal (Acute 03/16/13) Candidal vulvovaginitis (Acute 08/27/13) Choking sensation (Acute 08/30/13) Chronic low back pain without sciatica (Acute 05/03/16) Neg MRI, neg neuro w/u. Most likely neuroskeletal in origin. Chronic pelvic pain in female (Acute 04/14/13) Dysmenorrhea (Acute 06/21/13) Endometriosis (Acute 05/23/16) Fibromyalgia (Acute 05/23/16) Flank pain (Acute 05/23/16) GDM (gestational diabetes mellitus), class A1 (Acute 05/03/16) with previous pregnancies. Random HgbA1c have been normal. 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 Restless leg syndrome (Acute 05/23/16) Disorder of sacrum (Acute) Chronic pain (Acute) Fibromyalgia (Acute) Gastroenteritis due to Cryptosporidium (Acute) Diarrhea with dehydration (Acute) Hypokalemia (Acute) Medical History deep vein thrombosis with complication Depression Hot flashes due to surgical menopause Impaired glucose tolerance during . HgbA1c have been normal. Irritable colon Long-term current use of methadone for opiate dependence Menorrhagia 12/2012 continued bleeding after PP endometritis. No response to abx/Norethindrone. Nl imaging studies. 06/23/13 hysteroscopy, D+C and Mirena IUD insertion. 11/2013 Pt had laparotomy for supracervical hysterectomy at [facility] [place]. Positive urine drug screen 03/19/16 for Codeine and Morphine at time of admission for gastroenteritis. Prediabetes Subclinical hypothyroidism during 3rd . Surgical History section 08/06/2006 PCD arrest of descent 11/27/2007 RCD with BTL 11/12/2012 Repeat CD at term [facility] [place]. Uterine atony immediately post op Office EMBx 01/11/13 @ [facility] [place] c/w chronic endometritis. 11/13 Admitted to [facility] [place] with fever and pelvic pain s/p IV abx x3day Dilation and curettage (06/23/13) diagnostic hysteroscopy with insertion of Mirena IUD. Benign pathology. No endometritis or adenomyosis Hysterectomy, Laproscopic November 2013 [facility] converted to supracervical hysterectomy at [facility] [place]. Ligation of fallopian tube (11/27/07) RCD with bilateral fimbriectomy. Sigmoidoscopy Family History Father Diabetes Heart disease father 50yo from heart failure. Hyperlipidemia Grandmother Diabetes paternal uncle Mental disorder drug use and eventually suicide Social History Smoking/Tobacco Use Status: Never Smoking risk assessment performed?: Yes Alcohol Intake: current Alcohol Intake frequency: a few times a month Alcohol type: wine Drug use: Current Sobriety Substance use type: does not use Details: methadone clinic Do you feel safe at home: Yes Do you feel safe in your relationship?: Yes Exam Const General: cooperative, comfortable and no acute distress [facility] Head images: 1. Mild swelling noted Teeth image: 1. Fracture noted, tenderness, uvula midline, no trismus, no soft palate induration Eyes Pupils: PERRL Neck Other: No stridor Resp Effort & Inspection: normal respiratory effort Cardio Rate: regular rate Skin General skin exam: no rashes or lesions noted Neuro General: patient alert Course Vital Signs Vital signs: Vital Signs Temperature 37.1 C 10/21/21 10:59 Pulse 95 H 10/21/21 10:59 Respiratory Rate 17 10/21/21 10:59 Blood Pressure 117/72 10/21/21 10:59 Pulse Oximetry 100 10/21/21 10:59 Temperature 37.1 C 10/21/21 10:59 Temperature Source Tympanic 10/21/21 10:59 Pulse 95 H 10/21/21 10:59 Respiratory Rate 17 10/21/21 10:59 Respiratory Effort Non-Labored 10/21/21 11:03 Blood Pressure 117/72 10/21/21 10:59 Blood Pressure Position Sitting 10/21/21 10:59 Pulse Oximetry 100 10/21/21 10:59 Oxygen Delivery Method Room Air 10/21/21 10:59 Oxygen Flow Rate 0 10/21/21 10:59 Pain Level 10 10/21/21 11:04 Procedures Nerve Block Nerve Block 1: Local Anesthetic: Bupivicaine 0.5% Intraoral Nerve Block: inferior alveolar Procedure Successful: Yes Patient Tolerated Procedure: well Complications: none
== END 2021-10-21 12:32 | disposition home or self-care (01) ==
PROVIDERS: Emergency Provider Physician Assistant; PCP Nurse Practitioner Family
DX: K04.7 Periapical abscess without sinus (principal)
CPT/HCPCS: 64400

== ENCOUNTER 2021-11-02 17:05 | Emergency (ER) | payer MEDICAID, SELFPAY ==
[2021-11-02 18:10] VITALS: BP 102/66; PULSE 99; RESP 20; TEMP 37.9; O2SAT 98
[2021-11-02 19:05] LABS: Bilirubin Negative (Negative); Blood Negative (Negative); Clarity Clear (Clear); Glucose Negative (Negative); Ketones Negative (Negative); Leukocyte Esterase Trace (Negative); Nitrite Negative (Negative); Urobilinogen 0.2 EU/dL (Up TO 0.2); pH 5.5 (5-8)
[2021-11-02 19:11] LABS: Bacteria Rare HPF (Negative); C & S Indicated? No; Casts Negative LPF (Negative); Crystals Negative HPF (Negative); Epithelial Cells Few HPF (Negative); Mucus Trace (Negative); RBC 0-2 HPF (0-2)
[2021-11-02 19:16] VITALS: RESP 12
[2021-11-02] MEDS: Ondansetron O.D.T. 4 MG TABEF PO (19:19)
[2021-11-02 20:02] LABS: COVID-19 PCR Negative (Negative); Influenza A PCR Negative (Negative); Influenza B PCR Negative (Negative); RSV PCR Negative (Negative)
[2021-11-02 20:04] LABS: Source Nasopharynx
--- NOTE | 2021-11-02 20:45 | DI.CT_ITS ---
Exam(s) CT ABDOMEN PELVIS WO EXAM: CT ABDOMEN PELVIS WO CLINICAL HISTORY: pain flanks, uti, fever. TECHNIQUE: Imaging Protocol: Axial computed tomography images with coronal and sagittal reformatted images were created and reviewed. COMPARISON: CT CT ABDOMEN PELVIS WO from 04/27/2019 FINDINGS: Lack of IV contrast does limit evaluation of the abdominal pelvic organs. ABDOMEN: Lung Bases: Normal where visualized. Liver: Normal density. No measurable mass. Gallbladder and biliary tract: No radiodense calculus or biliary ductal dilation. Pancreas: Normal density, no abnormal calcifications or inflammatory process. Spleen: Normal. Kidneys: Normal size, contour and axis.No radiodense stones or obstructive uropathy. No masses seen. Adrenal glands: No mass is seen. Lymph nodes: Within normal limits. Abdominal Aorta: Abdominal portion non-dilated. PELVIS: Bladder:Symmetric distention, no gross wall thickening. Bowel: No obstruction or bowel wall thickening. No evidence of appendicitis. There is a moderate amelia unt of stool in the colon. Peritoneal cavity: No ascites, collection or mesenteric inflammatory response. No free air. Reproductive organs: Within normal limits. Bones: Within normal limits. Soft Tissues: Within normal limits. IMPRESSION: Moderate amount of retained stool throughout the colon. Otherwise unremarkable CT scan of the abdome n and pelvis. RADIATION DOSE DELIVERED: 392.82mGy.cm Total DLP DATA REPOSITORY: All CT scans at this facility are submitted to the National Radiology Data Registry (NRDR) Dose Index Registry (DIR) with the [employer] ([employer]). RADIATION OPTIMIZATION: All CT scans at this facility use at least one of these dose optimization te chniques: automated exposure control; mA and/or kV adjustment per patient size (includes targeted exa ms where dose is matched to clinical indication); or iterative reconstruction.
--- NOTE | 2021-11-02 20:50 | W.ED.GENAD ---
Discharge Plan Disposition Patient Disposition: HOME Condition: Stable Discharge Details Clinical Impression: Nonspecific syndrome suggestive of viral illness, Fever Primary Care Provider: Bartolo Landa ED Provider: Dylon Monique Home Meds and New Rx's Prescriptions: Continued pantoprazole 40 MG tablet,delayed release (DR/EC) 40 mg PO DAILY levothyroxine [Synthroid] 75 MCG tablet 75 mcg PO DAILY albuterol sulfate 8.5 GM HFA aerosol inhaler 2 puff Inhalation QID PRN PRN Label Comments: 6 months ago methylphenidate HCl [Ritalin] 20 MG tablet 20 mg PO TID Claritin Liqui-Gel 10 MG capsule 1 tab PO DAILY estradiol 1 mg Tablet 2 mg BID lorazepam [Ativan] 0.5 mg Tablet 0.5 mg PO DAILY fluoxetine 40 mg Capsule 40 mg PO DAILY ondansetron 4 mg tablet,disintegrating 4 mg PO TID-QID PRN (Reason: nausea and vomiting) Qty: 20 0RF buprenorphine-naloxone [Suboxone] 8-2 mg film 1 film sublingual BID Label Comments: Place 1 film under tongue twice a day through Sun, prescribed by Dr. Diallo clindamycin HCl 150 mg capsule 450 mg PO TID Qty: 90 0RF Discharge Instructions Instructions: Viral Syndrome (ED) Additional Instructions: Please drink plenty of fluids and allow for plenty of rest Please contact your primary care physician to arrange follow-up. Return to the ER immediately for any worsening or new concerning symptoms. Referrals: Bartolo Landa, CONSTRUCTION MANAGEMENT ASSISTANT [Primary Care Provider] - Discharge Data Discharge Date/Time-TO BE ENTERED AT DEPARTURE: 11/02/21 23:22 Medical Decision Making 36-year-old female with multiple medical problems here with fever, sore throat, body aches, headache, concern for viral illness. Patient is mildly tachycardic and normotensive on arrival. Patient has had recent dental infection and has improved on clindamycin, she has no pain or inflammation on exam. Labs reviewed and nondiagnostic. Negative COVID, negative influenza. Leukocytosis noted. Lactate nl. Patient does have a history of medullary sponge kidney disease and has had frequent urinary tract infections in the past. Urinalysis was reviewed and is not consistent with UTI. Given flank discomfort and history of inconsistent urinalysis in the past as well as currently on antibiotic, consider renal abscess or pyelonephritis, CT of the abdomen pelvis was obtained and interpreted by radiology: IMPRESSION: Possible constipation. Patient was given IV fluid bolus and reassessed and she noted her symptoms had significantly improved. HR improved. Suspect viral illness. Plan will be for discharge with outpatient follow-up. Disposition decision was made weighing the risks and benefits of hospitalization versus outpatient treatment, the risk for further decompensation, and the patient's wishes. The patient was stable and requested discharge. Prior to discharge, my usual and customary return precautions were reviewed with the patient - this included follow-up instructions and reason to return to the emergency department if condition worsens, does not improve as expected, or other new concerns arise. Lab Data Lab results reviewed: Yes I reviewed the patient's lab results. Labs: 11/02/21 21:25 Blood Blood Culture - Preliminary NO GROWTH 48 HOURS 11/02/21 21:00 Blood Blood Culture - Preliminary NO GROWTH 48 HOURS Laboratory Tests Range/Units 11/02/21 11/02/21 11/02/21 17:30 19:20 21:00 WBC (4.4-10.8) 10^3/uL RBC (3.93-5.22) 10^6/uL Hgb (11.2-15.7) g/dL Hct (36.0-46.0) % MCV (80-95) fL MCH (27.0-33.0) pg MCHC (32.0-36.0) % RDW (11.7-14.6) % Plt Count (130-400) 10^3/uL MPV (8.0-11.0) fL Immature Gran % Neutrophils % Lymphocytes % Monocytes % Eosinophils % Basophils % Nucleated RBC % (0.0-0.3) % Absolute Neutrophils (1.2-6.7) 10^3/uL Absolute Lymphocytes (1.2-3.4) 10^3/uL Absolute Monocytes (0.1-0.8) 10^3/uL Absolute Eosinophils (0.0-0.7) 10^3/uL Absolute Basophils (0.0-0.2) 10^3/uL VBG Lactate (0.6-1.4) mmol/L Sodium (136-145) mmol/L 135 L Potassium (3.5-5.1) mmol/L 3.9 Chloride (98-107) mmol/L 101 Carbon Dioxide (21.0-32.0) mmol/L 26.2 Anion Gap (3-11) mmol/L 7.8 BUN (7-18) mg/dL 15 Creatinine (0.55-1.02) mg/dL 0.7 Estimated GFR/1.73 m2 (mL/min/1.73m2) >= 60.00 Glucose (74-106) mg/dL 94 Calcium (8.5-10.1) mg/dL 9.0 Total Bilirubin (0.2-1.0) mg/dL 0.2 AST (15-37) U/L 23 ALT (14-59) U/L 23 Alkaline Phosphatase (46-116) U/L 106 Total Protein (6.4-8.2) g/dL 8.1 Albumin (3.4-5.0) g/dL 4.2 Urine Color (Yellow) Yellow Urine Clarity (Clear) Clear Urine pH (5-8) 5.5 Ur Specific [place] (1.005-1.025) 1.010 Urine Protein (Negative) mg/dL Negative Urine Ketones (Negative) mg/dL Negative Urine Blood (Negative) Negative Urine Nitrite (Negative) Negative Urine Bilirubin (Negative) Negative Urine Urobilinogen (Up TO 0.2) EU/dL 0.2 Ur Leukocyte Esterase (Negative) Trace H Urine RBC (0-2) HPF 0-2 Urine WBC (0-5) HPF 3-5 Ur Epithelial Cells (Negative) HPF Few Urine Crystals (Negative) HPF Negative Urine Bacteria (Negative) HPF Rare Urine Casts (Negative) LPF Negative Urine Mucus (Negative) Trace Ur Culture Indicated? No Urine Glucose (Negative) mg/dL Negative COVID-19 Source Nasopharynx SARS-CoV-2 (PCR) (Negative) Negative Influenza Type A (PCR) (Negative) Negative Influenza Type B (PCR) (Negative) Negative RSV (PCR) (Negative) Negative Range/Units 11/02/21 11/02/21 21:00 21:00 WBC (4.4-10.8) 10^3/uL 13.22 H RBC (3.93-5.22) 10^6/uL 4.18 Hgb (11.2-15.7) g/dL 12.0 Hct (36.0-46.0) % 37.1 MCV (80-95) fL 89 MCH (27.0-33.0) pg 28.7 MCHC (32.0-36.0) % 32.3 RDW (11.7-14.6) % 12.3 Plt Count (130-400) 10^3/uL 241 MPV (8.0-11.0) fL 11.6 H Immature Gran % 0.3 Neutrophils % 76.7 Lymphocytes % 16.7 Monocytes % 5.6 Eosinophils % 0.3 Basophils % 0.4 Nucleated RBC % (0.0-0.3) % 0.0 Absolute Neutrophils (1.2-6.7) 10^3/uL 10.14 H Absolute Lymphocytes (1.2-3.4) 10^3/uL 2.21 Absolute Monocytes (0.1-0.8) 10^3/uL 0.74 Absolute Eosinophils (0.0-0.7) 10^3/uL 0.04 Absolute Basophils (0.0-0.2) 10^3/uL 0.05 VBG Lactate (0.6-1.4) mmol/L 0.8 Sodium (136-145) mmol/L Potassium (3.5-5.1) mmol/L Chloride (98-107) mmol/L Carbon Dioxide (21.0-32.0) mmol/L Anion Gap (3-11) mmol/L BUN (7-18) mg/dL Creatinine (0.55-1.02) mg/dL Estimated GFR/1.73 m2 (mL/min/1.73m2) Glucose (74-106) mg/dL Calcium (8.5-10.1) mg/dL Total Bilirubin (0.2-1.0) mg/dL AST (15-37) U/L ALT (14-59) U/L Alkaline Phosphatase (46-116) U/L Total Protein (6.4-8.2) g/dL Albumin (3.4-5.0) g/dL Urine Color (Yellow) Urine Clarity (Clear) Urine pH (5-8) Ur Specific [place] (1.005-1.025) Urine Protein (Negative) mg/dL Urine Ketones (Negative) mg/dL Urine Blood (Negative) Urine Nitrite (Negative) Urine Bilirubin (Negative) Urine Urobilinogen (Up TO 0.2) EU/dL Ur Leukocyte Esterase (Negative) Urine RBC (0-2) HPF Urine WBC (0-5) HPF Ur Epithelial Cells (Negative) HPF Urine Crystals (Negative) HPF Urine Bacteria (Negative) HPF Urine Casts (Negative) LPF Urine Mucus (Negative) Ur Culture Indicated? Urine Glucose (Negative) mg/dL COVID-19 Source SARS-CoV-2 (PCR) (Negative) Influenza Type A (PCR) (Negative) Influenza Type B (PCR) (Negative) RSV (PCR) (Negative) HPI General Mode of arrival: ambulatory. Date/Time Provider Initiated Documentation: 11/02/21 18:30. Limitations to Documentation: no limitations. Information obtained by: patient. HPI Narrative: 36-year-old female with multiple medical problems including history of medullary sponge kidney with urinary tract infections in the past, recently had dental infection and is currently on clindamycin, here with chief complaint of viral-like illness. Patient notes fever, body aches, sore throat, headache and nausea vomiting. Symptoms started 2 to 3 days ago and has persisted. She notes she recently had close contact with a friend who was subsequently diagnosed with COVID and also a friend who was subsequently diagnosed with influenza. She is concerned that she has a viral infection. Symptoms are moderate. No modifiers. No associated dysuria or abdominal pain. She does have some backaches involving her flanks. Denies IV drug use. Denies tick bite. Related Data Home Medications Medication Instructions Recorded Confirmed pantoprazole 40 mg tablet,delayed 40 mg PO DAILY 03/19/13 11/02/21 release levothyroxine 75 mcg tablet 75 mcg PO DAILY 06/23/13 11/02/21 (Synthroid) albuterol sulfate 90 mcg/actuation 2 puff inhalation QID PRN PRN 08/31/14 11/02/21 aerosol inhaler loratadine 10 mg capsule (Claritin 1 tab PO DAILY 03/18/17 11/02/21 Liqui-Gel) methylphenidate HCl 20 mg tablet 20 mg PO TID 03/18/17 11/02/21 (Ritalin) estradiol 1 mg tablet 2 mg BID 08/13/19 11/02/21 buprenorphine 8 mg-naloxone 2 mg 1 film sublingual BID 10/21/21 11/02/21 sublingual film (Suboxone) clindamycin HCl 150 mg capsule 450 mg PO TID #90 caps 05/08/22 05/20/22 fluoxetine 40 mg capsule 40 mg PO DAILY 11/02/21 11/02/21 lorazepam 0.5 mg tablet (Ativan) 0.5 mg PO DAILY 11/02/21 11/02/21 ondansetron 4 mg disintegrating 4 mg PO TID-QID PRN nausea and 11/02/21 tablet vomiting #20 tabs Previous Rx's Medication Instructions Recorded clindamycin HCl 150 mg capsule 450 mg PO TID #90 caps 10/21/21 ondansetron 4 mg disintegrating 4 mg PO TID-QID PRN nausea and 11/02/21 tablet vomiting #20 tabs Allergies Allergy/AdvReac Type Severity Reaction Status Date / Time Sulfa (Sulfonamide Allergy rash/vomiti Unverified 11/02/21 21:36 Antibiotics) ng ibuprofen AdvReac Psychosis Unverified 11/02/21 21:36 prednisone AdvReac flashes of Unverified 11/02/21 21:36 light/feels drunk General Stated Complaint: GenMedical TANA: 3 Review of Systems All systems reviewed & are unremarkable except as noted in HPI and below Constitutional Constitutional: Reports body ache(s) and Reports fever(s) ENT Ears, Nose, Mouth, and Throat: Reports as per HPI, Denies dental pain and Denies neck pain Musculoskeletal Musculoskeletal: Denies neck pain PFSH All Active Problems Abscess, dental (Acute) Nonspecific syndrome suggestive of viral illness (Acute) Fever (Acute) Screening for STD (sexually transmitted disease) (Acute) Discharge planning issues (Acute) DVT prophylaxis (Acute) Viral gastroenteritis (Acute) Hot flashes due to surgical menopause (Acute) Prediabetes (Acute) Long-term current use of methadone for opiate dependence (Acute) Vomiting (Acute) Fever (Acute) Pyelonephritis (Acute) Acute tonsillitis (Acute 05/31/13) deep vein thrombosis with complication (Acute 04/07/13) received Lovenox during her pregnancies. Bleeding of cervix (Acute 05/03/16) s/p supracervical hysterectomy 2013. Has spotting. Blood glucose abnormal (Acute 03/16/13) Candidal vulvovaginitis (Acute 08/27/13) Choking sensation (Acute 08/30/13) Chronic low back pain without sciatica (Acute 05/03/16) Neg MRI, neg neuro w/u. Most likely neuroskeletal in origin. Chronic pelvic pain in female (Acute 04/14/13) Dysmenorrhea (Acute 06/21/13) Endometriosis (Acute 05/23/16) Fibromyalgia (Acute 05/23/16) Flank pain (Acute 05/23/16) GDM (gestational diabetes mellitus), class A1 (Acute 05/03/16) with previous pregnancies. Random HgbA1c have been normal. Globus sensation (Acute 08/30/13) Gross hematuria (Acute 05/23/16) History of pyelonephritis (Acute 05/23/16) Hydrosalpinx (Acute 05/21/16) Hypertrophy of tonsils (Acute 08/30/13) Hypothyroidism (Chronic 02/09/13) Irritable colon (Acute 02/09/13) Metrorrhagia (Acute 06/11/13) Medullary sponge kidney (Acute 05/31/16) Menorrhagia (Acute 03/30/13) Obsessive compulsive disorder (Acute 02/09/13) Positive urine drug screen (Acute 05/03/16) 03/19/16 during admission to [facility] with gastroenteritis. Restless leg syndrome (Acute 05/23/16) Disorder of sacrum (Acute) Chronic pain (Acute) Fibromyalgia (Acute) Gastroenteritis due to Cryptosporidium (Acute) Diarrhea with dehydration (Acute) Hypokalemia (Acute) Medical History deep vein thrombosis with complication Depression Impaired glucose tolerance during . HgbA1c have been normal. Irritable colon Menorrhagia 12/2012 continued bleeding after PP endometritis. No response to abx/Norethindrone. Nl imaging studies. 06/23/13 hysteroscopy, D+C and Mirena IUD insertion. 11/2013 Pt had laparotomy for supracervical hysterectomy at [facility]. Positive urine drug screen 03/19/16 for Codeine and Morphine at time of admission for gastroenteritis. Subclinical hypothyroidism during 3rd . Surgical History section 08/06/2006 PCD arrest of descent 11/27/2007 RCD with BTL 11/12/2012 Repeat CD at term [facility]. Uterine atony immediately post op Office EMBx 01/11/13 @ [facility] c/w chronic endometritis. 11/13 Admitted to [facility] with fever and pelvic pain s/p IV abx x3day Dilation and curettage (06/23/13) diagnostic hysteroscopy with insertion of Mirena IUD. Benign pathology. No endometritis or adenomyosis Hysterectomy, Laproscopic November 2013 H converted to supracervical hysterectomy at [facility]. Ligation of fallopian tube (11/27/07) RCD with bilateral fimbriectomy. Sigmoidoscopy Family History Father Diabetes Heart disease father 50yo from heart failure. Hyperlipidemia Grandmother Diabetes paternal uncle Mental disorder drug use and eventually suicide Social History Smoking/Tobacco Use Status: Never Smoking risk assessment performed?: Yes Alcohol Intake: current Alcohol Intake frequency: a few times a month Alcohol type: wine Drug use: Current Sobriety Substance use type: does not use Details: methadone clinic Do you feel safe at home: Yes Do you feel safe in your relationship?: Yes Exam Const General: cooperative and no acute distress Orientation: alert and awake HENMT Head: normocephalic and atraumatic General nose exam: external nose normal Mouth: moist mucous membranes Teeth and gingiva: normal teeth and gingiva Throat: uvula midline, no peritonsillar masses and posterior oropharynx abnormal erythema (Mild); no edema and no exudates Other: No stridor, no trismus Eyes Conjunctivae: normal conjunctivae Sclera: normal sclerae EOM: EOM intact bilaterally Neck Neck: full ROM, no meningeal signs, trachea midline and supple Resp Auscultation: clear to auscultation bilaterally, no rales, no rhonchi and no wheezes Cardio Rate: tachycardic Rhythm: regular rhythm Heart Sounds: no murmurs GI Palpation: soft, not firm, no guarding, no masses, not rigid and nontender Skin General skin exam: no rashes or lesions noted Neuro General: patient alert, patient awake, patient oriented x3 and tone normal Cognition: normal cognition Gait: normal gait Extrem General: no edema Psych Appearance: grossly normal Mental Status: mental status grossly normal Speech and Movement: speech and movement normal Course Vital Signs Vital signs: Vital Signs Temperature 37.9 C H 11/02/21 18:10 Pulse 99 H 11/02/21 18:10 Respiratory Rate 20 11/02/21 18:10 Blood Pressure 102/66 11/02/21 18:10 Pulse Oximetry 98 11/02/21 18:10 Temperature 37.9 C H 11/02/21 18:10 Temperature Source Oral 11/02/21 18:10 Pulse 99 H 11/02/21 18:10 Respiratory Rate 12 11/02/21 19:16 Respiratory Effort 11/02/21 19:16 Respiratory Depth Normal 11/02/21 19:16 Respiratory Pattern Normal 11/02/21 19:16 Blood Pressure 102/66 11/02/21 18:10 Blood Pressure Position Sitting 11/02/21 18:10 Pulse Oximetry 98 11/02/21 18:10 Oxygen Delivery Method Room Air 11/02/21 18:10 Oxygen Flow Rate 0 11/02/21 18:10 Pain Level 9 11/02/21 18:10 Lab/Test Results Lab/Test Results: Laboratory Tests Range/Units 11/02/21 11/02/21 17:30 19:20 Urine Color (Yellow) Yellow Urine Clarity (Clear) Clear Urine pH (5-8) 5.5 Ur Specific [place] (1.005-1.025) 1.010 Urine Protein (Negative) mg/dL Negative Urine Ketones (Negative) mg/dL Negative Urine Blood (Negative) Negative Urine Nitrite (Negative) Negative Urine Bilirubin (Negative) Negative Urine Urobilinogen (Up TO 0.2) EU/dL 0.2 Ur Leukocyte Esterase (Negative) Trace H Urine RBC (0-2) HPF 0-2 Urine WBC (0-5) HPF 3-5 Ur Epithelial Cells (Negative) HPF Few Urine Crystals (Negative) HPF Negative Urine Bacteria (Negative) HPF Rare Urine Casts (Negative) LPF Negative Urine Mucus (Negative) Trace Ur Culture Indicated? No Urine Glucose (Negative) mg/dL Negative COVID-19 Source Nasopharynx SARS-CoV-2 (PCR) (Negative) Negative Influenza Type A (PCR) (Negative) Negative Influenza Type B (PCR) (Negative) Negative RSV (PCR) (Negative) Negative
[2021-11-02 21:27] LABS: Lactate 0.8 mmol/L (0.6-1.4)
[2021-11-02 21:30] LABS: Abs Immature Grans 0.04 10^3/uL (0.0-0.06); Absolute Basophil Count 0.05 10^3/uL (0.0-0.2); Absolute Eosinophil Count 0.04 10^3/uL (0.0-0.7); Absolute Lymphocyte Count 2.21 10^3/uL (1.2-3.4); Absolute Monocyte Count 0.74 10^3/uL (0.1-0.8); Absolute Neutrophil Count 10.14 10^3/uL (1.2-6.7); Basophils % 0.4; Eosinophils % 0.3; HCT 37.1 % (36.0-46.0); Immature Grans % 0.3; Lymphocytes % 16.7; MCH 28.7 pg (27.0-33.0); MCHC 32.3 % (32.0-36.0); MCV 89 fL (80-95); MPV 11.6 fL (8.0-11.0); Monocytes % 5.6; Neutrophils % 76.7; Platelet Count 241 10^3/uL (130-400); RBC 4.18 10^6/uL (3.93-5.22); RDW 12.3 % (11.7-14.6); RDW-SD 40.2 fL; WBC 13.22 10^3/uL (4.4-10.8)
[2021-11-02] MEDS: Lactated Ringers 500 ML IV (21:30)
[2021-11-02 21:43] LABS: ALT 23 U/L (14-59); AST 23 U/L (15-37); Albumin 4.2 g/dL (3.4-5.0); Alkaline Phosphatase 106 U/L (46-116); Anion Gap 7.8 mmol/L (3-11); BUN 15 mg/dL (7-18); Bilirubin, Total 0.2 mg/dL (0.2-1.0); CO2 26.2 mmol/L (21.0-32.0); CREATININE 0.7 mg/dL (0.55-1.02); Chloride 101 mmol/L (98-107); Glucose 94 mg/dL (74-106); Potassium 3.9 mmol/L (3.5-5.1); Sodium 135 mmol/L (136-145); Total Protein 8.1 g/dL (6.4-8.2)
--- NOTE | 2021-11-02 22:20 | DI.VRAD_ITS ---
PROCEDURE INFORMATION: Exam: CT Abdomen And Pelvis Without Contrast Exam date and time: 11/02/2021 9:58 PM Age: 36 years old Clinical indication: Other: Flank pain TECHNIQUE: Imaging protocol: Computed tomography of the abdomen and pelvis without contrast. COMPARISON: CT ABDOMEN PELVIS WO 04/27/2019 3:34 PM FINDINGS: Liver: Normal. No mass. Gallbladder and bile ducts: Normal. No calcified stones. No ductal dilation. Pancreas: Normal. No ductal dilation. Spleen: Normal. No splenomegaly. Adrenal glands: Normal. No mass. Kidneys and ureters: Normal. No hydronephrosis. Stomach and bowel: Moderate colonic stool burden. No small bowel dilatation. Stomach is unremarkable. Appendix: No evidence of appendicitis. Intraperitoneal space: Unremarkable. No free air. No significant fluid collection. Vasculature: Pelvic phleboliths. Normal aorta. Lymph nodes: Unremarkable. No enlarged lymph nodes. Urinary bladder: Unremarkable as visualized. Reproductive: Unremarkable as visualized. Bones/joints: Unremarkable. No acute fracture. Soft tissues: Unremarkable. IMPRESSION: Possible constipation. Dictated and Authenticated by: Xavier Alford MD. Ordering:MERI Osborne MD
[2021-11-02 22:45] VITALS: PULSE 79; RESP 16; O2SAT 98
[2021-11-02 22:50] VITALS: PULSE 81; RESP 17; O2SAT 98
[2021-11-02 23:00] VITALS: PULSE 82; RESP 17
== END 2021-11-02 23:22 | disposition home or self-care (01) ==
PROVIDERS: Emergency Provider Student in an Organized Health Care Education/Training Program; PCP Nurse Practitioner Family
DX: B34.9 Viral infection, unspecified (principal); R50.9 Fever, unspecified
CPT/HCPCS: 36415; 80053; 87040; 87637; 96360; 99283; 99284; 74176; 81003; 81015; 83605; 85025

== ENCOUNTER 2021-11-13 19:44 | Emergency (ER) | payer MEDICAID, SELFPAY ==
[2021-11-13] VITALS (10 sets, daily range): BP systolic 88–121; BP diastolic 41–72; PULSE 100–130; RESP 12–26; TEMP 37.1–39.4; O2SAT 96–100
--- NOTE | 2021-11-13 19:52 | W.ED.GENAD ---
Discharge Plan Disposition Patient Disposition: HOME Condition: Improving Discharge Details Clinical Impression: COVID-19 Primary Care Provider: Bartolo Landa ED Provider: Cherri Casey Home Meds and New Rx's Prescriptions: Continued pantoprazole 40 MG tablet,delayed release (DR/EC) 40 mg PO DAILY levothyroxine [Synthroid] 75 MCG tablet 75 mcg PO DAILY albuterol sulfate 8.5 GM HFA aerosol inhaler 2 puff Inhalation QID PRN PRN Label Comments: 6 months ago methylphenidate HCl [Ritalin] 20 MG tablet 20 mg PO TID Claritin Liqui-Gel 10 MG capsule 1 tab PO DAILY estradiol 1 mg Tablet 2 mg BID lorazepam [Ativan] 0.5 mg Tablet 0.5 mg PO DAILY fluoxetine 40 mg Capsule 40 mg PO DAILY ondansetron 4 mg tablet,disintegrating 4 mg PO TID-QID PRN (Reason: nausea and vomiting) Qty: 20 0RF buprenorphine-naloxone [Suboxone] 8-2 mg film 1 film sublingual BID Label Comments: Place 1 film under tongue twice a day through [facility], prescribed by Dr. Yoel Cisneros clindamycin HCl 150 mg capsule 450 mg PO TID Qty: 90 0RF Discharge Instructions Instructions: COVID-19 (Coronavirus Disease 2019) (ED) Additional Instructions: You are positive for the COVID-19 virus. The remainder of your work-up today including blood work, EKG and imaging shows no evidence of acute concerning or significant findings. Our in-house radiologist will review your imaging tomorrow and you will be notified if any additional findings are noted. Drink plenty of fluids and get plenty of rest. Continue to take Tylenol and the naproxen that you take at home as needed and directed for pain or fever. Follow-up with your primary care doctor in 1 week. Return to the emergency department with any worsening or new concerning symptoms such as persistent fevers, shortness of breath or any other concerns. 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 Also admits to headache, runny nose, nasal congestion, cough and shortness of breath for the past few days. Admits to recent exposure to COVID-19 and influenza A. Was seen here 11 days ago for similar symptoms and had a negative COVID, influenza and CT abdomen and pelvis without IV contrast. She states her symptoms feel similar to when she has had urosepsis in the past. When she was seen here on 11/02/2021, she had a urinalysis which 3-5 WBCs, rare bacteria, trace leukocyte esterase and urine culture not sent. Patient appears somewhat uncomfortable but nontoxic. Heart rate 130s in sinus tach on the monitor. Temp 103 p.o. oxygen saturation 100% on room air. She is speaking in full sentences and demonstrates no signs of respiratory distress. Normal ENT exam. Lungs clear bilaterally. Abdomen soft and nontender. No CVA tenderness. No meningeal signs. Differential diagnosis includes UTI, COVID-19, influenza a, viral syndrome, PE. History and presentation does not appear consistent with meningitis, encephalitis at this time. We will place an IV, bolus IV fluids, IV Toradol, IV Zofran, screening labs including lactate, blood cultures, D-dimer and urinalysis. We will hold on imaging pending D-dimer result. 2144 -- labs reviewed. Normal white blood cell count. Hemoglobin 10 which is close to her baseline. Lactate 1.6. Normal electrolytes. Lipase normal. Covid resuted POSITIVE. Patient states she is unvaccinated for COVID. As she is 13 days out from onset of symptoms, she does not meet criteria for pack Flovent or monoclonal antibody infusion. D-dimer minimally elevated. In the setting of shortness of breath, tachycardia, will obtain a CT chest abdomen and pelvis to rule out PE and due to her additional complaints of lower abdominal pressure and lower back pain, rule out any additional intra-abdominal etiology. Heart rate now 110s. We will give another bolus of IV fluids and IV Tylenol. 2429 --CT chest negative for PE. CT abdomen/pelvis notes Minor dilation of the collecting systems is probably due to the distended urinary bladder and is more pronounced on the right. Patient reassessed --heart rate now 90s. Blood pressure 110/54. Oxygen saturation 100% on room air. Temperature now 98.7 p.o. Patient feels comfortable going home at this time. She is advised to increase fluids, rest, alternate Tylenol and naproxen. Advised to follow up with the primary care doctor for re-evaluation. Usual and customary return precautions given prior to discharge. Medical Records Medical records reviewed: Yes I reviewed the patient's medical records. Medical records narrative: 11/02/21 CT ABDOMEN ? PELVIS WO CLINICAL HISTORY: ? pain flanks, uti, fever.? TECHNIQUE:? Imaging Protocol: Axial computed tomography images with coronal and sagittal reformatted images were created and reviewed. COMPARISON:? CT CT ABDOMEN ? PELVIS WO from 04/27/2019 FINDINGS: Lack of IV contrast does limit evaluation of the abdominal pelvic organs.? ABDOMEN: Lung Bases: Normal where visualized. Liver: Normal density. No measurable mass. Gallbladder and biliary tract: No radiodense calculus or biliary ductal dilation. Pancreas: Normal density, no abnormal calcifications or inflammatory process. Spleen: Normal. Kidneys: Normal size, contour and axis.No radiodense stones or obstructive uropathy. No masses seen. Adrenal glands: No mass is seen. Lymph nodes: Within normal limits.? Abdominal Aorta: Abdominal portion non-dilated. PELVIS:? Bladder:Symmetric distention, no gross wall thickening. Bowel: No obstruction or bowel wall thickening. No evidence of appendicitis.? There is a moderate amount of stool in the colon. Peritoneal cavity: No ascites, collection or mesenteric inflammatory response.? No free air.? Reproductive organs: Within normal limits. Bones: Within normal limits. Soft Tissues: Within normal limits. IMPRESSION: Moderate amount of retained stool throughout the colon.? Otherwise unremarkable CT scan of the abdomen and pelvis.? Imaging Data Radiologic Study: Radiologist's impression: CTA Chest With Contrast Exam date and time: 11/13/2021 22:16 Age: 36 years old Clinical indication: Vomiting and other: Abdominal pain; Cough and shortness of breath; Prior surgery; Surgery date: 6+ months; Surgery type: Hysterectomy, hernia repair, patient HX: Shortness of breath, tachycardic, elevated d dimer TECHNIQUE: Imaging protocol: Computed tomographic angiography of the chest with contrast. 3D rendering (Not supervised by radiologist): MIP and/or 3D reconstructed images were created by the technologist. Radiation optimization: All CT scans at this facility use at least one of these dose optimization techniques: automated exposure control; mA and/or kV adjustment per patient size (includes targeted exams where dose is matched to clinical indication); or iterative reconstruction. Contrast material: VISIPAQUE 320; Contrast volume: 50 ml; Contrast route: INTRAVENOUS (IV);? COMPARISON: CT ABDOMEN PELVIS WO 11/02/2021 21:58 FINDINGS: Pulmonary arteries: No pulmonary emboli. Aorta: No aortic aneurysm. No aortic dissection. Lungs: No airspace consolidation. Pleural spaces: No pneumothorax. No pleural effusion. Heart: No cardiomegaly. No pericardial effusion. Lymph nodes: No enlarged lymph nodes. Bones/joints: No acute fracture. Soft tissues: No suspicious lesions.? IMPRESSION: No pulmonary emboli are seen. CT Abdomen And Pelvis With Contrast Exam date and time: 11/13/2021 22:16 Age: 36 years old Clinical indication: Vomiting and other: Abdominal pain; Cough and shortness of breath; Prior surgery; Surgery date: 6+ months; Surgery type: Hysterectomy, hernia repair, patient HX: Shortness of breath, tachycardic, elevated d dimer TECHNIQUE: Imaging protocol: Computed tomography of the abdomen and pelvis with contrast. Radiation optimization: All CT scans at this facility use at least one of these dose optimization techniques: automated exposure control; mA and/or kV adjustment per patient size (includes targeted exams where dose is matched to clinical indication); or iterative reconstruction. Contrast material: VISIPAQUE 320; Contrast volume: 50 ml; Contrast route: INTRAVENOUS (IV);? COMPARISON: CT ABDOMEN PELVIS WO 11/02/2021 21:58 FINDINGS: Liver: No mass. Gallbladder and bile ducts: No calcified stones. No ductal dilation. Pancreas: No ductal dilation. No masses.? Spleen: No splenomegaly or focal lesions. Adrenal glands: No mass. Kidneys and ureters: Minor dilation of the collecting systems is probably due to the distended urinary bladder and is more pronounced on the right. No renal masses. Stomach and bowel: No obstruction. No mucosal thickening. Appendix: No evidence of appendicitis. Intraperitoneal space: No free air. No significant fluid collection. Vasculature: No abdominal aortic aneurysm. Lymph nodes: No significantly enlarged lymph nodes. Urinary bladder: The urinary bladder is distended. No urinary bladder wall thickening. Reproductive: Unremarkable as visualized. Bones/joints: No acute fracture. Soft tissues: No suspicious lesions.? IMPRESSION: Minor dilation of the collecting systems is probably due to the distended urinary bladder and is more pronounced on the right. Lab Data Lab results reviewed: Yes I reviewed the patient's lab results. Labs: 11/13/21 20:40 Blood Blood Culture - Pending 11/13/21 20:40 Blood Blood Culture - Pending Laboratory Tests Range/Units 11/13/21 11/13/21 11/13/21 20:15 20:40 20:40 WBC (4.4-10.8) 10^3/uL 8.87 RBC (3.93-5.22) 10^6/uL 3.75 L Hgb (11.2-15.7) g/dL 10.7 L Hct (36.0-46.0) % 33.0 L MCV (80-95) fL 88 MCH (27.0-33.0) pg 28.5 MCHC (32.0-36.0) % 32.4 RDW (11.7-14.6) % 12.1 Plt Count (130-400) 10^3/uL 208 MPV (8.0-11.0) fL 11.5 H Immature Gran % 0.3 Neutrophils % 85.5 Lymphocytes % 6.3 Monocytes % 6.7 Eosinophils % 0.7 Basophils % 0.5 Nucleated RBC % (0.0-0.3) % 0.0 Absolute Neutrophils (1.2-6.7) 10^3/uL 7.59 H Absolute Lymphocytes (1.2-3.4) 10^3/uL 0.56 L Absolute Monocytes (0.1-0.8) 10^3/uL 0.59 Absolute Eosinophils (0.0-0.7) 10^3/uL 0.06 Absolute Basophils (0.0-0.2) 10^3/uL 0.04 D-Dimer (<500) ng/mlFEU VBG Lactate (0.6-1.4) mmol/L Sodium (136-145) mmol/L 134 L Potassium (3.5-5.1) mmol/L 3.6 Chloride (98-107) mmol/L 98 Carbon Dioxide (21.0-32.0) mmol/L 28.5 Anion Gap (3-11) mmol/L 7.5 BUN (7-18) mg/dL 13 Creatinine (0.55-1.02) mg/dL 0.7 Estimated GFR/1.73 m2 (mL/min/1.73m2) >= 60.00 Glucose (74-106) mg/dL 100 Calcium (8.5-10.1) mg/dL 8.3 L Total Bilirubin (0.2-1.0) mg/dL 0.1 L AST (15-37) U/L 19 ALT (14-59) U/L 22 Alkaline Phosphatase (46-116) U/L 104 Troponin I (<or=60) ng/L Total Protein (6.4-8.2) g/dL 7.8 Albumin (3.4-5.0) g/dL 3.8 Lipase (73-393) U/L 52 Urine Color (Yellow) Urine Clarity (Clear) Urine pH (5-8) Ur Specific [place] (1.005-1.025) Urine Protein (Negative) mg/dL Urine Ketones (Negative) mg/dL Urine Blood (Negative) Urine Nitrite (Negative) Urine Bilirubin (Negative) Urine Urobilinogen (Up TO 0.2) EU/dL Ur Leukocyte Esterase (Negative) Urine RBC (0-2) HPF Urine WBC (0-5) HPF Ur Epithelial Cells (Negative) HPF Urine Crystals (Negative) HPF Urine Bacteria (Negative) HPF Urine Casts (Negative) LPF Urine Mucus (Negative) Urine Other (Negative) Ur Culture Indicated? Urine Glucose (Negative) mg/dL COVID-19 Source Nasopharynx SARS-CoV-2 (PCR) (Negative) Positive A Influenza Type A (PCR) (Negative) Negative Influenza Type B (PCR) (Negative) Negative RSV (PCR) (Negative) Negative Range/Units 11/13/21 11/13/21 11/13/21 20:40 20:40 20:40 WBC (4.4-10.8) 10^3/uL RBC (3.93-5.22) 10^6/uL Hgb (11.2-15.7) g/dL Hct (36.0-46.0) % MCV (80-95) fL MCH (27.0-33.0) pg MCHC (32.0-36.0) % RDW (11.7-14.6) % Plt Count (130-400) 10^3/uL MPV (8.0-11.0) fL Immature Gran % Neutrophils % Lymphocytes % Monocytes % Eosinophils % Basophils % Nucleated RBC % (0.0-0.3) % Absolute Neutrophils (1.2-6.7) 10^3/uL Absolute Lymphocytes (1.2-3.4) 10^3/uL Absolute Monocytes (0.1-0.8) 10^3/uL Absolute Eosinophils (0.0-0.7) 10^3/uL Absolute Basophils (0.0-0.2) 10^3/uL D-Dimer (<500) ng/mlFEU 526 H VBG Lactate (0.6-1.4) mmol/L 1.6 H Sodium (136-145) mmol/L Potassium (3.5-5.1) mmol/L Chloride (98-107) mmol/L Carbon Dioxide (21.0-32.0) mmol/L Anion Gap (3-11) mmol/L BUN (7-18) mg/dL Creatinine (0.55-1.02) mg/dL Estimated GFR/1.73 m2 (mL/min/1.73m2) Glucose (74-106) mg/dL Calcium (8.5-10.1) mg/dL Total Bilirubin (0.2-1.0) mg/dL AST (15-37) U/L ALT (14-59) U/L Alkaline Phosphatase (46-116) U/L Troponin I (<or=60) ng/L < 50 Total Protein (6.4-8.2) g/dL Albumin (3.4-5.0) g/dL Lipase (73-393) U/L Urine Color (Yellow) Urine Clarity (Clear) Urine pH (5-8) Ur Specific [place] (1.005-1.025) Urine Protein (Negative) mg/dL Urine Ketones (Negative) mg/dL Urine Blood (Negative) Urine Nitrite (Negative) Urine Bilirubin (Negative) Urine Urobilinogen (Up TO 0.2) EU/dL Ur Leukocyte Esterase (Negative) Urine RBC (0-2) HPF Urine WBC (0-5) HPF Ur Epithelial Cells (Negative) HPF Urine Crystals (Negative) HPF Urine Bacteria (Negative) HPF Urine Casts (Negative) LPF Urine Mucus (Negative) Urine Other (Negative) Ur Culture Indicated? Urine Glucose (Negative) mg/dL COVID-19 Source SARS-CoV-2 (PCR) (Negative) Influenza Type A (PCR) (Negative) Influenza Type B (PCR) (Negative) RSV (PCR) (Negative) Range/Units 11/13/21 21:05 WBC (4.4-10.8) 10^3/uL RBC (3.93-5.22) 10^6/uL Hgb (11.2-15.7) g/dL Hct (36.0-46.0) % MCV (80-95) fL MCH (27.0-33.0) pg MCHC (32.0-36.0) % RDW (11.7-14.6) % Plt Count (130-400) 10^3/uL MPV (8.0-11.0) fL Immature Gran % Neutrophils % Lymphocytes % Monocytes % Eosinophils % Basophils % Nucleated RBC % (0.0-0.3) % Absolute Neutrophils (1.2-6.7) 10^3/uL Absolute Lymphocytes (1.2-3.4) 10^3/uL Absolute Monocytes (0.1-0.8) 10^3/uL Absolute Eosinophils (0.0-0.7) 10^3/uL Absolute Basophils (0.0-0.2) 10^3/uL D-Dimer (<500) ng/mlFEU VBG Lactate (0.6-1.4) mmol/L Sodium (136-145) mmol/L Potassium (3.5-5.1) mmol/L Chloride (98-107) mmol/L Carbon Dioxide (21.0-32.0) mmol/L Anion Gap (3-11) mmol/L BUN (7-18) mg/dL Creatinine (0.55-1.02) mg/dL Estimated GFR/1.73 m2 (mL/min/1.73m2) Glucose (74-106) mg/dL Calcium (8.5-10.1) mg/dL Total Bilirubin (0.2-1.0) mg/dL AST (15-37) U/L ALT (14-59) U/L Alkaline Phosphatase (46-116) U/L Troponin I (<or=60) ng/L Total Protein (6.4-8.2) g/dL Albumin (3.4-5.0) g/dL Lipase (73-393) U/L Urine Color (Yellow) Yellow Urine Clarity (Clear) Clear Urine pH (5-8) 7.5 Ur Specific [place] (1.005-1.025) 1.020 Urine Protein (Negative) mg/dL Negative Urine Ketones (Negative) mg/dL Negative Urine Blood (Negative) Trace-intact H Urine Nitrite (Negative) Negative Urine Bilirubin (Negative) Negative Urine Urobilinogen (Up TO 0.2) EU/dL 0.2 Ur Leukocyte Esterase (Negative) Negative Urine RBC (0-2) HPF 0-2 Urine WBC (0-5) HPF 0-2 Ur Epithelial Cells (Negative) HPF Negative Urine Crystals (Negative) HPF Negative Urine Bacteria (Negative) HPF Negative Urine Casts (Negative) LPF Negative Urine Mucus (Negative) Negative Urine Other (Negative) Negative Ur Culture Indicated? No Urine Glucose (Negative) mg/dL Negative COVID-19 Source SARS-CoV-2 (PCR) (Negative) Influenza Type A (PCR) (Negative) Influenza Type B (PCR) (Negative) RSV (PCR) (Negative) ECG Data Attestation: I personally reviewed and interpreted this ECG (s) as follows: Interpretation: Rate of 90, sinus, normal axis, no STEMI. HPI General Mode of arrival: ambulatory. Date/Time Provider Initiated Documentation: 11/13/21 19:50. Limitations to Documentation: no limitations. Information obtained by: patient. 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 She states her symptoms feel similar to when she has had a UTI and urosepsis in the past. She does also admit to headache, nasal congestion, runny nose, cough and shortness of breath for the past few days. She states in the past few weeks she has been exposed to influenza A and COVID-19. Of note, has been seen in the ED 2 times this month, initially earlier this month for a dental infection treated with clindamycin and then 11 days ago for a fever and diagnosed with viral illness in the setting of negative influenza, negative COVID and negative CT abdomen and pelvis. She states her dental infection has resolved and has finished taking the clindamycin. She states she last took 500 mg of Tylenol 1 hour prior to arrival. She states she cannot take ibuprofen but can regularly take naproxen and has tolerated Toradol in the past. Related Data Home Medications Medication Instructions Recorded Confirmed pantoprazole 40 mg tablet,delayed 40 mg PO DAILY 03/19/13 11/13/21 release levothyroxine 75 mcg tablet 75 mcg PO DAILY 06/23/13 11/13/21 (Synthroid) albuterol sulfate 90 mcg/actuation 2 puff inhalation QID PRN PRN 08/31/14 11/13/21 aerosol inhaler loratadine 10 mg capsule (Claritin 1 tab PO DAILY 03/18/17 11/13/21 Liqui-Gel) methylphenidate HCl 20 mg tablet 20 mg PO TID 03/18/17 11/13/21 (Ritalin) estradiol 1 mg tablet 2 mg BID 08/13/19 11/13/21 buprenorphine 8 mg-naloxone 2 mg 1 film sublingual BID 10/21/21 11/13/21 sublingual film (Suboxone) fluoxetine 40 mg capsule 40 mg PO DAILY 11/02/21 11/13/21 lorazepam 0.5 mg tablet (Ativan) 0.5 mg PO DAILY 11/02/21 11/13/21 ondansetron 4 mg disintegrating 4 mg PO TID-QID PRN nausea and 11/02/21 11/13/21 tablet vomiting #20 tabs Previous Rx's Medication Instructions Recorded ondansetron 4 mg disintegrating 4 mg PO TID-QID PRN nausea and 11/02/21 tablet vomiting #20 tabs Allergies Allergy/AdvReac Type Severity Reaction Status Date / Time Sulfa (Sulfonamide Allergy rash/vomiti Unverified 11/13/21 19:53 Antibiotics) ng ibuprofen AdvReac Psychosis Unverified 11/13/21 19:53 prednisone AdvReac flashes of Unverified 11/13/21 19:53 light/feels drunk General Stated Complaint: Fever TANA: 3 Review of Systems All systems reviewed & are unremarkable except as noted in HPI and below Constitutional Constitutional: Reports body ache(s), Denies chills, Denies excessive sweating, Denies fatigue, Reports fever(s), Reports headache(s), Denies weakness and Denies weight loss Eyes Eyes: Reports system reviewed and no additional complaints, except as documented and Denies blurry vision ENT Ears, Nose, Mouth, and Throat: Denies vertigo, Denies dizziness, Denies otalgia, Reports headache(s), Reports nasal congestion, Denies sore throat and Denies throat swelling Cardiovascular Cardiovascular: Denies chest pain, Denies syncope, Denies rapid heart rate and Reports dyspnea Respiratory Respiratory: Denies chest congestion, Reports cough, Denies pain on inspiration and Reports dyspnea Gastrointestinal Gastrointestinal: Reports abdominal pain, Denies diarrhea, Reports nausea and Reports vomiting Genitourinary Genitourinary: Denies hematuria, Reports dysuria, Denies flank pain, Reports urinary hesitancy, Reports urinary urgency and Reports other (urinary frequency) Musculoskeletal Musculoskeletal: Reports back pain and Denies joint swelling Integumentary/Breasts Skin/Breast: Denies lesions and Denies rash Neurologic Neurologic: Denies behavioral changes, Denies confusion, Denies vertigo, Denies dizziness, Denies syncope, Reports headache(s), Denies localized weakness and Denies weakness Psychiatric Psychiatric: Denies behavioral changes, Denies confusion and Denies depression Endocrine Endocrine: Denies excessive sweating and Denies fatigue Hematologic/Lymphatic Hematologic/Lymphatic: Denies easy bruising and Denies lymphadenopathy Allergic/Immunologic Allergic/Immunologic: Denies throat swelling PFSH All Active Problems (Updated 11/13/21 @ 23:47 by Cherri Casey DO) Abscess, dental (Acute) Nonspecific syndrome suggestive of viral illness (Acute) Fever (Acute) COVID-19 (Acute) Screening for STD (sexually transmitted disease) (Acute) Discharge planning issues (Acute) DVT prophylaxis (Acute) Viral gastroenteritis (Acute) Hot flashes due to surgical menopause (Acute) Prediabetes (Acute) Long-term current use of methadone for opiate dependence (Acute) Vomiting (Acute) Fever (Acute) Pyelonephritis (Acute) Acute tonsillitis (Acute 05/31/13) deep vein thrombosis with complication (Acute 04/07/13) received Lovenox during her pregnancies. Bleeding of cervix (Acute 05/03/16) s/p supracervical hysterectomy 2013. Has spotting. Blood glucose abnormal (Acute 03/16/13) Candidal vulvovaginitis (Acute 08/27/13) Choking sensation (Acute 08/30/13) Chronic low back pain without sciatica (Acute 05/03/16) Neg MRI, neg neuro w/u. Most likely neuroskeletal in origin. Chronic pelvic pain in female (Acute 04/14/13) Dysmenorrhea (Acute 06/21/13) Endometriosis (Acute 05/23/16) Fibromyalgia (Acute 05/23/16) Flank pain (Acute 05/23/16) GDM (gestational diabetes mellitus), class A1 (Acute 05/03/16) with previous pregnancies. Random HgbA1c have been normal. 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 Restless leg syndrome (Acute 05/23/16) Disorder of sacrum (Acute) Chronic pain (Acute) Fibromyalgia (Acute) Gastroenteritis due to Cryptosporidium (Acute) Diarrhea with dehydration (Acute) Hypokalemia (Acute) Medical History deep vein thrombosis with complication Depression Impaired glucose tolerance during . HgbA1c have been normal. Irritable colon Menorrhagia 12/2012 continued bleeding after PP endometritis. No response to abx/Norethindrone. Nl imaging studies. 06/23/13 hysteroscopy, D+C and Mirena IUD insertion. 11/2013 Pt had laparotomy for supracervical hysterectomy at [facility]. Positive urine drug screen 03/19/16 for Codeine and Morphine at time of admission for gastroenteritis. Subclinical hypothyroidism during 3rd . Surgical History section 08/06/2006 PCD arrest of descent 11/27/2007 RCD with BTL 11/12/2012 Repeat CD at term [facility]. Uterine atony immediately post op Office EMBx 01/11/13 @ [facility] c/w chronic endometritis. 11/13 Admitted to [facility] with fever and pelvic pain s/p IV abx x3day Dilation and curettage (06/23/13) diagnostic hysteroscopy with insertion of Mirena IUD. Benign pathology. No endometritis or adenomyosis Hysterectomy, Laproscopic November 2013 [facility] converted to supracervical hysterectomy at [facility]. Ligation of fallopian tube (11/27/07) RCD with bilateral fimbriectomy. Sigmoidoscopy Family History Father Diabetes Heart disease father 50yo from heart failure. Hyperlipidemia Grandmother Diabetes paternal uncle Mental disorder drug use and eventually suicide Social History Smoking/Tobacco Use Status: Never Smoking risk assessment performed?: Yes Alcohol Intake: current Alcohol Intake frequency: a few times a month Alcohol type: wine Drug use: Current Sobriety Substance use type: does not use Details: methadone clinic Do you feel safe at home: Yes Do you feel safe in your relationship?: Yes Exam Const General: cooperative and ill appearing acutely Nutritional Appearance: thin Orientation: alert, awake and oriented x3 HENMT Head: normal to inspection Ears: hearing grossly normal bilaterally, external ears normal and TM's normal bilaterally General nose exam: external nose normal Face and sinus: normal facial exam Mouth: oral mucosae normal Teeth and gingiva: dentition normal Throat: posterior oropharynx normal Eyes General: appearance normal, both eyes and all related structures Eyelids: eyelids normal Pupils: PERRL EOM: EOM intact bilaterally Neck Neck: normal visual inspection, no meningeal signs, trachea midline, supple, no anterior neck swelling and No submandibular swelling Lymphatic: no lymphadenopathy noted Chest Chest: normal inspection of the chest Resp Effort & Inspection: normal respiratory effort and able to speak in complete sentences Auscultation: clear to auscultation bilaterally Cardio Rate: tachycardic Rhythm: regular rhythm GI Inspection: normal to inspection Palpation: soft, not firm, no guarding, no hepatosplenomegaly, no masses and nontender Auscultation: hypoactive bowel sounds Back/Spine/Pelvis Back: no CVA tenderness Thoracic/Lumbar Spine: thoracic and lumbar spine normal to inspection Skin General skin exam: no rashes or lesions noted Neuro General: patient alert and patient awake Cognition: normal cognition Speech: speech normal Gait: normal gait Motor: muscle tone normal throughout Sensory Exam: no sensory deficits noted Extrem General: normal to inspection, full ROM, capillary refill normal and no edema Psych Appearance: grossly normal Mental Status: mental status grossly normal Speech and Movement: speech and movement normal Affect: normal affect Thought Process: normal
[2021-11-13] MEDS: Normal Saline 1,000 ML 1000 ML IV ×2 (20:58→22:30)
[2021-11-13] MEDS: Ketorolac 30 MG/ML VIAL IVP (20:58)
[2021-11-13] MEDS: Ondansetron 4 MG/2 ML VIAL IVP (20:58)
[2021-11-13 20:59] LABS: Lactate 1.6 mmol/L (0.6-1.4)
[2021-11-13 21:05] LABS: Abs Immature Grans 0.03 10^3/uL (0.0-0.06); Absolute Basophil Count 0.04 10^3/uL (0.0-0.2); Absolute Eosinophil Count 0.06 10^3/uL (0.0-0.7); Absolute Lymphocyte Count 0.56 10^3/uL (1.2-3.4); Absolute Monocyte Count 0.59 10^3/uL (0.1-0.8); Absolute Neutrophil Count 7.59 10^3/uL (1.2-6.7); Basophils % 0.5; Eosinophils % 0.7; HGB 10.7 g/dL (11.2-15.7); Immature Grans % 0.3; Lymphocytes % 6.3; MCH 28.5 pg (27.0-33.0); MCHC 32.4 % (32.0-36.0); MCV 88 fL (80-95); MPV 11.5 fL (8.0-11.0); Monocytes % 6.7; Neutrophils % 85.5; Platelet Count 208 10^3/uL (130-400); RBC 3.75 10^6/uL (3.93-5.22); RDW 12.1 % (11.7-14.6); RDW-SD 38.9 fL; WBC 8.87 10^3/uL (4.4-10.8)
[2021-11-13 21:09] LABS: Influenza A PCR Negative (Negative); Influenza B PCR Negative (Negative); RSV PCR Negative (Negative)
[2021-11-13 21:14] LABS: COVID-19 PCR Positive (Negative); Source Nasopharynx
[2021-11-13 21:14] LABS: ALT 22 U/L (14-59); AST 19 U/L (15-37); Albumin 3.8 g/dL (3.4-5.0); Alkaline Phosphatase 104 U/L (46-116); Anion Gap 7.5 mmol/L (3-11); BUN 13 mg/dL (7-18); Bilirubin, Total 0.1 mg/dL (0.2-1.0); CO2 28.5 mmol/L (21.0-32.0); CREATININE 0.7 mg/dL (0.55-1.02); Calcium 8.3 mg/dL (8.5-10.1); Chloride 98 mmol/L (98-107); Glucose 100 mg/dL (74-106); Lipase 52 U/L (73-393); Potassium 3.6 mmol/L (3.5-5.1); Sodium 134 mmol/L (136-145); Total Protein 7.8 g/dL (6.4-8.2)
--- NOTE | 2021-11-13 21:30 | DI.CT_ITS ---
Exam(s) CT CHEST PE ABD PELVIS W EXAM: CT CHEST PE ABD PELVIS W CLINICAL HISTORY: shortness of breath, tachycardic, elevated d dimer TECHNIQUE: CT examination of the chest, abdomen, and pelvis was performed with intravenous infusion of 100 cc of Omnipaque [address] angiography protocol. COMPARISON: CT CT ABDOMEN PELVIS WO from 11/02/2021 FINDINGS: The lungs are clear. There is no pleural effusion seen. There is no mediastinal or hilar adenopathy. Pulmonary arteries are unremarkable with no evidence of pulmonary embolic disease. Thoracic aorta and major branches appear intact with no evidence of aneurysm or dissection. No bony abnormality seen in the thorax. The liver is normal appearance. Gallbladder and bile ducts are CT normal. No abnormality seen involving the spleen. Pancreas appears intact. The adrenals are unremarkable in appearance. The kidneys appear intact with no evidence of hydroneph rosis or nephrolithiasis. Mild prominence of collecting system noted bilaterally, this is probably r elated to urinary bladder distension. No urinary tract calcification seen. Abdominal aorta and major visceral branches appear intact. No significant abdominal wall hernia seen. No significant abdominal or pelvic adenopathy. No focal bowel pathology. No evidence of appendicitis or diverticulitis. IMPRESSION: Negative CT examination of the chest, abdomen, and pelvis. RADIATION DOSE DELIVERED: 625.8mGy.cm Total DLP 625.8mGy.cm Total DLP !Error CTDIvol
[2021-11-13 21:32] LABS: D-Dimer 526 ng/mlFEU (<500)
[2021-11-13 21:46] LABS: Bilirubin Negative (Negative); Blood Trace-intact (Negative); Clarity Clear (Clear); Glucose Negative (Negative); Ketones Negative (Negative); Leukocyte Esterase Negative (Negative); Nitrite Negative (Negative); Urobilinogen 0.2 EU/dL (Up TO 0.2); pH 7.5 (5-8)
[2021-11-13 22:02] LABS: Troponin I < 50 ng/L (<or=60)
[2021-11-13 22:07] LABS: Bacteria Negative HPF (Negative); C & S Indicated? No; Casts Negative LPF (Negative); Crystals Negative HPF (Negative); Epithelial Cells Negative HPF (Negative); Mucus Negative (Negative); Other Cells Negative (Negative); RBC 0-2 HPF (0-2); WBC 0-2 HPF (0-5)
--- NOTE | 2021-11-13 22:56 | DI.VRAD_ITS ---
PROCEDURE INFORMATION: Exam: CTA Chest With Contrast Exam date and time: 11/13/2021 22:16 Age: 36 years old Clinical indication: Vomiting and other: Abdominal pain; Cough and shortness of breath; Prior surgery; Surgery date: 6+ months; Surgery type: Hysterectomy, hernia repair, patient HX: Shortness of breath, tachycardic, elevated d dimer TECHNIQUE: Imaging protocol: Computed tomographic angiography of the chest with contrast. 3D rendering (Not supervised by radiologist): MIP and/or 3D reconstructed images were created by the technologist. Radiation optimization: All CT scans at this facility use at least one of these dose optimization techniques: automated exposure control; mA and/or kV adjustment per patient size (includes targeted exams where dose is matched to clinical indication); or iterative reconstruction. Contrast material: VISIPAQUE 320; Contrast volume: 50 ml; Contrast route: INTRAVENOUS (IV); COMPARISON: CT ABDOMEN PELVIS WO 11/02/2021 21:58 FINDINGS: Pulmonary arteries: No pulmonary emboli. Aorta: No aortic aneurysm. No aortic dissection. Lungs: No airspace consolidation. Pleural spaces: No pneumothorax. No pleural effusion. Heart: No cardiomegaly. No pericardial effusion. Lymph nodes: No enlarged lymph nodes. Bones/joints: No acute fracture. Soft tissues: No suspicious lesions. IMPRESSION: No pulmonary emboli are seen. PROCEDURE INFORMATION: Exam: CT Abdomen And Pelvis With Contrast Exam date and time: 11/13/2021 22:16 Age: 36 years old Clinical indication: Vomiting and other: Abdominal pain; Cough and shortness of breath; Prior surgery; Surgery date: 6+ months; Surgery type: Hysterectomy, hernia repair, patient HX: Shortness of breath, tachycardic, elevated d dimer TECHNIQUE: Imaging protocol: Computed tomography of the abdomen and pelvis with contrast. Radiation optimization: All CT scans at this facility use at least one of these dose optimization techniques: automated exposure control; mA and/or kV adjustment per patient size (includes targeted exams where dose is matched to clinical indication); or iterative reconstruction. Contrast material: VISIPAQUE 320; Contrast volume: 50 ml; Contrast route: INTRAVENOUS (IV); COMPARISON: CT ABDOMEN PELVIS WO 11/02/2021 21:58 FINDINGS: Liver: No mass. Gallbladder and bile ducts: No calcified stones. No ductal dilation. Pancreas: No ductal dilation. No masses. Spleen: No splenomegaly or focal lesions. Adrenal glands: No mass. Kidneys and ureters: Minor dilation of the collecting systems is probably due to the distended urinary bladder and is more pronounced on the right. No renal masses. Stomach and bowel: No obstruction. No mucosal thickening. Appendix: No evidence of appendicitis. Intraperitoneal space: No free air. No significant fluid collection. Vasculature: No abdominal aortic aneurysm. Lymph nodes: No significantly enlarged lymph nodes. Urinary bladder: The urinary bladder is distended. No urinary bladder wall thickening. Reproductive: Unremarkable as visualized. Bones/joints: No acute fracture. Soft tissues: No suspicious lesions. IMPRESSION: Minor dilation of the collecting systems is probably due to the distended urinary bladder and is more pronounced on the right. Dictated and Authenticated by: Demetra Pugh MD. Ordering:ANYA Harley MD
--- NOTE | 2021-11-13 23:45 | RT.EKG_ITS ---
APPROVED REPORT Exam: Resting ECG Reason for Exam: sob Patient Location: E HR:90 bpm ECG Measurements Heart Rate 90 AXIS HI 137 P 64 QRSd 92 QRS 77 QT 372 T -1 QTc 457 Conclusion Sinus rhythm...normal P axis, V-rate 60- 99. Sinus. Normal axis. No STEMI. I have reviewed and interpreted ECG and agree with software generated interpretation.
[2021-11-13 23:53] LABS: Lactate 0.6 mmol/L (0.6-1.4)
[2021-11-14] VITALS (17 sets, daily range): RESP 14–16; TEMP 37.1; O2SAT 97–100
== END 2021-11-14 00:41 | disposition home or self-care (01) ==
PROVIDERS: Emergency Provider Physician Assistant; PCP Nurse Practitioner Family
DX: U07.1 COVID-19 (principal); R06.02 Shortness of breath; R00.0 Tachycardia, unspecified; R79.1 Abnormal coagulation profile; R10.30 Lower abdominal pain, unspecified; M54.9 Dorsalgia, unspecified
CPT/HCPCS: 71275; 74177; 80053; 83690; 87040; 87637; 93005; 96361; 96374; 96375; 99284; 99285; 81003; 81015; 83605; 84484; 85025; 85379; 93010; J1885; J2405

== ENCOUNTER 2023-02-19 14:25 | Outpatient (REF) | payer MEDICAID, SELFPAY ==
[2023-02-19 19:47] LABS: Abs Immature Grans 0.02 10^3/uL (0.0-0.06); Absolute Basophil Count 0.07 10^3/uL (0.0-0.2); Absolute Lymphocyte Count 1.91 10^3/uL (1.2-3.4); Absolute Monocyte Count 0.33 10^3/uL (0.1-0.8); Absolute Neutrophil Count 2.92 10^3/uL (1.2-6.7); Basophils % 1.3; Eosinophils % 1.9; HCT 43.3 % (36.0-46.0); HGB 13.9 g/dL (11.2-15.7); Immature Grans % 0.4; Lymphocytes % 35.7; MCH 29.1 pg (27.0-33.0); MCHC 32.1 % (32.0-36.0); MCV 91 fL (80-95); MPV 12.1 fL (8.0-11.0); Monocytes % 6.2; Neutrophils % 54.5; Platelet Count 275 10^3/uL (130-400); RBC 4.77 10^6/uL (3.93-5.22); RDW 13.5 % (11.7-14.6); RDW-SD 45.7 fL; WBC 5.35 10^3/uL (4.4-10.8)
[2023-02-19 19:49] LABS: Iron 80 ug/dL (50-170); Total Iron Binding Capacity 464 ug/dL (250-450); Transferrin Sat 17 % (15-50)
[2023-02-19 20:03] LABS: ALT 23 U/L (14-59); AST 25 U/L (15-37); Albumin 4.3 g/dL (3.4-5.0); Alkaline Phosphatase 97 U/L (46-116); Anion Gap 7.1 mmol/L (3-11); BUN 12 mg/dL (7-18); Bilirubin, Total 0.2 mg/dL (0.2-1.0); CO2 29.9 mmol/L (21.0-32.0); CREATININE 0.5 mg/dL (0.55-1.02); Calcium 9.3 mg/dL (8.5-10.1); Chloride 100 mmol/L (98-107); Estimated GFR 124.58 (mL/min/1.73m2); FREE T4 0.79 ng/dL (0.76-1.46); Glucose 100 mg/dL (74-106); Potassium 4.3 mmol/L (3.5-5.1); Sodium 137 mmol/L (136-145); TSH 1.59 uIU/mL (0.36-3.74); Total Protein 8.1 g/dL (6.4-8.2)
== END 2023-02-19 14:26 | disposition home or self-care (01) ==
LOC: NCHCN 14:25
PROVIDERS: Visit Provider Nurse Practitioner Family
DX: E03.9 Hypothyroidism, unspecified (principal); R05.3 Chronic cough; D64.9 Anemia, unspecified; N28.89 Other specified disorders of kidney and ureter
CPT/HCPCS: 80053; 83540; 83550; 84439; 84443; 85025

== ENCOUNTER → 2023-02-19 14:35 | Outpatient (CLI) | payer MEDICAID, SELFPAY ==
--- NOTE | 2023-02-19 | DI.RAD_ITS ---
Exam(s) XR CHEST 2V PA LATERAL EXAM: XR CHEST 2V PA LATERAL CLINICAL HISTORY: CHRONIC COUGH, R05.3 TECHNIQUE: 2D digital imaging was performed of the chest. Two images were obtained. PA and lateral views were obtained. COMPARISON: CR XR CHEST 2V PA LATERAL from 04/27/2019 CR,XR XR PORTABLE CHEST AP from 08/13/2019 FINDINGS: MEDIASTINUM: Normal. HEART: Normal. PULMONARY VASCULATURE: Normal. LUNGS: Clear. PLEURAL SPACE: No pleural effusion or pneumothorax. BONE:Within normal limits for the patient's age. There is a pectus excavatum deformity. OTHER FINDINGS:Normal. IMPRESSION: No acute pulmonary findings. DATA REPOSITORY: RADIATION DOSE DELIVERED:
== END ==
PROVIDERS: Visit Provider Nurse Practitioner Family
DX: R05.3 Chronic cough (principal)
CPT/HCPCS: 71046

== ENCOUNTER 2023-03-28 05:31 | Outpatient (CLI) | payer MEDICAID, SELFPAY ==
[2023-03-28] MEDS: Levalbuterol HFA 15 GM INH 4 PUFF IH (09:46)
[2023-03-28] MEDS: Inhaler, Assist Device 1 EACH MC (09:46)
--- NOTE | 2023-03-28 15:48 | W.PFT ---
Date of service: 03/28/23 Time of Service: 08:32 Pulmonary Function Test Result Indications: Chronic cough Interpretation Spirometry: There is no airflow limitation. There is no significant bronchodilator response. Lung Volumes: Normal lung volumes Diffusion Capacity: Normal diffusion Airway Pressure: Normal airways resistance Impression Normal pulmonary function Clinical Correlation therefore is recommended.
== END 2023-03-28 05:32 | disposition home or self-care (01) ==
LOC: RT 05:32
PROVIDERS: PCP Nurse Practitioner Family; Visit Provider Nurse Practitioner Family
DX: R05.3 Chronic cough (principal); R07.89 Other chest pain; R06.02 Shortness of breath
CPT/HCPCS: 94060; 94726; 94729

== ENCOUNTER 2023-05-20 19:51 | Outpatient (REF) | payer MEDICAID, SELFPAY | END 2023-05-20 19:52 | disposition home or self-care (01) | LOC: NCHCN 19:51 | PROVIDERS: PCP Nurse Practitioner Family; Visit Provider Nurse Practitioner Family | DX: R35.0 Frequency of micturition (principal) | CPT/HCPCS: 87086 ==

== ENCOUNTER 2023-07-24 14:17 | Outpatient (CLI) | payer MEDICAID, SELFPAY ==
[2023-07-24 14:06] LABS: Abs Immature Grans 0.02 10^3/uL (0.0-0.06); Absolute Basophil Count 0.08 10^3/uL (0.0-0.2); Absolute Eosinophil Count 0.14 10^3/uL (0.0-0.7); Absolute Lymphocyte Count 2.17 10^3/uL (1.2-3.4); Absolute Neutrophil Count 4.92 10^3/uL (1.2-6.7); Eosinophils % 1.8; HCT 40.8 % (36.0-46.0); HGB 13.2 g/dL (11.2-15.7); Immature Grans % 0.3; Lymphocytes % 28.1; MCHC 32.4 % (32.0-36.0); MCV 90 fL (80-95); MPV 10.6 fL (8.0-11.0); Monocytes % 5.2; Neutrophils % 63.6; Platelet Count 274 10^3/uL (130-400); RBC 4.55 10^6/uL (3.93-5.22); RDW 12.8 % (11.7-14.6); WBC 7.73 10^3/uL (4.4-10.8)
[2023-07-25 15:26] LABS: IgE 75 IU/mL (<158)
[2023-07-28 21:24] LABS: False Ragweed, IgE <0.10 kU/L (<0.70)
[2023-07-28 21:45] LABS: Aspergillus Fumigatus IgE <0.10 kU/L (<0.70); Aspergillus Niger, IgE <0.10 kU/L (<0.70); Candida Albicans (Monilia),IgE <0.10 kU/L (<0.70); Cat Epithelium IgE 0.27 kU/L (<0.70); Cockroach IgE <0.10 kU/L (<0.70); D Farinae IgE <0.10 kU/L (<0.70); D Pteronyssinus IgE <0.10 kU/L (<0.70); Dog Dander IgE 0.11 kU/L (<0.70); Eastern Sycamore IgE 0.26 kU/L (<0.70); Goldenrod IgE <0.10 kU/L (<0.70); Oak IgE 0.21 kU/L (<0.70); Penicillium chrysogenum IgE <0.10 kU/L (<0.70); Short Ragweed IgE <0.10 kU/L (<0.70); Silver Birch IgE 0.17 kU/L (<0.70)
== END 2023-07-24 14:18 | disposition home or self-care (01) ==
LOC: LBO 14:18
PROVIDERS: PCP Nurse Practitioner Family; Visit Provider Physician Assistant Surgical
DX: J45.909 Unspecified asthma, uncomplicated (principal)
CPT/HCPCS: 36415; 82785; 85025; 86003

== ENCOUNTER 2023-08-01 09:57 | Emergency (ER) | payer MEDICAID, SELFPAY ==
[2023-08-01 10:07] VITALS: BP 131/70; PULSE 91; RESP 18; TEMP 36.4; O2SAT 100
--- NOTE | 2023-08-01 10:21 | ED.GENADUL_ITS ---
HPI General Mode of arrival: ambulatory . Date/Time Provider Initiated Documentation: 08/01/23 10:01 . Limitations to Documentation: no limitations . Information obtained by: patient . History of Present Illness 37 year old F presents to the emergency department with the chief complaint of n/v, described as moderate, Patient started experiencing this day(s) (1) and it has been intermittent. No relieving factors improve symptom(s), No exacerbating factors reported . Patient notes other (right lower back pain, chills). Related Data Home Medications Medication Instructions Recorded Confirmed pantoprazole 40 mg tablet,delayed 40 mg PO DAILY 03/19/13 08/01/23 release methylphenidate HCl 20 mg tablet 20 mg PO QAM 03/18/17 08/01/23 (Ritalin) estradiol 1 mg tablet 2 mg PO DAILY 08/13/19 08/01/23 ondansetron 4 mg disintegrating 4 mg PO TID-QID PRN nausea and 11/02/21 08/01/23 tablet vomiting #20 tabs acyclovir 800 mg tablet 800 mg PO BID PRN herpes 5 days 01/02/22 08/01/23 #10 tabs cetirizine 10 mg capsule (All Day 10 mg PO DAILY PRN 03/13/23 08/01/23 Allergy (cetirizine)) buspirone 7.5 mg tablet 7.5 mg PO TID 07/18/23 08/01/23 albuterol 90 mcg-budesonide 80 2 inh inhalation ONCE #10.7 grams 07/24/23 08/01/23 mcg/actuation HFA aerosol inhaler (Airsupra) dexmethylphenidate 30 mg 20 mg PO DAILY 07/24/23 08/01/23 capsule,extended release [id number] (Focalin XR) Previous Rx's Medication Instructions Recorded ondansetron 4 mg disintegrating 4 mg PO TID-QID PRN nausea and 11/02/21 tablet vomiting #20 tabs acyclovir 800 mg tablet 800 mg PO BID PRN herpes 5 days 01/02/22 #10 tabs albuterol 90 mcg-budesonide 80 2 inh inhalation ONCE #10.7 grams 07/24/23 mcg/actuation HFA aerosol inhaler (Airsupra) Allergies Allergy/AdvReac Type Severity Reaction Status Date / Time Sulfa (Sulfonamide Allergy rash/vomiti Unverified 08/01/23 10:03 Antibiotics) ng fluoxetine AdvReac nausea and Verified 08/01/23 10:03 feeling cloudy minded ibuprofen AdvReac Psychosis Unverified 08/01/23 10:03 prednisone AdvReac flashes of Unverified 08/01/23 10:03 light/feels drunk General Stated Complaint: Urinary TANA: 3 Review of Systems All systems reviewed & are unremarkable except as noted in HPI and below Cardiovascular Cardiovascular: Denies chest pain and Denies dyspnea Respiratory Respiratory: Denies cough and Denies dyspnea Gastrointestinal Gastrointestinal: Reports nausea and Reports vomiting Genitourinary Genitourinary: Denies dysuria Musculoskeletal Musculoskeletal: Denies joint swelling Integumentary/Breasts Skin/Breast: Denies rash Psychiatric Psychiatric: Denies depression Course Vital Signs Vital signs: Vital Signs Temperature 36.4 C L 08/01/23 10:07 Pulse 91 H 08/01/23 10:07 Respiratory Rate 18 08/01/23 10:07 Blood Pressure 131/70 08/01/23 10:07 Pulse Oximetry 100 08/01/23 10:07 Temperature 36.4 C L 08/01/23 10:07 Temperature Source Oral 08/01/23 10:07 Pulse 91 H 08/01/23 10:07 Respiratory Rate 18 08/01/23 10:07 Respiratory Effort Normal, Non-Labored 08/01/23 10:10 Blood Pressure 131/70 08/01/23 10:07 Blood Pressure Position Sitting 08/01/23 10:07 Pulse Oximetry 100 08/01/23 10:07 Pain Level 5 08/01/23 10:07 Medical Decision Making 37-year-old female with a history of GERD, asthma, anxiety, who comes in with 1 day of lower back right more than left pain, nausea vomiting and chills. She states she went to urgent care yesterday and had a urine done and was told she had an infection, so she was put on cephalexin after getting IM ceftriaxone. She states states despite this she still has the right lower back pain, urinary urgency, and nausea vomiting along with chills. She denies chest pain, difficulty breathing. No fevers that she is aware of. She is alert and oriented x 4 on arrival speaking in full sentences in no distress. She has a soft nontender abdomen on exam, has some right CVA tenderness, and has some right lower back tenderness lateral to the midline, no saddle anesthesia, intact distal sensation and pulses. She denies IV drug use. Unclear etiology for her symptoms but given the urinary symptoms and right flank pain we will proceed with UA, CBC, CMP, and CT renal colic to evaluate for possible kidney stone. No findings on exam or history to suggest entities such as spinal epidural abscess. labs show k of 2.9 otherwise benign, tolerated oral repletion, ua not consistent with obvious uti and ct renal colic unremarkable. Pt feels better and toleratig po, no abdominal tenderness. Suspect she could have a gastroenteritis developing, she is stable for d/c, advised to f/u with PCP and return precautions given Differential Diagnosis Differential Diagnosis: Gastroenteritis, kidney stone, pyelonephritis Medical Records Medical records reviewed: Yes I reviewed the patient's medical records. Imaging Data Radiologic Study: Attestation: I personally reviewed and interpreted this imaging study as follows: Imaging: CT Scan Radiologist's impression: IMPRESSION: 1. No evidence of nephrolithiasis or hydronephrosis. 2. No evidence of appendicitis. Lab Data Lab results reviewed: Yes I reviewed the patient's lab results. Quality:SDOH Health Related Social Needs: No Data to Display PFSH All Active Problems (Updated 08/01/23 @ 12:11 by Anurag Peoples MD) Nausea & vomiting (Acute) Right flank pain (Acute) Dyspnea (Acute) Kimberly-Danlos syndrome (Acute) GERD (gastroesophageal reflux disease) (Chronic) Asthma (Chronic) Anxiety disorder (Acute) Chronic post-traumatic stress disorder (PTSD) (Acute) Sciatica (Acute) Anemia (Chronic) Vision changes (Acute) Nephrolithiasis (Chronic) Complex regional pain syndrome I, unspecified (Acute) Syncope (Chronic) Hip pain (Acute) Headache (Acute) Tachycardia (Acute) Knee pain (Acute) Ingrown toenail (Acute) infected Edema (Acute) Rash (Acute) SOB (shortness of breath) (Acute) Cellulitis of foot (Acute) Mold exposure (Acute) Chest tightness (Acute) Environmental and seasonal allergies (Acute) Chronic cough (Acute) COVID-19 (Acute) Screening for STD (sexually transmitted disease) (Acute) Discharge planning issues (Acute) DVT prophylaxis (Acute) Viral gastroenteritis (Acute) Hot flashes due to surgical menopause (Acute) Prediabetes (Acute) Long-term current use of methadone for opiate dependence (Acute) Vomiting (Acute) Fever (Acute) Pyelonephritis (Acute) Acute tonsillitis (Acute 05/31/13) deep vein thrombosis with complication (Acute 04/07/13) received Lovenox during her pregnancies. Bleeding of cervix (Acute 05/03/16) s/p supracervical hysterectomy 2013. Has spotting. Blood glucose abnormal (Acute 03/16/13) Candidal vulvovaginitis (Acute 08/27/13) Choking sensation (Acute 08/30/13) Chronic low back pain without sciatica (Acute 05/03/16) Neg MRI, neg neuro w/u. Most likely neuroskeletal in origin. Chronic pelvic pain in female (Acute 04/14/13) Dysmenorrhea (Acute 06/21/13) Endometriosis (Acute 05/23/16) Fibromyalgia (Acute 05/23/16) Flank pain (Acute 05/23/16) GDM (gestational diabetes mellitus), class A1 (Acute 05/03/16) with previous pregnancies. Random HgbA1c have been normal. 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 Restless leg syndrome (Acute 05/23/16) Disorder of sacrum (Acute) Chronic pain (Acute) Fibromyalgia (Acute) Gastroenteritis due to Cryptosporidium (Acute) Diarrhea with dehydration (Acute) Hypokalemia (Acute) Medical History (Updated 08/01/23 @ 12:11 by Anurag Peoples MD) Irritable colon Positive urine drug screen 03/19/16 for Codeine and Morphine at time of admission for gastroenteritis. Depression deep vein thrombosis with complication Menorrhagia 12/2012 continued bleeding after PP endometritis. No response to abx/Norethindrone. Nl imaging studies. 06/23/13 hysteroscopy, D+C and Mirena IUD insertion. 11/2013 Pt had laparotomy for supracervical hysterectomy at [facility]. Subclinical hypothyroidism during 3rd . Impaired glucose tolerance during . HgbA1c have been normal. Surgical History (Updated 07/18/23 @ 11:15 by Aubree Nguyen) Umbilical hernia repair History of colonoscopy Ligation of fallopian tube (11/27/07) RCD with bilateral fimbriectomy. Sigmoidoscopy section 08/06/2006 PCD arrest of descent 11/27/2007 RCD with BTL 11/12/2012 [address] at [address] [facility]. Uterine atony immediately post op Office EMBx 01/11/[address] [facility] c/w chronic endometritis. 11/[address] [facility] with fever and pelvic pain s/p IV abx x3day Hysterectomy, Laproscopic November 2013 [facility] converted to supracervical hysterectomy at [facility]. Dilation and curettage (06/23/13) diagnostic hysteroscopy with insertion of Mirena IUD. Benign pathology. No endometritis or adenomyosis Family History (Updated 07/24/23 @ 12:56 by Aubree Nguyen) Father Diabetes Heart disease father 50yo from heart failure. Hyperlipidemia Mental disorder Grandmother Diabetes paternal uncle Mental disorder drug use and eventually suicide Mother Anxiety Depression Social History (Updated 07/18/23 @ 11:17 by Aubree Nguyen) Smoking/Tobacco Use Status: Never Smoking risk assessment performed?: Yes Alcohol Intake: current Alcohol Intake frequency: a few times a month Alcohol type: wine Drug use: Current Sobriety Substance use type: does not use Details: methadone clinic Housing: apartment Do you feel safe at home: Yes Do you feel safe in your relationship?: Yes Discharge Plan Disposition Patient Disposition: Home Condition: Stable Discharge Details Clinical Impression: Right flank pain, Nausea & vomiting Primary Care Provider: Mago Kern ED Provider: Anurag Peoples Home Meds and New Rx's Prescriptions: Continued dexmethylphenidate [Focalin XR] 30 mg capsule,ER biphasic 50-50 20 mg PO DAILY Airsupra 90-80 mcg/actuation HFA aerosol inhaler 2 inh inhalation ONCE Qty: 10.7 12RF Rx Instructions: as a single dose; may repeat up to 6 doses per day (12 inhalations) acyclovir 800 mg tablet 800 mg PO BID PRN (Reason: herpes) 5 Days Qty: 10 4RF All Day Allergy (cetirizine) 10 mg capsule 10 mg PO DAILY PRN buspirone 7.5 mg tablet 7.5 mg PO TID pantoprazole 40 MG tablet,delayed release (DR/EC) 40 mg PO DAILY methylphenidate HCl [Ritalin] 20 MG tablet 20 mg PO QAM estradiol 1 mg Tablet 2 mg PO DAILY ondansetron 4 mg tablet,disintegrating 4 mg PO TID-QID PRN (Reason: nausea and vomiting) Qty: 20 0RF Discharge Instructions Instructions: Hypokalemia (ED), Acute Nausea and Vomiting (ED) Additional Instructions: Your blood work showed your potassium level was low, otherwise there is no concerning findings. Your CAT scan also did not show any concerning findings Follow-up with your primary care provider next week if not improving. If you feel more ill, have severe worsening pain, or persistent vomiting return to the emergency department for reevaluation
[2023-08-01 10:26] LABS: Bilirubin Negative (Negative); Blood Trace-intact (Negative); Clarity Clear (Clear); Glucose Negative (Negative); Ketones 15 mg/dL (Negative); Leukocyte Esterase Negative (Negative); Nitrite Negative (Negative); Specific Gravity >= 1.030 (1.005-1.025); Urobilinogen 0.2 mg/dL (Up to 0.2)
[2023-08-01] MEDS: Droperidol 5 MG/2 ML VIAL 2.5 MG IVP (10:38)
[2023-08-01] MEDS: Normal Saline 1,000 ML 1000 ML IV (10:39)
[2023-08-01 10:44] LABS: Abs Immature Grans 0.01 10^3/uL (0.0-0.06); Absolute Basophil Count 0.05 10^3/uL (0.0-0.2); Absolute Eosinophil Count 0.05 10^3/uL (0.0-0.7); Absolute Lymphocyte Count 2.02 10^3/uL (1.2-3.4); Absolute Monocyte Count 0.41 10^3/uL (0.1-0.8); Absolute Neutrophil Count 3.59 10^3/uL (1.2-6.7); Basophils % 0.8; Eosinophils % 0.8; Immature Grans % 0.2; MCH 29.1 pg (27.0-33.0); MCHC 32.5 % (32.0-36.0); MCV 90 fL (80-95); MPV 10.9 fL (8.0-11.0); Monocytes % 6.7; Neutrophils % 58.5; Platelet Count 274 10^3/uL (130-400); RBC 4.46 10^6/uL (3.93-5.22); RDW-SD 39.4 fL; WBC 6.13 10^3/uL (4.4-10.8)
[2023-08-01 10:54] LABS: Bacteria Rare HPF (Negative); C & S Indicated? No; Casts Negative LPF (Negative); Crystals Negative HPF (Negative); Epithelial Cells Rare HPF (Negative); Mucus Moderate (Negative); WBC 0-2 HPF (0-5)
[2023-08-01 10:58] LABS: ALT 24 U/L (14-59); AST 17 U/L (15-37); Albumin 4.2 g/dL (3.4-5.0); Alkaline Phosphatase 108 U/L (46-116); BUN 9 mg/dL (7-18); Bilirubin, Total 0.2 mg/dL (0.2-1.0); CREATININE 0.7 mg/dL (0.55-1.02); Calcium 8.6 mg/dL (8.5-10.1); Chloride 102 mmol/L (98-107); Estimated GFR 114.88 (mL/min/1.73m2); Glucose 109 mg/dL (74-106); Lipase 18 U/L (16-77); Magnesium 2.1 mg/dL (1.8-2.4); Sodium 141 mmol/L (136-145); Total Protein 8.4 g/dL (6.4-8.2)
[2023-08-01 11:00] LABS: Potassium 2.9 mmol/L (3.5-5.1)
[2023-08-01] MEDS: Potassium Chloride 20 MEQ TABCR 80 MEQ PO (11:07)
--- NOTE | 2023-08-01 11:22 | DI.CT_ITS ---
Exam(s) CT RENAL COLIC WO EXAM: CT RENAL COLIC WO CLINICAL HISTORY: right flank pain. TECHNIQUE: Imaging Protocol: Axial computed tomography images with coronal and sagittal reformatted images were created and reviewed. COMPARISON: CT CT ABDOMEN PELVIS WO from 11/02/[address] CHEST PE ABD PELVIS W from 11/13/2021 FINDINGS: ABDOMEN: Lung Bases: Normal where visualized. Liver: Normal density. No measurable mass. Gallbladder and biliary tract: No radiodense calculus or biliary ductal dilation. Pancreas: Normal density, no abnormal calcifications or inflammatory process. Spleen: Normal. Kidneys: Normal size, contour and axis.No radiodense stones or obstructive uropathy. No masses seen. Adrenal glands: No mass is seen. Lymph nodes: Within normal limits. Abdominal Aorta: Abdominal portion non-dilated. PELVIS: Bladder:Symmetric distention, no gross wall thickening. Bowel: No obstruction or bowel wall thickening. No evidence of appendicitis. Peritoneal cavity: No ascites, collection or mesenteric inflammatory response. No free air. Reproductive organs: Unremarkable as visualized. Bones: Within normal limits. Soft Tissues: Within normal limits. IMPRESSION: 1. No evidence of nephrolithiasis or hydronephrosis. 2. No evidence of appendicitis. RADIATION DOSE DELIVERED: 572.23mGy.cm Total DLP DATA REPOSITORY: All CT scans at this facility are submitted to the National Radiology Data Registry (NRDR) Dose Index Registry (DIR) with the [employer] (A[employer]). RADIATION OPTIMIZATION: All CT scans at this facility use at least one of these dose optimization te chniques: automated exposure control; mA and/or kV adjustment per patient size (includes targeted exa ms where dose is matched to clinical indication); or iterative reconstruction.
[2023-08-01 12:00] LABS: COVID-19 PCR Negative (Negative); Influenza A PCR Negative (Negative); Influenza B PCR Negative (Negative); RSV PCR Negative (Negative)
[2023-08-01 12:19] LABS: Source Nasopharynx
== END 2023-08-01 12:18 | disposition home or self-care (01) ==
PROVIDERS: Emergency Provider Emergency Medicine; PCP Nurse Practitioner Family
DX: R11.2 Nausea with vomiting, unspecified (principal); R19.7 Diarrhea, unspecified; R10.9 Unspecified abdominal pain; Z11.52 Encounter for screening for COVID-19
CPT/HCPCS: 80053; 83690; 87637; 96361; 96374; 99284; 74176; 81003; 81015; 83735; 85025; 87086; J1790

== ENCOUNTER 2023-09-17 13:45 | Outpatient (REF) | payer MEDICAID, SELFPAY ==
[2023-09-17 19:29] LABS: Abs Immature Grans 0.01 10^3/uL (0.0-0.06); Absolute Basophil Count 0.06 10^3/uL (0.0-0.2); Absolute Lymphocyte Count 2.16 10^3/uL (1.2-3.4); Absolute Monocyte Count 0.39 10^3/uL (0.1-0.8); Absolute Neutrophil Count 4.01 10^3/uL (1.2-6.7); Basophils % 0.9; Eosinophils % 1.5; HCT 41.6 % (36.0-46.0); HGB 13.1 g/dL (11.2-15.7); Immature Grans % 0.1; Lymphocytes % 32.1; MCHC 31.5 % (32.0-36.0); MCV 92 fL (80-95); MPV 11.4 fL (8.0-11.0); Monocytes % 5.8; Neutrophils % 59.6; Platelet Count 258 10^3/uL (130-400); RBC 4.51 10^6/uL (3.93-5.22); RDW 12.8 % (11.7-14.6); RDW-SD 43.5 fL; WBC 6.73 10^3/uL (4.4-10.8)
[2023-09-17 19:40] LABS: ALT 30 U/L (14-59); AST 21 U/L (15-37); Albumin 4.1 g/dL (3.4-5.0); Alkaline Phosphatase 108 U/L (46-116); Anion Gap 9.6 mmol/L (3-11); BUN 10 mg/dL (7-18); Bilirubin, Total 0.1 mg/dL (0.2-1.0); CO2 28.4 mmol/L (21.0-32.0); CREATININE 0.5 mg/dL (0.55-1.02); Calcium 8.9 mg/dL (8.5-10.1); Chloride 106 mmol/L (98-107); Estimated GFR 124.58 (mL/min/1.73m2); Glucose 112 mg/dL (74-106); Sodium 144 mmol/L (136-145); Total Protein 8.1 g/dL (6.4-8.2)
== END 2023-09-17 13:46 | disposition home or self-care (01) ==
LOC: NCHCN 13:45
PROVIDERS: PCP Nurse Practitioner Family; Visit Provider Nurse Practitioner Family
DX: R04.0 Epistaxis (principal); R10.32 Left lower quadrant pain
CPT/HCPCS: 80053; 85025

== ENCOUNTER 2023-11-13 12:56 | Emergency (ER) | payer MEDICAID, SELFPAY ==
[2023-11-13 12:59] VITALS: BP 147/89; PULSE 114; RESP 18; TEMP 37.1; O2SAT 96
--- NOTE | 2023-11-13 13:13 | ED.GENADUL_ITS ---
Discharge Plan Disposition Patient Disposition: Home Discharge Details Clinical Impression: Acute viral pharyngitis Primary Care Provider: Unknown,Unknown ED Provider: Fidencio Bryson Home Meds and New Rx's Prescriptions: New cetirizine 10 mg tablet 10 mg PO DAILY PRNQty: 7 0RF benzonatate 100 mg capsule 100 mg PO BID PRNQty: 7 0RF Continued dexmethylphenidate [Focalin XR] 30 mg capsule,ER biphasic 50-50 20 mg PO DAILY Airsupra 90-80 mcg/actuation HFA aerosol inhaler 2 inh inhalation ONCE Qty: 10.7 12RF Rx Instructions: as a single dose; may repeat up to 6 doses per day (12 inhalations) All Day Allergy (cetirizine) 10 mg capsule 10 mg PO DAILY PRN buspirone 7.5 mg tablet 7.5 mg PO TID PRN pantoprazole 40 MG tablet,delayed release (DR/EC) 40 mg PO DAILY methylphenidate HCl [Ritalin] 20 MG tablet 20 mg PO QAM estradiol 1 mg Tablet 2 mg PO DAILY ondansetron 4 mg tablet,disintegrating 4 mg PO TID-QID PRN (Reason: nausea and vomiting) Qty: 20 0RF Discharge Instructions Instructions: Upper Respiratory Infection (ED) Additional Instructions: You are seen in the emergency department for your cough. Your strep swab was negative. As we discussed you will receive a call if your strep swab grows positive in the lab or if you test positive for COVID influenza or RSV. Please return to the emergency department if you develop fevers or cannot eat or drink. Please take the medicines for cough that have been sent electronically to your pharmacy. Please otherwise follow-up next week with your primary care provider. HPI General Date/Time Provider Initiated Documentation: 11/13/23 13:13 . HPI Narrative: MDM This is an overall very well-appearing tachycardic but normothermic 38-year-old female with pharyngitis for which she will receive swab for strep and COVID influenza and RSV. Uvula midline so doubt peritonsillar abscess. Good range of motion in neck so I am not suspicious for retropharyngeal abscess. No pain out of proportion to suggest necrotizing soft tissue infection. No dental pain to suggest odontogenic source. No wheeze to suggest exacerbation of reactive airway disease. No [place] spots to suggest measles. No fevers to suggest mono. Patient not been vomiting so my suspicion for any acute electrolyte a bnormalities was exceedingly low so I did not feel that she required assessment of her electrolytes. Given pharyngitis we will treat with dexamethasone and use benzonatate for cough. Given no fevers and no abnormal lung sounds my suspicion is low for pneumonia so I did not obtain a chest x-ray. Patient's vital signs are notable for tachycardia. She has been tachycardic in the past. Bilateral ears clear with no bulging TM so my suspicion is low for acute otitis media. Given no chest pain my suspicion is low for PE so I did not send a D- dimer. She may have trace middle ear effusions secondary to her most likely viral pharyngitis. Will monitor in the ED. 12:26 PM Negative rapid strep test. 1:42 PM Patient's heart rate improved to 99 without intervention. I discussed with patient her results. I advised her that I would call if her COVID influenza or RSV returned positive. I sent benzonatate prescription and cetirizine to the patient's pharmacy in the event that there is a component of asthma to her cough. Advised ED return for fevers inability to tolerate p.o. or worsening cough. Otherwise advised primary care follow-up. Patient understood her return indications and was discharged with an empiric trial of expectant outpatient management. HPI This is a 38-year-old female arrived to the emergency department via private vehicle in the setting of sore throat. Patient reports that her friend recently tested positive for strep pharyngitis and is receiving antibiotics. Patient noted to her sore throat began being sore last night and she has had a cough. She said that her cough is interfering with her sleep. She denies chest pain. She feels short of breath only when she coughs. She denies routine tobacco, ethanol, and illicits. She took ibuprofen at 11:30 AM this morning. She denies chest pain nausea vomiting dysuria frequency. She has not recently had any travel. Exam General: Well-appearing in no acute distress speaking in complete sentences. Intermittently coughing Head: Normocephalic, atraumatic. Eye: Extraocular eye movements intact. No conjunctival injection. No scleral icterus. Ear, nose, mouth, throat: Mild posterior oropharynx erythema. No palatal petechiae. Uvula midline. Normal voice, handling secretions normally. Neck: Trachea midline. Good range of motion in neck. Cardiovascular: Well-perfused distal extremities. Rapid regular rate Respiratory: Nonlabored respiration. Clear lungs bilaterally. No prolonged expiratory phase. Gastrointestinal: Nondistended abdomen. Musculoskeletal: No edema. Moving all 4 extremities spontaneously. Skin: Normal for age and race, grossly normal temperature and turgor. No acute rash. Neurologic: Alert and appropriate, no apparent acute deficits. Psychiatric: Mood and manner are appropriate. Grooming and personal hygiene are appropriate. Related Data Home Medications Medication Instructions Recorded Confirmed pantoprazole 40 mg tablet,delayed 40 mg PO DAILY 03/19/13 11/13/23 release methylphenidate HCl 20 mg tablet 20 mg PO QAM 03/18/17 11/13/23 (Ritalin) estradiol 1 mg tablet 2 mg PO DAILY 08/13/19 11/13/23 ondansetron 4 mg disintegrating 4 mg PO TID-QID PRN nausea and 11/02/21 11/13/23 tablet vomiting #20 tabs cetirizine 10 mg capsule (All Day 10 mg PO DAILY PRN 03/13/23 11/13/23 Allergy (cetirizine)) buspirone 7.5 mg tablet 7.5 mg PO TID PRN 07/18/23 11/13/23 albuterol 90 mcg-budesonide 80 2 inh inhalation ONCE #10.7 grams 07/24/23 11/13/23 mcg/actuation HFA aerosol inhaler (Airsupra) dexmethylphenidate 30 mg 20 mg PO DAILY 07/24/23 11/13/23 capsule,extended release [id number] (Focalin XR) benzonatate 100 mg capsule 100 mg PO BID PRN #7 caps 11/13/23 cetirizine 10 mg tablet 10 mg PO DAILY PRN #7 tabs 11/13/23 Previous Rx's Medication Instructions Recorded ondansetron 4 mg disintegrating 4 mg PO TID-QID PRN nausea and 11/02/21 tablet vomiting #20 tabs albuterol 90 mcg-budesonide 80 2 inh inhalation ONCE #10.7 grams 07/24/23 mcg/actuation HFA aerosol inhaler (Airsupra) benzonatate 100 mg capsule 100 mg PO BID PRN #7 caps 11/13/23 cetirizine 10 mg tablet 10 mg PO DAILY PRN #7 tabs 11/13/23 Allergies Allergy/AdvReac Type Severity Reaction Status Date / Time Sulfa (Sulfonamide Allergy rash/vomiti Unverified 11/13/23 13:10 Antibiotics) ng fluoxetine AdvReac nausea and Verified 11/13/23 13:10 feeling cloudy minded ibuprofen AdvReac Psychosis Unverified 11/13/23 13:10 prednisone AdvReac flashes of Unverified 11/13/23 13:10 light/feels drunk General Stated Complaint: RespSymp TANA: 3 Course Vital Signs Vital signs: Vital Signs Temperature 37.1 C 11/13/23 12:59 Pulse 114 H 11/13/23 12:59 Respiratory Rate 18 11/13/23 12:59 Blood Pressure 147/89 H 11/13/23 12:59 Pulse Oximetry 96 11/13/23 12:59 Temperature 37.1 C 11/13/23 12:59 Temperature Source Temporal Artery Scan 11/13/23 12:59 Pulse 114 H 11/13/23 12:59 Respiratory Rate 18 11/13/23 12:59 Respiratory Effort Normal 11/13/23 13:10 Respiratory Depth Normal 11/13/23 13:10 Blood Pressure 147/89 H 11/13/23 12:59 Blood Pressure Position Sitting 11/13/23 12:59 Pulse Oximetry 96 11/13/23 12:59 Oxygen Delivery Method Room Air 11/13/23 12:59 Oxygen Flow Rate 0 11/13/23 12:59 Pain Level 5 11/13/23 12:59 Medical Decision Making Quality:SDOH Health Related Social Needs: No Data to Display PFSH All Active Problems (Updated 11/13/23 @ 13:39 by Fidencio Bryson MD) Acute viral pharyngitis (Acute) Dyspnea (Acute) Kimberly-Danlos syndrome (Acute) GERD (gastroesophageal reflux disease) (Chronic) Asthma (Chronic) Anxiety disorder (Acute) Chronic post-traumatic stress disorder (PTSD) (Acute) Sciatica (Acute) Anemia (Chronic) Vision changes (Acute) Nephrolithiasis (Chronic) Complex regional pain syndrome I, unspecified (Acute) Syncope (Chronic) Hip pain (Acute) Headache (Acute) Tachycardia (Acute) Knee pain (Acute) Ingrown toenail (Acute) infected Edema (Acute) Rash (Acute) SOB (shortness of breath) (Acute) Cellulitis of foot (Acute) Mold exposure (Acute) Chest tightness (Acute) Environmental and seasonal allergies (Acute) Chronic cough (Acute) COVID-19 (Acute) Screening for STD (sexually transmitted disease) (Acute) Discharge planning issues (Acute) DVT prophylaxis (Acute) Viral gastroenteritis (Acute) Hot flashes due to surgical menopause (Acute) Prediabetes (Acute) Long-term current use of methadone for opiate dependence (Acute) Vomiting (Acute) Fever (Acute) Pyelonephritis (Acute) Acute tonsillitis (Acute 05/31/13) deep vein thrombosis with complication (Acute 04/07/13) received Lovenox during her pregnancies. Bleeding of cervix (Acute 05/03/16) s/p supracervical hysterectomy 2013. Has spotting. Blood glucose abnormal (Acute 03/16/13) Candidal vulvovaginitis (Acute 08/27/13) Choking sensation (Acute 08/30/13) Chronic low back pain without sciatica (Acute 05/03/16) Neg MRI, neg neuro w/u. Most likely neuroskeletal in origin. Chronic pelvic pain in female (Acute 04/14/13) Dysmenorrhea (Acute 06/21/13) Endometriosis (Acute 05/23/16) Fibromyalgia (Acute 05/23/16) Flank pain (Acute 05/23/16) GDM (gestational diabetes mellitus), class A1 (Acute 05/03/16) with previous pregnancies. Random HgbA1c have been normal. 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 Restless leg syndrome (Acute 05/23/16) Disorder of sacrum (Acute) Chronic pain (Acute) Fibromyalgia (Acute) Gastroenteritis due to Cryptosporidium (Acute) Diarrhea with dehydration (Acute) Hypokalemia (Acute) Medical History (Updated 11/13/23 @ 13:39 by Fidencio Bryson MD) Irritable colon Positive urine drug screen 03/19/16 for Codeine and Morphine at time of admission for gastroenteritis. Depression deep vein thrombosis with complication Menorrhagia 12/2012 continued bleeding after PP endometritis. No response to abx/Norethindrone. Nl imaging studies. 06/23/13 hysteroscopy, D+C and Mirena IUD insertion. 11/2013 Pt had laparotomy for supracervical hysterectomy at [facility] [place]. Subclinical hypothyroidism during 3rd . Impaired glucose tolerance during . HgbA1c have been normal. Surgical History (Updated 07/18/23 @ 11:15 by Aubree Nguyen) Umbilical hernia repair History of colonoscopy Ligation of fallopian tube (11/27/07) RCD with bilateral fimbriectomy. Sigmoidoscopy section 08/06/2006 PCD arrest of descent 11/27/2007 RCD with BTL 11/12/2012 Repeat CD at term [facility] [place]. Uterine atony immediately post op Office EMBx 01/11/13 @ [facility] [place] c/w chronic endometritis. 11/13 Admitted to [facility] [place] with fever and pelvic pain s/p IV abx x3day Hysterectomy, Laproscopic November 2013 [facility] converted to supracervical hysterectomy at [facility] [place]. Dilation and curettage (06/23/13) diagnostic hysteroscopy with insertion of Mirena IUD. Benign pathology. No endometritis or adenomyosis Family History (Updated 07/24/23 @ 12:56 by Aubree Nguyen) Father Diabetes Heart disease father 50yo from heart failure. Hyperlipidemia Mental disorder Grandmother Diabetes paternal uncle Mental disorder drug use and eventually suicide Mother Anxiety Depression Social History (Updated 07/18/23 @ 11:17 by Aubree Nguyen) Smoking/Tobacco Use Status: Never Smoking risk assessment performed?: Yes Alcohol Intake: current Alcohol Intake frequency: a few times a month Alcohol type: wine Drug use: Current Sobriety Substance use type: does not use Details: methadone clinic Housing: apartment Do you feel safe at home: Yes Do you feel safe in your relationship?: Yes
[2023-11-13] MEDS: Benzonatate 100 MG CAP PO (13:27)
[2023-11-13] MEDS: Dexamethasone 4 MG TAB PO (13:27)
[2023-11-13 14:01] LABS: COVID-19 PCR Negative (Negative); Influenza A PCR Negative (Negative); Influenza B PCR Negative (Negative); RSV PCR Negative (Negative)
[2023-11-13 14:07] VITALS: PULSE 99; RESP 15; O2SAT 99
[2023-11-13 14:33] LABS: Source Nasopharynx
== END 2023-11-13 13:48 | disposition home or self-care (01) ==
PROVIDERS: Emergency Provider Emergency Medicine
DX: J02.8 Acute pharyngitis due to other specified organisms; R05.9 Cough, unspecified; Z79.899 Other long term (current) drug therapy
CPT/HCPCS: 87637; 87880; 99283; 87081; 99284; J8540

== ENCOUNTER 2023-12-19 15:38 | Outpatient (REF) | payer MEDICAID, SELFPAY ==
[2023-12-19 18:37] LABS: Abs Immature Grans 0.01 10^3/uL (0.0-0.06); Absolute Basophil Count 0.03 10^3/uL (0.0-0.2); Absolute Eosinophil Count 0.08 10^3/uL (0.0-0.7); Absolute Lymphocyte Count 1.81 10^3/uL (1.2-3.4); Absolute Monocyte Count 0.51 10^3/uL (0.1-0.8); Absolute Neutrophil Count 2.67 10^3/uL (1.2-6.7); Basophils % 0.6 %; Eosinophils % 1.6 %; HCT 36.4 % (36.0-46.0); HGB 11.9 g/dL (11.2-15.7); Immature Grans % 0.2 %; Lymphocytes % 35.4 %; MCH 29.2 pg (27.0-33.0); MCHC 32.7 % (32.0-36.0); MCV 89 fL (80-95); MPV 12.3 fL (8.0-11.0); Neutrophils % 52.2 %; Platelet Count 273 10^3/uL (130-400); RBC 4.08 10^6/uL (3.93-5.22); RDW 12.5 % (11.7-14.6); WBC 5.11 10^3/uL (4.4-10.8)
[2023-12-19 18:59] LABS: ALT 25 U/L (14-59); AST 21 U/L (15-37); Albumin 3.6 g/dL (3.4-5.0); Alkaline Phosphatase 88 U/L (46-116); Anion Gap 6.6 mmol/L (3-11); BUN 7 mg/dL (7-18); Bilirubin, Total 0.16 mg/dL (0.2-1.0); CO2 29.4 mmol/L (21.0-32.0); CREATININE 0.6 mg/dL (0.55-1.02); Calcium 8.5 mg/dL (8.5-10.1); Chloride 104 mmol/L (98-107); Estimated GFR 118.49 (mL/min/1.73m2); Glucose 86 mg/dL (74-106); Potassium 3.6 mmol/L (3.5-5.1); Sodium 140 mmol/L (136-145); Total Protein 7.4 g/dL (6.4-8.2)
[2023-12-19 19:23] LABS: Hemoglobin A1C 5.9 % (<5.7)
== END 2023-12-19 15:39 | disposition home or self-care (01) ==
LOC: NCHCN 15:38
PROVIDERS: Visit Provider Nurse Practitioner Family
DX: R10.31 Right lower quadrant pain (principal); R63.5 Abnormal weight gain; R73.09 Other abnormal glucose; R79.89 Other specified abnormal findings of blood chemistry; Q61.5 Medullary cystic kidney; R82.998 Other abnormal findings in urine
CPT/HCPCS: 80053; 83036; 84443; 85025; 87086

== ENCOUNTER → 2023-12-29 02:24 | Outpatient (CLI) | payer MEDICAID, SELFPAY ==
--- NOTE | 2023-12-29 | DI.US_ITS ---
Exam(s) US RENAL EXAM: US RENAL CLINICAL HISTORY: R39.14 Feeling of incomplete bladder emptying, sensation still full TECHNIQUE: Ultrasound of both kidneys performed using standard protocol. COMPARISON: CT CT RENAL COLIC WO from 08/01/2023 FINDINGS: RIGHT KIDNEY: Measures 10.5 cm in length. No cysts evident. Normal cortical thickness and corticomedullary differen tiation .No solid masses No intrarenal calculi nor hydronephrosis. LEFT KIDNEY: Measures 10.5 cm in length. No cysts evident. Normal cortical thickness and corticomedullary differe ntiaion. No solids masses. No intrarenal calculi nor hydonephrosis. URINARY BLADDER: Completely empty. Therefore not able to be studied. IMPRESSION: 1. No significant ultrasound findings in the kidneys. 2. No hydronephrosis. 3. Bladder not visualized as it was empty. DATA REPOSITORY:
== END ==
PROVIDERS: Visit Provider Nurse Practitioner Family
DX: R39.14 Feeling of incomplete bladder emptying (principal)
CPT/HCPCS: 76770

== ENCOUNTER 2024-06-17 13:15 | Emergency (ER) | payer MEDICAID, SELFPAY ==
[2024-06-17] VITALS (17 sets, daily range): BP systolic 122–149; BP diastolic 75–78; PULSE 99–144; RESP 17–31; TEMP 36.9; O2SAT 94–100
--- NOTE | 2024-06-17 13:48 | ED.GENADUL_ITS ---
Discharge Plan Disposition Patient Disposition: Home Condition: Stable Discharge Details Clinical Impression: Shortness of breath, Acute respiratory infection, Asthma exacerbation Primary Care Provider: Unknown,Unknown ED Provider: Anurag Peoples Home Meds and New Rx's Prescriptions: New doxycycline hyclate 100 mg tablet 100 mg PO BID Qty: 14 0RF dexamethasone 4 mg tablet 10 mg PO DAILY 3 Days Qty: 8 0RF Continued dexmethylphenidate [Focalin XR] 30 mg capsule,ER biphasic 50-50 20 mg PO DAILY Airsupra 90-80 mcg/actuation HFA aerosol inhaler 2 inh inhalation ONCE Qty: 10.7 12RF Rx Instructions: as a single dose; may repeat up to 6 doses per day (12 inhalations) All Day Allergy (cetirizine) 10 mg capsule 10 mg PO DAILY PRN buspirone 7.5 mg tablet 7.5 mg PO TID PRN pantoprazole 40 MG tablet,delayed release (DR/EC) 40 mg PO DAILY methylphenidate HCl [Ritalin] 20 MG tablet 20 mg PO QAM estradiol 1 mg Tablet 2 mg PO DAILY ondansetron 4 mg tablet,disintegrating 4 mg PO TID-QID PRN (Reason: nausea and vomiting) Qty: 20 0RF cetirizine 10 mg tablet 10 mg PO DAILY PRNQty: 7 0RF benzonatate 100 mg capsule 100 mg PO BID PRNQty: 7 0RF Discharge Instructions Instructions: Hypokalemia, Hypomagnesemia Additional Instructions: Your blood work showed your potassium and magnesium were a little low. I recommend increasing your dietary intake of this. If not proving within a week follow-up with your primary care provider If you feel more ill, have severe worsening shortness of breath or new symptoms such as persistent vomiting return to the emergency department for reevaluation HPI General Mode of arrival: ambulatory . Date/Time Provider Initiated Documentation: 06/17/24 13:16 . Limitations to Documentation: no limitations . Information obtained by: patient . History of Present Illness 38 year old F presents to the emergency department with the chief complaint of cough, dyspnea, described as moderate, Quality is described as aching, Patient reports no radiation. Patient started experiencing this day(s) (1) and it has been constant. No relieving factors improve symptom(s), No exacerbating factors reported . Patient notes shortness of breath; denies chest pain and nausea/vomiting. Related Data Home Medications ?Medication ?Instructions ?Recorded ?Confirmed pantoprazole 40 mg tablet,delayed 40 mg PO DAILY 03/19/13 06/17/24 release methylphenidate HCl 20 mg tablet 20 mg PO QAM 03/18/17 06/17/24 (Ritalin) estradiol 1 mg tablet 2 mg PO DAILY 08/13/19 06/17/24 ondansetron 4 mg disintegrating 4 mg PO TID-QID PRN nausea and 11/02/21 06/17/24 tablet vomiting #20 tabs cetirizine 10 mg capsule (All Day 10 mg PO DAILY PRN 03/13/23 06/17/24 Allergy (cetirizine)) buspirone 7.5 mg tablet 7.5 mg PO TID PRN 07/18/23 06/17/24 albuterol 90 mcg-budesonide 80 2 inh inhalation ONCE #10.7 grams 07/24/23 06/17/24 mcg/actuation HFA aerosol inhaler (Airsupra) dexmethylphenidate 30 mg 20 mg PO DAILY 07/24/23 06/17/24 capsule,extended release -27 (Focalin XR) benzonatate 100 mg capsule 100 mg PO BID PRN #7 caps 11/13/23 06/17/24 cetirizine 10 mg tablet 10 mg PO DAILY PRN #7 tabs 11/13/23 06/17/24 dexamethasone 4 mg tablet 10 mg (2.5 x 4 mg) PO DAILY 3 days 06/17/24 #8 tabs doxycycline hyclate 100 mg tablet 100 mg PO BID #14 tabs 06/17/24 Previous Rx's ?Medication ?Instructions ?Recorded ondansetron 4 mg disintegrating 4 mg PO TID-QID PRN nausea and 11/02/21 tablet vomiting #20 tabs albuterol 90 mcg-budesonide 80 2 inh inhalation ONCE #10.7 grams 07/24/23 mcg/actuation HFA aerosol inhaler (Airsupra) benzonatate 100 mg capsule 100 mg PO BID PRN #7 caps 11/13/23 cetirizine 10 mg tablet 10 mg PO DAILY PRN #7 tabs 11/13/23 dexamethasone 4 mg tablet 10 mg (2.5 x 4 mg) PO DAILY 3 days 06/17/24 #8 tabs doxycycline hyclate 100 mg tablet 100 mg PO BID #14 tabs 06/17/24 Allergies Allergy/AdvReac Type Severity Reaction Status Date / Time Sulfa (Sulfonamide Allergy rash/vomiti Unverified 11/13/23 13:10 Antibiotics) ng fluoxetine AdvReac nausea and Verified 11/13/23 13:10 feeling cloudy minded ibuprofen AdvReac Psychosis Unverified 11/13/23 13:10 prednisone AdvReac flashes of Unverified 11/13/23 13:10 light/feels drunk General Stated Complaint: SOB TANA: 3 Review of Systems All systems reviewed & are unremarkable except as noted in HPI and below Constitutional Constitutional: Denies chills, Denies fever(s) and Denies weakness Cardiovascular Cardiovascular: Denies chest pain and Reports dyspnea Respiratory Respiratory: Reports cough and Reports dyspnea Gastrointestinal Gastrointestinal: Denies abdominal pain, Denies nausea and Denies vomiting Neurologic Neurologic: Denies weakness Exam Const General: no acute distress Orientation: alert HENMT Head: normal to inspection Ears: external ears normal General nose exam: external nose normal Mouth: moist mucous membranes Eyes General: appearance normal, both eyes and all related structures Neck Neck: normal visual inspection Resp Effort & Inspection: normal respiratory effort and able to speak in complete sentences Auscultation: rhonchi and wheezes Cardio Jugular venous pressure: no JVD Rate: regular rate Heart Sounds: no murmurs Skin General skin exam: no rashes or lesions noted Neuro General: patient alert and patient oriented x3 Extrem General: normal to inspection Psych Mental Status: mental status grossly normal Course Vital Signs Vital signs: Vital Signs Temperature 36.9 C 06/17/24 13:26 Pulse 144 H 06/17/24 13:26 Respiratory Rate 20 06/17/24 13:26 Blood Pressure 122/75 06/17/24 13:26 Pulse Oximetry 98 06/17/24 13:26 Temperature 36.9 C 06/17/24 13:26 Temperature Source Oral 06/17/24 13:26 Pulse 144 H 06/17/24 13:26 Respiratory Rate 20 06/17/24 13:26 Blood Pressure 122/75 06/17/24 13:26 Blood Pressure Position Sitting 06/17/24 13:26 Pulse Oximetry 98 06/17/24 13:26 Oxygen Delivery Method Room Air 06/17/24 13:26 Oxygen Flow Rate 0 06/17/24 13:26 Medical Decision Making 38-year-old female with history of asthma who comes in with 3 to 4 days of worsening shortness of breath with cough. Says it is intermittently productive. No chest pain or pressure, denies any high fevers, denies smoking or IV drug use. She is coughing persistently during exam. She does have wheezing at the apices bilaterally and rhonchi at the bases bilaterally. She has no leg swelling or calf tenderness. Her symptoms seem consistent with a respiratory infection and asthma exacerbation. Will treat with DuoNebs and dexamethasone as she has a prednisone allergy. Will check CBC CMP and procalcitonin. She has no chest pain or chest pressure and her symptoms are consistent with respiratory infection so do not feel workup for ACS or PE or dissection is indicated at this time. Will also obtain a chest x-ray to evaluate for pneumonia. Labs unremarkable other than mildly low potassium and magnesium, which is repleted with oral medication. X-ray remarkable Fluvid negative, given your persistent cough and a negative Fluvid I will treat you with antibiotics to cover for possible early pneumonia with doxycycline. Will give her 1 more DuoNeb and if remains stable plan for discharge and follow-up with her PCP. Her lung sounds are greatly improved and only has apical wheezing currently. Differential Diagnosis Differential Diagnosis: URI, pneumonia, asthma exacerbation Medical Records Medical records reviewed: Yes I reviewed the patient's medical records. Lab Data Lab results reviewed: Yes I reviewed the patient's lab results. Quality:SDOH Health Related Social Needs: Health related social needs housing instability, house d, with risk of homelessness (Z59.811), food insecurity (Z59.41), material hardship(utilities) (Z59.12), transportation insecurity (Z59.82), education (Z55.6) [facility] All Active Problems (Updated 06/17/24 @ 15:29 by Anurag Peoples MD) Asthma exacerbation (Acute) Acute respiratory infection (Acute) Shortness of breath (Acute) Dyspnea (Acute) Kimberly-Danlos syndrome (Acute) GERD (gastroesophageal reflux disease) (Chronic) Asthma (Chronic) Anxiety disorder (Acute) Chronic post-traumatic stress disorder (PTSD) (Acute) Sciatica (Acute) Anemia (Chronic) Vision changes (Acute) Nephrolithiasis (Chronic) Complex regional pain syndrome I, unspecified (Acute) Syncope (Chronic) Hip pain (Acute) Headache (Acute) Tachycardia (Acute) Knee pain (Acute) Ingrown toenail (Acute) infected Edema (Acute) Rash (Acute) SOB (shortness of breath) (Acute) Cellulitis of foot (Acute) Mold exposure (Acute) Chest tightness (Acute) Environmental and seasonal allergies (Acute) Chronic cough (Acute) COVID-19 (Acute) Screening for STD (sexually transmitted disease) (Acute) Discharge planning issues (Acute) DVT prophylaxis (Acute) Viral gastroenteritis (Acute) Hot flashes due to surgical menopause (Acute) Prediabetes (Acute) Long-term current use of methadone for opiate dependence (Acute) Vomiting (Acute) Fever (Acute) Pyelonephritis (Acute) Acute tonsillitis (Acute 05/31/13) deep vein thrombosis with complication (Acute 04/07/13) received Lovenox during her pregnancies. Bleeding of cervix (Acute 05/03/16) s/p supracervical hysterectomy 2013. Has spotting. Blood glucose abnormal (Acute 03/16/13) Candidal vulvovaginitis (Acute 08/27/13) Choking sensation (Acute 08/30/13) Chronic low back pain without sciatica (Acute 05/03/16) Neg MRI, neg neuro w/u. Most likely neuroskeletal in origin. Chronic pelvic pain in female (Acute 04/14/13) Dysmenorrhea (Acute 06/21/13) Endometriosis (Acute 05/23/16) Fibromyalgia (Acute 05/23/16) Flank pain (Acute 05/23/16) GDM (gestational diabetes mellitus), class A1 (Acute 05/03/16) with previous pregnancies. Random HgbA1c have been normal. 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 Restless leg syndrome (Acute 05/23/16) Disorder of sacrum (Acute) Chronic pain (Acute) Fibromyalgia (Acute) Gastroenteritis due to Cryptosporidium (Acute) Diarrhea with dehydration (Acute) Hypokalemia (Acute) Medical History (Updated 06/17/24 @ 15:29 by Anurag Peoples MD) Medullary cystic kidney Irritable colon Positive urine drug screen 03/19/16 for Codeine and Morphine at time of admission for gastroenteritis. Depression deep vein thrombosis with complication Menorrhagia 12/2012 continued bleeding after PP endometritis. No response to abx/Norethindrone. Nl imaging studies. 06/23/13 hysteroscopy, D+C and Mirena IUD insertion. 11/2013 Pt had laparotomy for supracervical hysterectomy at [facility]. Subclinical hypothyroidism during 3rd . Impaired glucose tolerance during . HgbA1c have been normal. Surgical History (Updated 07/18/23 @ 11:15 by Aubree Nguyen) Umbilical hernia repair History of colonoscopy Ligation of fallopian tube (11/27/07) RCD with bilateral fimbriectomy. Sigmoidoscopy section 08/06/2006 PCD arrest of descent 11/27/2007 RCD with BTL 11/12/2012 Repeat CD at term [facility]. Uterine atony immediately post op Office EMBx 01/11/13 @ [facility] c/w chronic endometritis. 11/13 Admitted to [facility] with fever and pelvic pain s/p IV abx x3day Hysterectomy, Laproscopic November 2013 [facility] converted to supracervical hysterectomy at [facility] [place]. Dilation and curettage (06/23/13) diagnostic hysteroscopy with insertion of Mirena IUD. Benign pathology. No endometritis or adenomyosis Family History (Updated 07/24/23 @ 12:56 by Aubree Nguyen) Father Diabetes Heart disease father 50yo from heart failure. Hyperlipidemia Mental disorder Grandmother Diabetes paternal uncle Mental disorder drug use and eventually suicide Mother Anxiety Depression Social History (Updated 07/18/23 @ 11:17 by Aubree Nguyen) Smoking/Tobacco Use Status: Never Smoking risk assessment performed?: Yes Alcohol Intake: current Alcohol Intake frequency: a few times a month Alcohol type: wine Drug use: Current Sobriety Substance use type: does not use Details: methadone clinic Housing: apartment Do you feel safe at home: Yes Do you feel safe in your relationship?: Yes
[2024-06-17] MEDS: Dexamethasone 10 MG/ML VIAL IVP (13:51)
[2024-06-17] MEDS: Albuterol/Ipratropium 3 ML UPD VIAL UPD ×2 (13:51→15:44)
[2024-06-17 13:56] LABS: Abs Immature Grans 0.02 10^3/uL (0.0-0.06); Absolute Basophil Count 0.04 10^3/uL (0.0-0.2); Absolute Eosinophil Count 0.01 10^3/uL (0.0-0.7); Absolute Lymphocyte Count 1.31 10^3/uL (1.2-3.4); Absolute Neutrophil Count 3.22 10^3/uL (1.2-6.7); Basophils % 0.8 %; Eosinophils % 0.2 %; HCT 38.8 % (36.0-46.0); HGB 12.8 g/dL (11.2-15.7); Immature Grans % 0.4 %; Lymphocytes % 25.2 %; MCH 28.3 pg (27.0-33.0); MCV 86 fL (80-95); MPV 11.9 fL (8.0-11.0); Monocytes % 11.5 %; Neutrophils % 61.9 %; Platelet Count 225 10^3/uL (130-400); RBC 4.52 10^6/uL (3.93-5.22); RDW 12.8 % (11.7-14.6); RDW-SD 40.1 fL
[2024-06-17 14:07] LABS: Magnesium 1.6 mg/dL (1.8-2.4)
[2024-06-17 14:12] LABS: ALT 44 U/L (14-59); AST 36 U/L (15-37); Albumin 4.1 g/dL (3.4-5.0); Alkaline Phosphatase 127 U/L (46-116); BUN 8 mg/dL (7-18); Bilirubin, Total 0.23 mg/dL (0.2-1.0); CREATININE 0.8 mg/dL (0.55-1.02); Chloride 102 mmol/L (98-107); Estimated GFR 97.26 (mL/min/1.73m2); Glucose 128 mg/dL (74-106); Sodium 139 mmol/L (136-145); Total Protein 8.2 g/dL (6.4-8.2)
[2024-06-17 14:14] LABS: HCG Qual (Serum) Negative
--- NOTE | 2024-06-17 14:25 | DI.RAD_ITS ---
Exam(s) XR PORTABLE CHEST AP EXAM: XR PORTABLE CHEST AP CLINICAL HISTORY: cough, dyspnea TECHNIQUE: 2D digital imaging was performed. COMPARISON: CR XR CHEST 2V PA LATERAL from 02/19/2023 FINDINGS: LUNGS: Clear. No pleural abnormality seen. HEART: Normal size. AORTA: Normal diameter. BONES: Unremarkable for age. Soft tissues: Unremarkable. IMPRESSION: No acute findings. DATA REPOSITORY: RADIATION DOSE DELIVERED:
[2024-06-17 14:26] LABS: Procalcitonin < 0.10 ng/mL
[2024-06-17 14:33] LABS: COVID-19 PCR Negative (Negative); Influenza A PCR Negative (Negative); Influenza B PCR Negative (Negative); RSV PCR Negative (Negative)
[2024-06-17 14:35] LABS: Source Nasopharynx
[2024-06-17] MEDS: Potassium Chloride 20 MEQ TABCR 40 MEQ PO (14:52)
[2024-06-17] MEDS: Magnesium Oxide 400 MG TAB 800 MG PO (14:52)
[2024-06-17] MEDS: Doxycycline Hyclate 100 MG CAP PO (15:44)
--- NOTE | 2024-06-19 07:38 | NUR.NOTE ---
Access chart to reconcile EKG orders with EKG's in [facility]. Order cancelled due to no EKG in [facility]. Nursing Note:
== END 2024-06-17 15:59 | disposition home or self-care (01) ==
PROVIDERS: Emergency Provider Emergency Medicine
DX: J45.901 Unspecified asthma with (acute) exacerbation (principal); J06.9 Acute upper respiratory infection, unspecified; Q79.60 Ehlers-Danlos syndrome, unspecified
CPT/HCPCS: 80053; 84145; 87637; 94640; 96374; 99285; 71045; 83735; 84703; 85025; 99284; J1100; J7620

== ENCOUNTER 2024-10-15 15:28 | Outpatient (CLI) | payer MEDICAID, SELFPAY ==
--- NOTE | 2024-10-15 | DI.RAD_ITS ---
Exam(s) XR CHEST 2V PA LATERAL EXAM: XR CHEST 2V PA LATERAL CLINICAL HISTORY: Cough, chest tightness, SOB, chest pain, R07.89; h/o asthma; ? pneumonia TECHNIQUE: 2D digital imaging was performed. Two views. COMPARISON: No exams were available for comparison FINDINGS: HEART: Normal size. Aorta: Not dilated. PULMONARY VASCULATURE: Normal. MEDIASTINUM: Unremarkable. LUNGS: Clear. PLEURAL SPACE: No pleural effusion or pneumothorax. BONE:Unremarkable for age. SOFT TISSUES: Unremarkable. IMPRESSION: No acute abnormality. DATA REPOSITORY: RADIATION DOSE DELIVERED:
== END 2024-10-15 15:48 ==
LOC: DI 15:29
PROVIDERS: PCP Nurse Practitioner Family; Visit Provider Nurse Practitioner Family
DX: R07.89 Other chest pain (principal); R05.9 Cough, unspecified
CPT/HCPCS: 71046

== ENCOUNTER 2024-10-15 15:59 | Outpatient (REF) | payer MEDICAID, SELFPAY ==
[2024-10-15 21:31] LABS: Abs Immature Grans 0.02 10^3/uL (0.0-0.06); Absolute Basophil Count 0.06 10^3/uL (0.0-0.2); Absolute Eosinophil Count 0.14 10^3/uL (0.0-0.7); Absolute Lymphocyte Count 1.12 10^3/uL (1.2-3.4); Absolute Monocyte Count 0.53 10^3/uL (0.1-0.8); Absolute Neutrophil Count 4.77 10^3/uL (1.2-6.7); Basophils % 0.9 %; Eosinophils % 2.1 %; HCT 39.9 % (36.0-46.0); HGB 12.8 g/dL (11.2-15.7); Immature Grans % 0.3 %; Lymphocytes % 16.9 %; MCH 28.1 pg (27.0-33.0); MCHC 32.1 % (32.0-36.0); MCV 88 fL (80-95); MPV 12.7 fL (8.0-11.0); Neutrophils % 71.8 %; Platelet Count 297 10^3/uL (130-400); RBC 4.56 10^6/uL (3.93-5.22); RDW 14.1 % (11.7-14.6); RDW-SD 45.2 fL; WBC 6.64 10^3/uL (4.4-10.8)
[2024-10-15 21:48] LABS: ALT 52 U/L (14-59); AST 38 U/L (15-37); Albumin 3.9 g/dL (3.4-5.0); Alkaline Phosphatase 117 U/L (46-116); Anion Gap 10.3 mmol/L (3-11); BUN 15 mg/dL (7-18); Bilirubin, Total 0.1 mg/dL (0.2-1.0); CO2 24.7 mmol/L (21.0-32.0); CREATININE 0.6 mg/dL (0.55-1.02); Calcium 9.3 mg/dL (8.5-10.1); Calculated LDL 107 mg/dL (<100); Chloride 102 mmol/L (98-107); Cholesterol 192 mg/dL (<200); Estimated GFR 117.75 (mL/min/1.73m2); Glucose 147 mg/dL (74-106); HDL Cholesterol 50 mg/dL (>or=50); Sodium 137 mmol/L (136-145); TSH (W/Ref FT4) 1.31 uIU/mL (0.36-3.74); Triglyceride 177 mg/dL (<150)
[2024-10-15 22:40] LABS: Hemoglobin A1C 5.8 % (<5.7)
== END 2024-10-15 16:00 | disposition home or self-care (01) ==
LOC: NCHCN 15:59
PROVIDERS: PCP Nurse Practitioner Family; Visit Provider Nurse Practitioner Family
DX: E66.9 Obesity, unspecified (principal); Z86.39 Personal history of other endocrine, nutritional and metabolic disease; R53.82 Chronic fatigue, unspecified
CPT/HCPCS: 80053; 80061; 83036; 84443; 85025

== ENCOUNTER 2025-01-17 01:18 | Outpatient (CLI) | payer MEDICAID, SELFPAY ==
--- NOTE | 2025-01-17 | DI.US_ITS ---
Exam(s) US RENAL EXAM: US RENAL CLINICAL HISTORY: LT FLANK PAIN, R10.9,H/O JACK DANLOS SYNDROME,ACUTE COLICKY ABD. TECHNIQUE: Gonzalez scale, color and spectral Doppler were used. COMPARISON: US US RENAL from 12/29/2023 FINDINGS: Renal size in cm: Right: 10.9. Left: 10.3. Echogenicity: Normal. Hydronephrosis: No. Cyst or mass: No. Nephrolithiasis: No. Other findings: None. Bladder:Normal. Ureteral jets: Right: Visualized and unremarkable. Left: Visualized and unremarkable. Prevoid vol:286 cc Postvoid vol:8 cc Renal color flow: Symmetric and within normal limits. IMPRESSION: Unremarkable examination. DATA REPOSITORY:
--- NOTE | 2025-01-17 | DI.US_ITS ---
Exam(s) US HERNIA EXAM: US HERNIA CLINICAL HISTORY: H/O JACK DANLOS SYNDROME,S/P UMBILICAL HERNIA REPAIR,ACUTE COLICKY ABD. TECHNIQUE: Ultrasound was performed using standard protocol. COMPARISON: No exams were available for comparison FINDINGS: Sonographic assessment utilizing grayscale and color Doppler imaging was performed and targeted to the area of clinical concern. Sonographic evaluation of the area of concern was performed. There is no sonographic evidence of an abdominal wall hernia. IMPRESSION: No sonographic evidence of a hernia in the region of interest. DATA REPOSITORY:
== END 2025-01-17 01:38 ==
PROVIDERS: PCP Student in an Organized Health Care Education/Training Program; Visit Provider Student in an Organized Health Care Education/Training Program
DX: R10.9 Unspecified abdominal pain (principal)
CPT/HCPCS: 76770; 76857